=== PATIENT | male | born 1980 | race Caucasian/White ===

== ENCOUNTER 2024-08-10 19:11 | Inpatient (IN) ==
--- NOTE | 2024-08-10 19:22 | Emergency Department Note ---
Impression & Plan Stroke-like episode Admission ED Provider Note HPI: History obtained from EMS. The patient is a 44-year-old gentleman with history of atrial fibrillation, currently on Xarelto, presents to the emergency department with acute onset aphasia and left-sided weakness that occurred approximately 60 minutes prior to arrival to the ER. [facility]. Per EMS crew, the patient has an anaphylactic allergy listed to IV contrast. Patient reportedly developed some aphasia and left-sided paralysis at the present that reportedly occurred at 1740 according to EMS. Per report from EMS the patient did take his Xarelto this morning. On arrival here to the ED the patient is alert, he is aphasic, he is able to follow commands with motor function on the right side but he is not able to speak. ROS: - Per HPI Differential Diagnosis: Acute ischemic stroke, intracranial hemorrhage, conversion disorder, amongst other potential pathologies. *Outpatient medications and allergy history reviewed. 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: (As interpreted by myself): - An order was placed for continuous cardiac monitoring - Patient was noted to be in sinus rhythm with a rate of 70 EKG: (As interpreted by myself): Rate: 68 Rhythm: Normal sinus rhythm Intervals: Within normal limits ST changes: No ST elevation Time: 1935 Interventions provided in ED: - IV Solu-Medrol, aspirin NIH STROKE SCALE: 1A: Level of consciousness Alert; keenly responsive 0 1B: Ask month and age Aphasic +2 1C: 'Blink eyes' & 'squeeze hands' Performs both tasks 0 2: Horizontal extraocular movements Normal 0 3: Visual thomas No visual loss 0 4: Facial palsy Minor paralysis (flat nasolabial fold, smile asymmetry) +1 5A: Left arm motor drift No movement +4 5B: Right arm motor drift No drift for 10 seconds 0 6A: Left leg motor drift No movement +4 6B: Right leg motor drift No drift for 5 seconds 0 7: Limb Ataxia Does not understand 0 8: Sensation Normal; no sensory loss 0 9: Language/aphasia severe aphasia: fragmentary expression, inference needed, cannot identify materials +2 10: Dysarthria 0 11: Extinction/inattention No abnormality 0 TOTAL NIH SCORE = 13 Medical Decision Making: Shortly after the patient arrived, he was sent immediately to CT scan for CT imaging of the head without contrast given his reported anaphylactic reaction to IV contrast. He was not considered a candidate for lysis secondary to being on anticoagulation and taking his medication this morning. CT imaging of the head did not show any evidence of any acute intracranial process. 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 Over suspicion for acute ischemic stroke given the patient's left-sided motor deficits and aphasia, stroke alert was activated prior to his arrival and I did discuss the patient's presentation at this time with the on-call stroke neurologist, Dr. Astudillo. Following my discussion with Dr. Astudillo, it was advised that the patient is comfortable receiving IV contrast that we pretreat the patient, give him IV contrast, and obtain CT angiography of the head and neck to ascertain whether or not he actually has a large vessel occlusion causing these left-sided deficits. Following my discussion with the patient he was able to nod yes or no to questions and said he would like to have the contrast with pretreatment with steroids. CT angiography of the head neck was therefore obtained, this was negative. Dr. Astudillo also did evaluate the patient via telestroke consult, he stated at this time he had low concern for an acute ischemic stroke. He recommended the patient stay here at this facility for observation and further management and this could possibly be related to a conversion disorder. Patient's lab work did not show any evidence of any critical findings, EKG shows sinus rhythm, troponin is negative. I discussed the patient's presentation with the on-call hospitalist, Dr. Meyer, and she accepted the patient for inpatient care. Consultants/Discussions held with other healthcare providers: - Stroke neurology, Dr. Astudillo - Hospitalist, Dr. Meyer Disposition discussion held by myself with: - Patient and [facility] staff at the bedside Diagnosis: 1. Strokelike event, acute Disposition: Admission Cooper Lutz DO Emergency Medicine Past Med/Surg History Problem List (Updated 08/10/24 @ 22:52 by Cooper Lutz DO) Stroke-like episode (Acute) Medical History (Updated 08/10/24 @ 22:52 by Cooper Lutz DO) Stroke Hypertension GERD (gastroesophageal reflux disease) Atrial fibrillation Social History Feels Safe at Home: Yes Allergies Allergies Allergy/AdvReac Type Severity Reaction Status Date / Time Iodinated Contrast Media Allergy Severe Anaphylaxis Verified 08/10/24 19:39 iodine Allergy Severe Anaphylaxis Verified 08/10/24 19:39 aripiprazole [From Abilify] Allergy Unknown ON SCI Verified 08/10/24 19:39 [facility] bee venom protein (honey bee) Allergy Unknown ON SCI Verified 08/10/24 19:39 [facility] L[facility] diphenhydramine Allergy Unknown ON SCI Verified 08/10/24 19:39 [From Benadryl Allergy] [facility] Fish Containing Products Allergy Unknown ON SCI Verified 08/10/24 19:39 [facility] latex Allergy Unknown ON SCI Verified 08/10/24 19:39 [facility] mustard Allergy Unknown ON SCI Verified 08/10/24 19:39 [facility] olanzapine [From Zyprexa] Allergy Unknown ON SCI Verified 08/10/24 19:39 [facility] Penicillins Allergy Unknown ON SCI Verified 08/10/24 19:39 [facility] SEAFOOD Allergy Severe Anaphylaxis Uncoded 08/10/24 19:39 ALLERGY MEDICINE COMPLETE Allergy Unknown ON SCI Uncoded 08/10/24 19:39 [facility] GRAVY Allergy Unknown ON SCI Uncoded 08/10/24 19:39 [facility] Home Meds Home Medications Medication Instructions Recorded Confirmed albuterol sulfate 90 mcg/actuation 2 puff inhalation QID PRN 08/10/24 08/10/24 aerosol inhaler Shortness Of Breath aspirin 81 mg tablet,delayed 81 mg PO DAILY 08/10/24 08/10/24 release fusndrg-rfmkgvajaespz-rwrkmauc 250 2 tab PO BID PRN Headache 08/10/24 08/10/24 mg-250 mg-65 mg tablet (Excedrin Migraine) atorvastatin 80 mg tablet 80 mg PO HS 08/10/24 08/10/24 famotidine 20 mg tablet 20 mg PO HS 08/10/24 08/10/24 fluticasone 500 mcg-salmeterol 50 1 inh inhalation BID 08/10/24 08/10/24 mcg/dose blistr powdr for inhalation (Advair Diskus) lisinopril 20 mg tablet 20 mg PO DAILY 08/10/24 08/10/24 nebivolol 20 mg tablet 20 mg PO DAILY 08/10/24 08/10/24 nitroglycerin 0.4 mg sublingual 0.4 mg sublingual DIRECTED PRN 08/10/24 08/10/24 tablet (Nitrostat) Chest Pain pantoprazole 40 mg tablet,delayed 40 mg PO DAILY 08/10/24 08/10/24 release rivaroxaban 20 mg tablet (Xarelto) 20 mg PO DAILY 08/10/24 08/10/24 vitamin E 1 applic topical DAILY 08/10/24 08/10/24 Results & Data (ED) Vital Signs Vital Signs - 24 hr 08/10/24 19:17 08/10/24 19:17 08/10/24 19:17 Temperature 37.1 C 37.1 C Temperature Source Oral Oral Pulse Rate 74 Pulse Rate [Left Finger] 82 Pulse Rate from SpO2 Sensor Pulse Rhythm [Left Finger] Irregular Pulse Strength [Left Finger] Normal Respiratory Rate 19 25 H Respiratory Effort / Characteristics Non-Labored Spontaneous Non-Labored Spontaneous Respiratory Depth Normal Normal Respiratory Pattern Regular Regular Blood Pressure 138/109 H Blood Pressure [Left Arm] 172/136 H Blood Pressure Mean 118 Blood Pressure Mean [Left Arm] 148 Blood Pressure Position Lying Blood Pressure Position [Left Arm] Lying Pulse Oximetry 97 98 Oxygen Delivery Method Room Air Room Air Room Air Sepsis Recent Fever Within 48 Hours No Sepsis New/Unexplained Change in Mental Status No Sepsis Action Taken by Nursing No Action Required 08/10/24 19:27 08/10/24 19:30 08/10/24 19:31 Temperature Temperature Source Pulse Rate 80 101 H Pulse Rate [Left Finger] Pulse Rate from SpO2 Sensor 87 Pulse Rhythm [Left Finger] Pulse Strength [Left Finger] Respiratory Rate 22 Respiratory Effort / Characteristics Respiratory Depth Respiratory Pattern Blood Pressure 170/129 H Blood Pressure [Left Arm] Blood Pressure Mean 133 Blood Pressure Mean [Left Arm] Blood Pressure Position Blood Pressure Position [Left Arm] Pulse Oximetry 99 Oxygen Delivery Method Sepsis Recent Fever Within 48 Hours Sepsis New/Unexplained Change in Mental Status Sepsis Action Taken by Nursing 08/10/24 19:31 08/10/24 19:33 08/10/24 19:35 Temperature Temperature Source Pulse Rate 77 Pulse Rate [Left Finger] Pulse Rate from SpO2 Sensor 77 Pulse Rhythm [Left Finger] Pulse Strength [Left Finger] Respiratory Rate Respiratory Effort / Characteristics Respiratory Depth Respiratory Pattern Blood Pressure 170/129 H 185/125 H Blood Pressure [Left Arm] Blood Pressure Mean 133 144 Blood Pressure Mean [Left Arm] Blood Pressure Position Blood Pressure Position [Left Arm] Pulse Oximetry 99 Oxygen Delivery Method Sepsis Recent Fever Within 48 Hours Sepsis New/Unexplained Change in Mental Status Sepsis Action Taken by Nursing 08/10/24 19:40 08/10/24 19:40 08/10/24 19:45 Temperature Temperature Source Pulse Rate 74 Pulse Rate [Left Finger] Pulse Rate from SpO2 Sensor 75 Pulse Rhythm [Left Finger] Pulse Strength [Left Finger] Respiratory Rate 14 Respiratory Effort / Characteristics Respiratory Depth Respiratory Pattern Blood Pressure 164/128 H 164/128 H Blood Pressure [Left Arm] Blood Pressure Mean 136 136 Blood Pressure Mean [Left Arm] Blood Pressure Position Blood Pressure Position [Left Arm] Pulse Oximetry 97 Oxygen Delivery Method Sepsis Recent Fever Within 48 Hours Sepsis New/Unexplained Change in Mental Status Sepsis Action Taken by Nursing 08/10/24 19:45 08/10/24 19:45 08/10/24 19:45 Temperature Temperature Source Pulse Rate Pulse Rate [Left Finger] Pulse Rate from SpO2 Sensor Pulse Rhythm [Left Finger] Pulse Strength [Left Finger] Respiratory Rate Respiratory Effort / Characteristics Respiratory Depth Respiratory Pattern Blood Pressure 138/109 H 138/109 H 138/109 H Blood Pressure [Left Arm] Blood Pressure Mean 115 115 115 Blood Pressure Mean [Left Arm] Blood Pressure Position Blood Pressure Position [Left Arm] Pulse Oximetry Oxygen Delivery Method Sepsis Recent Fever Within 48 Hours Sepsis New/Unexplained Change in Mental Status Sepsis Action Taken by Nursing 08/10/24 19:45 08/10/24 19:48 08/10/24 19:51 Temperature Temperature Source Pulse Rate 72 Pulse Rate [Left Finger] Pulse Rate from SpO2 Sensor 72 Pulse Rhythm [Left Finger] Pulse Strength [Left Finger] Respiratory Rate 16 Respiratory Effort / Characteristics Respiratory Depth Respiratory Pattern Blood Pressure 138/109 H 172/136 H Blood Pressure [Left Arm] Blood Pressure Mean 115 149 Blood Pressure Mean [Left Arm] Blood Pressure Position Blood Pressure Position [Left Arm] Pulse Oximetry 98 Oxygen Delivery Method Sepsis Recent Fever Within 48 Hours Sepsis New/Unexplained Change in Mental Status Sepsis Action Taken by Nursing 08/10/24 19:54 08/10/24 19:55 08/10/24 20:00 Temperature Temperature Source Pulse Rate 79 82 Pulse Rate [Left Finger] Pulse Rate from SpO2 Sensor 78 84 Pulse Rhythm [Left Finger] Pulse Strength [Left Finger] Respiratory Rate 17 19 Respiratory Effort / Characteristics Respiratory Depth Respiratory Pattern Blood Pressure 182/123 H Blood Pressure [Left Arm] Blood Pressure Mean 139 Blood Pressure Mean [Left Arm] Blood Pressure Position Blood Pressure Position [Left Arm] Pulse Oximetry 98 97 Oxygen Delivery Method Sepsis Recent Fever Within 48 Hours Sepsis New/Unexplained Change in Mental Status Sepsis Action Taken by Nursing 08/10/24 20:00 08/10/24 20:00 08/10/24 20:12 Temperature Temperature Source Pulse Rate 78 Pulse Rate [Left Finger] Pulse Rate from SpO2 Sensor 78 Pulse Rhythm [Left Finger] Pulse Strength [Left Finger] Respiratory Rate 23 Respiratory Effort / Characteristics Respiratory Depth Respiratory Pattern Blood Pressure 169/118 H 169/118 H Blood Pressure [Left Arm] Blood Pressure Mean 129 129 Blood Pressure Mean [Left Arm] Blood Pressure Position Blood Pressure Position [Left Arm] Pulse Oximetry 97 Oxygen Delivery Method Sepsis Recent Fever Within 48 Hours Sepsis New/Unexplained Change in Mental Status Sepsis Action Taken by Nursing 08/10/24 20:19 08/10/24 20:21 08/10/24 20:30 Temperature Temperature Source Pulse Rate 78 Pulse Rate [Left Finger] Pulse Rate from SpO2 Sensor 78 Pulse Rhythm [Left Finger] Pulse Strength [Left Finger] Respiratory Rate 22 Respiratory Effort / Characteristics Respiratory Depth Respiratory Pattern Blood Pressure 172/106 H 149/110 H Blood Pressure [Left Arm] Blood Pressure Mean 145 121 Blood Pressure Mean [Left Arm] Blood Pressure Position Blood Pressure Position [Left Arm] Pulse Oximetry 96 Oxygen Delivery Method Sepsis Recent Fever Within 48 Hours Sepsis New/Unexplained Change in Mental Status Sepsis Action Taken by Nursing 08/10/24 20:30 08/10/24 20:30 08/10/24 20:54 Temperature Temperature Source Pulse Rate 74 68 Pulse Rate [Left Finger] Pulse Rate from SpO2 Sensor 74 68 Pulse Rhythm [Left Finger] Pulse Strength [Left Finger] Respiratory Rate 19 19 Respiratory Effort / Characteristics Respiratory Depth Respiratory Pattern Blood Pressure 149/110 H Blood Pressure [Left Arm] Blood Pressure Mean 121 Blood Pressure Mean [Left Arm] Blood Pressure Position Blood Pressure Position [Left Arm] Pulse Oximetry 96 96 Oxygen Delivery Method Sepsis Recent Fever Within 48 Hours Sepsis New/Unexplained Change in Mental Status Sepsis Action Taken by Nursing 08/10/24 21:00 08/10/24 21:01 08/10/24 21:01 Temperature Temperature Source Pulse Rate 74 Pulse Rate [Left Finger] Pulse Rate from SpO2 Sensor 65 Pulse Rhythm [Left Finger] Pulse Strength [Left Finger] Respiratory Rate 22 Respiratory Effort / Characteristics Respiratory Depth Respiratory Pattern Blood Pressure 157/90 H 157/90 H Blood Pressure [Left Arm] Blood Pressure Mean 133 133 Blood Pressure Mean [Left Arm] Blood Pressure Position Blood Pressure Position [Left Arm] Pulse Oximetry 95 Oxygen Delivery Method Sepsis Recent Fever Within 48 Hours Sepsis New/Unexplained Change in Mental Status Sepsis Action Taken by Nursing 08/10/24 21:08 08/10/24 21:15 08/10/24 21:15 Temperature Temperature Source Pulse Rate Pulse Rate [Left Finger] 70 Pulse Rate from SpO2 Sensor Pulse Rhythm [Left Finger] Pulse Strength [Left Finger] Respiratory Rate 22 Respiratory Effort / Characteristics Non-Labored Spontaneous Respiratory Depth Normal Respiratory Pattern Regular Blood Pressure 134/89 134/89 Blood Pressure [Left Arm] 136/89 Blood Pressure Mean 104 104 Blood Pressure Mean [Left Arm] 104 Blood Pressure Position Blood Pressure Position [Left Arm] Lying Pulse Oximetry 96 Oxygen Delivery Method Room Air Sepsis Recent Fever Within 48 Hours Sepsis New/Unexplained Change in Mental Status Sepsis Action Taken by Nursing 08/10/24 21:15 08/10/24 21:15 Temperature Temperature Source Pulse Rate 75 Pulse Rate [Left Finger] Pulse Rate from SpO2 Sensor 72 Pulse Rhythm [Left Finger] Pulse Strength [Left Finger] Respiratory Rate 12 Respiratory Effort / Characteristics Respiratory Depth Respiratory Pattern Blood Pressure 134/89 Blood Pressure [Left Arm] Blood Pressure Mean 104 Blood Pressure Mean [Left Arm] Blood Pressure Position Blood Pressure Position [Left Arm] Pulse Oximetry 95 Oxygen Delivery Method Sepsis Recent Fever Within 48 Hours Sepsis New/Unexplained Change in Mental Status Sepsis Action Taken by Nursing Laboratory Data 08/10/24 19:29 08/10/24 19:29 Lab Results 08/10/24 08/10/24 08/10/24 Range/Units 19:29 19:33 19:34 WBC 8.03 (4.8-10.8) K/ul RBC 5.02 (4.70-6.10) M/uL Hgb 15.3 (14.0-18.0) g/dl POC Hgb 15.0 (14.0-18.0) g/dl Hct 44.3 (42.0-52.0) % POC Hct 44 (42-52) % MCV 88.2 (80.0-100.0) fL MCH 30.5 (25.0-34.0) pg MCHC 34.5 (32.0-36.0) g/dL RDW Std Deviation 41.1 (36.4-46.3) fL RDW Coeff of Margareth 12.7 (11.5-14.5) % Plt Count 156 (130-400) K/uL MPV 11.7 (9.4-12.4) fL Immature Gran % (Auto) 0.2 % Neut % (Auto) 58.2 % Lymph % (Auto) 28.3 % [place] % (Auto) 9.0 % Eos % (Auto) 3.6 % Baso % (Auto) 0.7 % Neut # (Auto) 4.67 (1.40-6.50) K/uL Lymph # (Auto) 2.27 (1.20-3.40) K/uL [place] # (Auto) 0.72 H (0.11-0.59) K/uL Eos # (Auto) 0.29 (0.00-0.50) K/uL Baso # (Auto) 0.06 (0.00-0.20) K/uL Immature Gran # (Auto) 0.02 (0.01-0.20) K/uL PT 11.3 (9.0-12.0) Seconds INR 1.0 (0.9-1.1) APTT 28 (21-31) Seconds PTT Ratio 1.0 POC Sodium 142 (135-144) mmol/L Sodium 139 (136-145) mmol/L POC Potassium 3.8 (3.3-5.0) mmol/L Potassium 3.8 (3.5-5.1) mmol/L POC Chloride 100 L (101-112) mmol/L Chloride 105 (98-107) mmol/L Carbon Dioxide 31 (21-32) mmol/L POC Total CO2 25 (24-31) mmol/L Anion Gap 3 (3-11) POC Anion Gap 21.0 (16-25) mmol/L POC BUN 11 (7-18) mg/dl BUN 12 (6-23) mg/dl Creatinine 1.08 (0.6-1.4) mg/dl POC Creatinine 1.2 (0.6-1.3) mg/dl Est Cr Clr Drug Dosing 97.7 ml/min eGFR 86.24 BUN/Creatinine Ratio 11.1 (10-20) Glucose 137 H (70-99(Fasting)) mg/dl POC Glucose 124 H (70-99) mg/dl POC Glucose (other) 137 H (70-99) mg/dl Calcium 9.2 (8.6-10.3) mg/dl POC Ioniz Calcium Marivel 1.19 (1.12-1.32) mmol/l Magnesium 2.0 (1.7-2.4) mg/dl Total Bilirubin 1.0 (0.2-1.0) mg/dl AST 19 (13-39) U/L ALT 28 (7-52) U/L Alkaline Phosphatase 68 (34-104) U/L Troponin I High Sens < 2.3 (0-20) pg/ml Total Protein 7.0 (6.0-8.3) gm/dl Albumin 4.3 (3.4-5.0) gm/dl Globulin 2.7 (2.5-4.0) gm/dl Albumin/Globulin Ratio 1.6 (0.9-2) Administered Medications Lactated Ringer's (Lr) 1,000 mls @ 125 mls/hr IV .Q8H MELINA Stop: 08/11/24 06:16 Last Admin: 08/10/24 22:31 Dose: 125 mls/hr Documented By: KDL Discontinued Medications Aspirin (Aspirin Chew 324 Mg) 324 mg PO NOW STA Stop: 08/10/24 20:49 Last Admin: 08/10/24 20:58 Dose: 324 mg Documented By: BASSEM Ioversol (Optiray 320 125ml) 115 ml IV ONCE ONE Stop: 08/10/24 20:07 Last Admin: 08/10/24 20:07 Dose: 115 ml Documented By: KAREN Methylprednisolone (Methylprednisolone 125 Mg/2 Ml Vial) Confirm Administered Dose 125 mg .ROUTE .STK-MED ONE Stop: 08/10/24 19:56 Last Admin: 08/10/24 20:00 Dose: Not Given Documented By: BASSEM Methylprednisolone (Methylprednisolone 125 Mg/2 Ml Vial) 125 mg IV NOW ONE Stop: 08/10/24 19:56 Last Admin: 08/10/24 20:00 Dose: 125 mg Documented By: BASSEM Imaging Data Radiologist's Impression: Head CT 08/10/24 19:20 EXAMINATION: Head CT without CLINICAL HISTORY: Left-sided weakness PRIORS: None TECHNIQUE: Contiguous axial images were obtained through the head without the use of intravenous contrast. Sagittal and coronal reformations are supplied. FINDINGS: Motion artifact degrades image quality. Appropriate parenchymal volume is noted. Valverde-white differentiation is preserved. No edema or midline shift. Linear appearing lucency present in the left basal ganglia, image 46 through 50 without chronic appearance likely representing a vascular channel or remote infarction No intra-axial or extra-axial hemorrhage. Ventricles are normal in size and configuration. Brainstem and cerebellum have a normal appearance. Moderate to advanced atherosclerotic disease of the distal vertebral arteries at the level of the brainstem at the edge of the [id number]. Calvarium unremarkable. Paranasal sinuses and mastoid air cells are well-pneumatized. Globes are intact. No retrobulbar abnormality. IMPRESSION: 1. No CT evidence of an acute intracranial abnormality. 2. Moderate to advanced atherosclerotic diseases within the syacq-[id number] involving the bilateral distal vertebral arteries at the level of the brainstem. Electronically signed by Tamia Tony 08-10-2024 7:38 PM Head CTA 08/10/24 19:55 CR Exam(s): CTA HEAD With Contrast IV Amt: 115 ml optiray 320 EXAM: CT Angiography Head With Intravenous Contrast CLINICAL HISTORY: Reason for exam: stroke. TECHNIQUE: Axial computed tomographic angiography images of the head with intravenous contrast. CTDI is 18.68 mGy and DLP is 9.34 mGy-cm. Automated exposure control was utilized for the study. A dose lowering technique was utilized adhering to the principles of ALARA. MIP reconstructed images were created and reviewed. CONTRAST: Patient received 115 ml optiray 320 of IV contrast COMPARISON: No relevant prior studies available. FINDINGS: Right internal carotid artery: Intracranial segment is patent with no significant stenosis. No aneurysm. Right anterior cerebral artery: No occlusion or significant stenosis. No aneurysm. Right middle cerebral artery: No occlusion or significant stenosis. No aneurysm. Right posterior cerebral artery: No occlusion or significant stenosis. No aneurysm. Right vertebral artery: Atherosclerotic calcifications at the right vertebral dural entrance causing 50% stenosis. Left internal carotid artery: Intracranial segment is patent with no significant stenosis. No aneurysm. Left anterior cerebral artery: No occlusion or significant stenosis. No aneurysm. Left middle cerebral artery: No occlusion or significant stenosis. No aneurysm. Left posterior cerebral artery: No occlusion or significant stenosis. No aneurysm. Left vertebral artery: Unremarkable as visualized. Basilar artery: No occlusion or significant stenosis. No aneurysm. IMPRESSION: No acute findings in the arteries of the head/brain. Communications: Call Doctor Stroke Electronically signed by: Tavares Wade MD 08/10/24 20:29 PM Neck CTA 08/10/24 19:55 CR Exam(s): CTA NECK With Contrast IV Amt: 115 ml optiray 320 EXAM: CT Angiography Neck With Intravenous Contrast CLINICAL HISTORY: Reason for exam: stroke. TECHNIQUE: Routine carotid CT angiography protocol was performed with intravenous contrast. NASCET criteria using the distal ICAs for comparison were used for evaluation of stenoses. CTDI is 12.8 mGy and DLP is 474.3 mGy-cm. Automated exposure control was utilized for the study. A dose lowering technique was utilized adhering to the principles of ALARA. MIP reconstructed images were created and reviewed. CONTRAST: Patient received 115 ml optiray 320 of IV contrast COMPARISON: None. FINDINGS: VASCULATURE: Right common carotid artery: No occlusion or significant stenosis. No dissection. Right internal carotid artery: Extracranial segment is patent with no occlusion or significant stenosis. No dissection. Right vertebral artery: No occlusion or significant stenosis. No dissection. Left common carotid artery: No occlusion or significant stenosis. No dissection. Left internal carotid artery: Extracranial segment is patent with no occlusion or significant stenosis. No dissection. Left vertebral artery: No occlusion or significant stenosis. No dissection. NECK: Bones/joints: Unremarkable. No acute fracture. Soft tissues: Unremarkable. Lung apices: Clear. CAROTID STENOSIS REFERENCE USING NASCET CRITERIA: % ICA stenosis = (1 - narrowest ICA diameter/diameter of distal cervical ICA) x 100. Mild - <50% stenosis. Moderate - 50-69% stenosis. Severe - 70-94% stenosis. Near occlusion - 95-99% stenosis. Occluded - 100% stenosis. IMPRESSION: Negative CTA neck. Communications: Call Doctor Stroke Electronically signed by: Tavares Wade MD 08/10/24 20:30 PM Discharge Plan Visit Data Chief Complaint: Stroke Alert Stated Complaint: L Sided Paralysis, Complete Aphasia, HUGHES ED Provider: Cooper Lutz Discharge Problem: Stroke-like episode Patient Disposition: Admitted As Inpatient Discharge Instructions Interventions: ED Discharge Assessment Last Done: 08/10/24 22:07
--- NOTE | 2024-08-10 19:39 | CT Scan Report ---
EXAMINATION: Head CT without CLINICAL HISTORY: Left-sided weakness PRIORS: None TECHNIQUE: Contiguous axial images were obtained through the head without the use of intravenous contrast. Sagittal and coronal reformations are supplied. FINDINGS: Motion artifact degrades image quality. Appropriate parenchymal volume is noted. Valverde-white differentiation is preserved. No edema or midline shift. Linear appearing lucency present in the left basal ganglia, image 46 through 50 without chronic appearance likely representing a vascular channel or remote infarction No intra-axial or extra-axial hemorrhage. Ventricles are normal in size and configuration. Brainstem and cerebellum have a normal appearance. Moderate to advanced atherosclerotic disease of the distal vertebral arteries at the level of the brainstem at the edge of the [id number]. Calvarium unremarkable. Paranasal sinuses and mastoid air cells are well-pneumatized. Globes are intact. No retrobulbar abnormality. IMPRESSION: 1. No CT evidence of an acute intracranial abnormality. 2. Moderate to advanced atherosclerotic diseases within the [id number] involving the bilateral distal vertebral arteries at the level of the brainstem. Electronically signed by Tamia oTny 08-10-2024 7:38 PM
[2024-08-10 19:45] LABS: Basophils # (auto) 0.06 K/uL (0.00-0.20); Basophils % (auto) 0.7 %; Eosinophils # (auto) 0.29 K/uL (0.00-0.50); Eosinophils % (auto) 3.6 %; Hematocrit (blood only) 44.3 % (42.0-52.0); Hemoglobin 15.3 g/dl (14.0-18.0); Immature Granulocytes # (auto) 0.02 K/uL (0.01-0.20); Immature Granulocytes % (auto) 0.2 %; Lymphocytes # (auto) 2.27 K/uL (1.20-3.40); Lymphocytes % (auto) 28.3 %; Mean Corpuscular Hemoglobin 30.5 pg (25.0-34.0); Mean Corpuscular Hgb Conc 34.5 g/dL (32.0-36.0); Mean Corpuscular Volume 88.2 fL (80.0-100.0); Mean Platelet Volume 11.7 fL (9.4-12.4); Monocytes # (auto) 0.72 K/uL (0.11-0.59); Neutrophils # (auto) 4.67 K/uL (1.40-6.50); Neutrophils % (auto) 58.2 %; Platelet Count 156 K/uL (130-400); RDW Coefficient of Variation 12.7 % (11.5-14.5); RDW Standard Deviation 41.1 fL (36.4-46.3); Red Blood Count 5.02 M/uL (4.70-6.10); White Blood Count 8.03 K/ul (4.8-10.8)
[2024-08-10 19:46] LABS: iSTAT Creatinine 1.2 mg/dl (0.6-1.3); iSTAT Ionized Calcium 1.19 mmol/l (1.12-1.32); iSTAT Potassium 3.8 mmol/L (3.3-5.0)
[2024-08-10] MEDS: methylPREDNISolone 125 MG/2 ML VIAL ONE (20:00)
[2024-08-10] MEDS: methylPREDNISolone 125 MG/2 ML VIAL IV ONE (20:00)
[2024-08-10 20:02] LABS: Alanine Aminotransferase 28 U/L (7-52); Albumin Globulin Ratio 1.6 (0.9-2); Albumin Level 4.3 gm/dl (3.4-5.0); Alkaline Phosphatase 68 U/L (34-104); Anion Gap 3 (3-11); Aspartate Aminotransferase 19 U/L (13-39); BUN Creatinine Ratio 11.1 (10-20); Blood Urea Nitrogen 12 mg/dl (6-23); Calcium 9.2 mg/dl (8.6-10.3); Carbon Dioxide 31 mmol/L (21-32); Chloride 105 mmol/L (98-107); Creatinine Clr Calc Pharmacy 97.7 ml/min; Globulin 2.7 gm/dl (2.5-4.0); Glucose 137 mg/dl (70-99(Fasting)); Potassium 3.8 mmol/L (3.5-5.1); Sodium 139 mmol/L (136-145)
[2024-08-10] MEDS: OPTIRAY 320 125ml IV ONE (20:07)
[2024-08-10 20:08] LABS: Troponin I High Sensitivity < 2.3 pg/ml (0-20)
[2024-08-10 20:12] LABS: Partial Thromboplastin Time 28 Seconds (21-31); Prothrombin Time 11.3 Seconds (9.0-12.0)
--- NOTE | 2024-08-10 20:30 | CT Scan Report ---
Exam(s): CTA HEAD With Contrast IV Amt: 115 ml optiray 320 EXAM: CT Angiography Head With Intravenous Contrast CLINICAL HISTORY: Reason for exam: stroke. TECHNIQUE: Axial computed tomographic angiography images of the head with intravenous contrast. CTDI is 18.68 mGy and DLP is 9.34 mGy-cm. Automated exposure control was utilized for the study. A dose lowering technique was utilized adhering to the principles of ALARA. MIP reconstructed images were created and reviewed. CONTRAST: Patient received 115 ml optiray 320 of IV contrast COMPARISON: No relevant prior studies available. FINDINGS: Right internal carotid artery: Intracranial segment is patent with no significant stenosis. No aneurysm. Right anterior cerebral artery: No occlusion or significant stenosis. No aneurysm. Right middle cerebral artery: No occlusion or significant stenosis. No aneurysm. Right posterior cerebral artery: No occlusion or significant stenosis. No aneurysm. Right vertebral artery: Atherosclerotic calcifications at the right vertebral dural entrance causing 50% stenosis. Left internal carotid artery: Intracranial segment is patent with no significant stenosis. No aneurysm. Left anterior cerebral artery: No occlusion or significant stenosis. No aneurysm. Left middle cerebral artery: No occlusion or significant stenosis. No aneurysm. Left posterior cerebral artery: No occlusion or significant stenosis. No aneurysm. Left vertebral artery: Unremarkable as visualized. Basilar artery: No occlusion or significant stenosis. No aneurysm. IMPRESSION: No acute findings in the arteries of the head/brain. Communications: Call Doctor Stroke Electronically signed by: Tavares Wade MD 08/10/24 20:29 PM
--- NOTE | 2024-08-10 20:31 | CT Scan Report ---
Exam(s): CTA NECK With Contrast IV Amt: 115 ml optiray 320 EXAM: CT Angiography Neck With Intravenous Contrast CLINICAL HISTORY: Reason for exam: stroke. TECHNIQUE: Routine carotid CT angiography protocol was performed with intravenous contrast. NASCET criteria using the distal ICAs for comparison were used for evaluation of stenoses. CTDI is 12.8 mGy and DLP is 474.3 mGy-cm. Automated exposure control was utilized for the study. A dose lowering technique was utilized adhering to the principles of ALARA. MIP reconstructed images were created and reviewed. CONTRAST: Patient received 115 ml optiray 320 of IV contrast COMPARISON: None. FINDINGS: VASCULATURE: Right common carotid artery: No occlusion or significant stenosis. No dissection. Right internal carotid artery: Extracranial segment is patent with no occlusion or significant stenosis. No dissection. Right vertebral artery: No occlusion or significant stenosis. No dissection. Left common carotid artery: No occlusion or significant stenosis. No dissection. Left internal carotid artery: Extracranial segment is patent with no occlusion or significant stenosis. No dissection. Left vertebral artery: No occlusion or significant stenosis. No dissection. NECK: Bones/joints: Unremarkable. No acute fracture. Soft tissues: Unremarkable. Lung apices: Clear. CAROTID STENOSIS REFERENCE USING NASCET CRITERIA: % ICA stenosis = (1 - narrowest ICA diameter/diameter of distal cervical ICA) x 100. Mild - <50% stenosis. Moderate - 50-69% stenosis. Severe - 70-94% stenosis. Near occlusion - 95-99% stenosis. Occluded - 100% stenosis. IMPRESSION: Negative CTA neck. Communications: Call Doctor Stroke Electronically signed by: Tavares Wade MD 08/10/24 20:30 PM
[2024-08-10] MEDS: ASPIRIN CHEW 324 MG PO STA (20:58)
--- NOTE | 2024-08-10 21:20 | History & Physical Report ---
Date of Service August 10, 2024 Assessment & Plan (1) Stroke: (2) Atrial fibrillation: (3) GERD (gastroesophageal reflux disease): (4) Hypertension: Plan 44-year-old male with history of atrial fibrillation on Xarelto anticoagulation, hypertension, GERD presenting with acute onset left-sided weakness occurring at 1940 this evening. Patient also with total aphasia. He reports extensive history of prior strokes and TIAs in the past. Reports compliance with his medications including his Xarelto, aspirin and atorvastatin #Strokepatient presenting with strokelike symptoms as above. Possible stroke versus TIA versus psychosomatic. Pattern would suggest possible right MCA stroke. CT angio as well as CT of the head unremarkable. Patient not a candidate for thrombolytics given the fact that he is on daily Xarelto Admit to PCU NIH stroke scale daily, neurochecks per protocol Speech/swallow evaluation. Patient was able to take oral aspirin with a sip of water in the ER with no evidence of aspiration Check MRI brain Check 2D echo with bubble study Check hemoglobin A1c and lipid panel Request prior records from [facility] PT/OT/speech therapy appreciated Continue aspirin 81 mg p.o. daily Continue atorvastatin 80 mg p.o. nightly Awaiting note to be placed from stroke neurologist from [facility] #atrial fibrillationpatient presently in normal sinus rhythm at 68 bpm Hold Xarelto for now Hold Nebivolol for now to allow for permissive hypertension #GERD Protonix 40 mg IV daily Pepcid 20 mg IV twice daily Transition to oral medications after speech/swallow evaluation Hypertensionblood pressure is presently at goal Hold Nebivolol and lisinopril to allow for permissive hypertension Continue to monitor History of Present Illness Chief Complaint: Left-sided flaccid paralysis Primary Care Provider: SANAZ Ahn Anibal Krishan Is a 44-year-old male with history of atrial fibrillation on Xarelto anticoagulation, reports 5 prior strokes as well as 40 prior TIAs in the past with residual weakness of left lower extremity. Patient is wheelchair- bound at baseline. He reports compliance with his medications. This evening August 10 around 1740 patient developed acute left-sided deficits, flaccid paralysis of left upper extremity as well as left lower extremity and complete aphasia. Patient presented as a code stroke. Angiograms initially delayed slightly due to reported anaphylactic reaction to IV dye. This was confirmed with the present and patient was indeed able to receive IV dye. He is complaining of slight right-sided headache as well as black dots in his vision coming and going. Otherwise denies fever, chills, chest pain, palpitations, shortness of breath, abdominal pain, nausea, vomiting, diarrhea. Reports he is eating well. Bowels are moving without difficulty. He reports being in his usual state of health prior to this episode Of note, patient aphasic therefore provided history with use of pointing to communication board Allergies Allergy/AdvReac Type Severity Reaction Status Date / Time Iodinated Contrast Media Allergy Severe Anaphylaxis Verified 08/10/24 19:39 iodine Allergy Severe Anaphylaxis Verified 08/10/24 19:39 aripiprazole [From Abilify] Allergy Unknown ON SCI Verified 08/10/24 19:39 [facility] LIST bee venom protein (honey bee) Allergy Unknown ON SCI Verified 08/10/24 19:39 [facility] MED LIST diphenhydramine Allergy Unknown ON SCI Verified 08/10/24 19:39 [From Benadryl Allergy] [facility] MED LIST Fish Containing Products Allergy Unknown ON SCI Verified 08/10/24 19:39 [facility] LIST latex Allergy Unknown ON SCI Verified 08/10/24 19:39 [facility] LIST mustard Allergy Unknown ON SCI Verified 08/10/24 19:39 [facility] MED LIST olanzapine [From Zyprexa] Allergy Unknown ON SCI Verified 08/10/24 19:39 [facility] LIST Penicillins Allergy Unknown ON SCI Verified 08/10/24 19:39 [facility] LIST SEAFOOD Allergy Severe Anaphylaxis Uncoded 08/10/24 19:39 ALLERGY MEDICINE COMPLETE Allergy Unknown ON SCI Uncoded 08/10/24 19:39 [facility] LIST GRAVY Allergy Unknown ON SCI Uncoded 08/10/24 19:39 [facility] MED LIST Home Medications Medication Instructions Recorded Confirmed Type albuterol sulfate 90 mcg/actuation 2 puff inhalation QID PRN 08/10/24 08/10/24 History aerosol inhaler Shortness Of Breath aspirin 81 mg tablet,delayed 81 mg PO DAILY 08/10/24 08/10/24 History release fcbuodv-islhvqnecmpzf-dmzonhzg 250 2 tab PO BID PRN Headache 08/10/24 08/10/24 History mg-250 mg-65 mg tablet (Excedrin Migraine) atorvastatin 80 mg tablet 80 mg PO HS 08/10/24 08/10/24 History famotidine 20 mg tablet 20 mg PO HS 08/10/24 08/10/24 History fluticasone 500 mcg-salmeterol 50 1 inh inhalation BID 08/10/24 08/10/24 History mcg/dose blistr powdr for inhalation (Advair Diskus) lisinopril 20 mg tablet 20 mg PO DAILY 08/10/24 08/10/24 History nebivolol 20 mg tablet 20 mg PO DAILY 08/10/24 08/10/24 History nitroglycerin 0.4 mg sublingual 0.4 mg sublingual DIRECTED PRN 08/10/24 08/10/24 History tablet (Nitrostat) Chest Pain pantoprazole 40 mg tablet,delayed 40 mg PO DAILY 08/10/24 08/10/24 History release rivaroxaban 20 mg tablet (Xarelto) 20 mg PO DAILY 08/10/24 08/10/24 History vitamin E 1 applic topical DAILY 08/10/24 08/10/24 History Past Med/Surg History Problem List (Updated 08/10/24 @ 22:52 by Cooper Lutz DO) Stroke-like episode (Acute) Medical History (Updated 08/10/24 @ 22:52 by Cooper Lutz DO) Stroke Hypertension GERD (gastroesophageal reflux disease) Atrial fibrillation Social History Smoking Status: Never smoker Hx Alcohol Use: No Hx Substance Use: No Preferred Language: Kyrgyz Communication Ability: Impaired 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 Technical 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 Required: No Beliefs That Will Affect Care: None Current Living Situation: Other Current Living Situation Comment: [facility] Feels Safe at Home: Yes Safety Concerns: Feels Safe At This Time Assistive Devices: Glasses and Wheelchair Assistive Devices Comment: loop recorder Review of Systems Review of Systems: All systems reviewed & are unremarkable except as noted in HPI & below Physical Exam Physical Exam: General: patient aphasic, NAD Skin: warm, dry, intact, no rashes or lesions HEENT: NC/AT, PERRL, EOMI, anicteric sclera, conjunctiva without injection, external ear normal to inspection and nontender, nares patent, moist mucus membranes, dentition intact, no oropharyngeal lesions, neck supple, trachea midline, no LAD, no thyromegaly, no JVD Heart: +S1/S2, regular, no m/r/g, no carotid bruits Lungs: equal air entry bilaterally, no rales/rhonchi/wheezes Abd: +BS, soft, NT/ND, no masses/organomegaly/ascites Ext: warm, 2+ pulses in UE/LE bilaterally, no clubbing/cyanosis or edema Neuro: patient aphasic, using communication board to answer questions, reports mildly diminished hearing in the left ear, limited protrusion of tongue but appears to be midline, pupils equal round and reactive to light, diminished sensation to light touch in left upper extremity and left lower extremity, strength 0 out of 5 in left upper extremity and left lower extremity, strength 5 out of 5 in right upper extremity and right lower extremity Results & Data Results & Data Vital Signs (Past 12 Hours) Vital Signs Temp Pulse Pulse Resp BP BP Pulse Ox 08/10/24 20:21 78 22 96 08/10/24 20:19 172/106 H 08/10/24 20:12 78 23 97 08/10/24 20:00 169/118 H 08/10/24 20:00 169/118 H 08/10/24 20:00 82 19 97 08/10/24 19:55 182/123 H 08/10/24 19:54 79 17 98 08/10/24 19:51 172/136 H 08/10/24 19:48 72 16 98 08/10/24 19:45 138/109 H 08/10/24 19:45 138/109 H 08/10/24 19:45 138/109 H 08/10/24 19:45 138/109 H 08/10/24 19:45 74 14 97 08/10/24 19:40 164/128 H 08/10/24 19:40 164/128 H 08/10/24 19:35 185/125 H 08/10/24 19:33 77 99 08/10/24 19:31 170/129 H 08/10/24 19:31 170/129 H 08/10/24 19:30 101 H 22 99 08/10/24 19:27 80 08/10/24 19:17 37.1 C 82 25 H 172/136 H 98 08/10/24 19:17 08/10/24 19:17 37.1 C 74 19 138/109 H 97 O2 Del Method 08/10/24 20:21 08/10/24 20:19 08/10/24 20:12 08/10/24 20:00 08/10/24 20:00 08/10/24 20:00 08/10/24 19:55 08/10/24 19:54 08/10/24 19:51 08/10/24 19:48 08/10/24 19:45 08/10/24 19:45 08/10/24 19:45 08/10/24 19:45 08/10/24 19:45 08/10/24 19:40 08/10/24 19:40 08/10/24 19:35 08/10/24 19:33 08/10/24 19:31 08/10/24 19:31 08/10/24 19:30 08/10/24 19:27 08/10/24 19:17 Room Air 08/10/24 19:17 Room Air 08/10/24 19:17 Room Air Laboratory Results Laboratory Results WBC 8.03 K/ul (4.8-10.8) 08/10/24 19:29 RBC 5.02 M/uL (4.70-6.10) 08/10/24 19:29 Hgb 15.3 g/dl (14.0-18.0) 08/10/24 19:29 POC Hgb 15.0 g/dl (14.0-18.0) 08/10/24 19:34 Hct 44.3 % (42.0-52.0) 08/10/24 19:29 POC Hct 44 % (42-52) 08/10/24 19:34 MCV 88.2 fL (80.0-100.0) 08/10/24 19:29 MCH 30.5 pg (25.0-34.0) 08/10/24 19:29 MCHC 34.5 g/dL (32.0-36.0) 08/10/24 19:29 RDW Std Deviation 41.1 fL (36.4-46.3) 08/10/24 19:29 RDW Coeff of Margareth 12.7 % (11.5-14.5) 08/10/24 19:29 Plt Count 156 K/uL (130-400) 08/10/24 19:29 MPV 11.7 fL (9.4-12.4) 08/10/24 19: Immature Gran % (Auto) 0.2 % 08/10/24 19: Neut % (Auto) 58.2 % 08/10/24 19: Lymph % (Auto) 28.3 % 08/10/24 19: Simpson % (Auto) 9.0 % 08/10/24: Eos % (Auto) 3.6 % 08/10/24: Baso % (Auto) 0.7 % 08/10/24: Neut # (Auto) 4.67 K/uL (1.40-6.50) 08/10/24: Lymph # (Auto) 2.27 K/uL (1.20-3.40) 08/10/24: Simpson # (Auto) 0.72 K/uL (0.11-0.59) H 08/10/24: Eos # (Auto) 0.29 K/uL (0.00-0.50) 08/10/24 19: Baso # (Auto) 0.06 K/uL (0.00-0.20) 08/10/24: Immature Gran # (Auto) 0.02 K/uL (0.01-0.20) 08/10/24 19: PT 11.3 Seconds (9.0-12.0) 08/10/24 19: INR 1.0 (0.9-1.1) 08/10/24 19: APTT 28 Seconds (21-31) 08/10/24 19: PTT Ratio 1.0 08/10/24 19:29 POC Sodium 142 mmol/L (135-144) 08/10/24 19:34 Sodium 139 mmol/L (136-145) 08/10/24 19: POC Potassium 3.8 mmol/L (3.3-5.0) 08/10/24 19:34 Potassium 3.8 mmol/L (3.5-5.1) 08/10/24 19:29 POC Chloride 100 mmol/L (101-112) L 08/10/24 19:34 Chloride 105 mmol/L (98-107) 08/10/24 19: Carbon Dioxide 31 mmol/L (21-32) 08/10/24 19:29 POC Total CO2 25 mmol/L (24-31) 08/10/24 19:34 Anion Gap 3 (3-11) 08/10/24 19:29 POC Anion Gap 21.0 mmol/L (16-25) 08/10/24 19:34 POC BUN 11 mg/dl (7-18) 08/10/24 19:34 BUN 12 mg/dl (6-23) 08/10/24 19:29 Creatinine 1.08 mg/dl (0.6-1.4) 08/10/24 19:29 POC Creatinine 1.2 mg/dl (0.6-1.3) 08/10/24 19:34 Est Cr Clr Drug Dosing 97.7 ml/min 08/10/24 19:29 eGFR 86.24 08/10/24 19:29 BUN/Creatinine Ratio 11.1 (10-20) 08/10/24 19:29 Glucose 137 mg/dl (70-99(Fasting)) H 08/10/24 19:29 POC Glucose 124 mg/dl (70-99) H 08/10/24 19:33 POC Glucose (other) 137 mg/dl (70-99) H 08/10/24 19:34 Calcium 9.2 mg/dl (8.6-10.3) 08/10/24 19:29 POC Ioniz Calcium Marivel 1.19 mmol/l (1.12-1.32) 08/10/24 19:34 Magnesium 2.0 mg/dl (1.7-2.4) 08/10/24 19:29 Total Bilirubin 1.0 mg/dl (0.2-1.0) 08/10/24 19:29 AST 19 U/L (13-39) 08/10/24 19:29 ALT 28 U/L (7-52) 08/10/24 19:29 Alkaline Phosphatase 68 U/L (34-104) 08/10/24 19:29 Troponin I High Sens < 2.3 pg/ml (0-20) 08/10/24 19:29 Total Protein 7.0 gm/dl (6.0-8.3) 08/10/24 19:29 Albumin 4.3 gm/dl (3.4-5.0) 08/10/24 19:29 Globulin 2.7 gm/dl (2.5-4.0) 08/10/24 19:29 Albumin/Globulin Ratio 1.6 (0.9-2) 08/10/24 19:[address] 08/10/24 19:20 EXAMINATION: Head CT without CLINICAL HISTORY: Left-sided weakness PRIORS: None TECHNIQUE: Contiguous axial images were obtained through the head without the use of intravenous contrast. Sagittal and coronal reformations are supplied. FINDINGS: Motion artifact degrades image quality. Appropriate parenchymal volume is noted. Valverde-white differentiation is preserved. No edema or midline shift. Linear appearing lucency present in the left basal ganglia, image 46 through 50 without chronic appearance likely representing a vascular channel or remote infarction No intra-axial or extra-axial hemorrhage. Ventricles are normal in size and configuration. Brainstem and cerebellum have a normal appearance. Moderate to advanced atherosclerotic disease of the distal vertebral arteries at the level of the brainstem at the edge of the ffpht-[id number]-drwq. Calvarium unremarkable. Paranasal sinuses and mastoid air cells are well-pneumatized. Globes are intact. No retrobulbar abnormality. IMPRESSION: 1. No CT evidence of an acute intracranial abnormality. 2. Moderate to advanced atherosclerotic diseases within the [id number] involving the bilateral distal vertebral arteries at the level of the brainstem. Electronically signed by Tamia Tony 08-10-2024 7:38 PM Head CTA 08/10/24 19:55 CR Exam(s): CTA HEAD With Contrast IV Amt: 115 ml optiray 320 EXAM: CT Angiography Head With Intravenous Contrast CLINICAL HISTORY: Reason for exam: stroke. TECHNIQUE: Axial computed tomographic angiography images of the head with intravenous contrast. CTDI is 18.68 mGy and DLP is 9.34 mGy-cm. Automated exposure control was utilized for the study. A dose lowering technique was utilized adhering to the principles of ALARA. MIP reconstructed images were created and reviewed. CONTRAST: Patient received 115 ml optiray 320 of IV contrast COMPARISON: No relevant prior studies available. FINDINGS: Right internal carotid artery: Intracranial segment is patent with no significant stenosis. No aneurysm. Right anterior cerebral artery: No occlusion or significant stenosis. No aneurysm. Right middle cerebral artery: No occlusion or significant stenosis. No aneurysm. Right posterior cerebral artery: No occlusion or significant stenosis. No aneurysm. Right vertebral artery: Atherosclerotic calcifications at the right vertebral dural entrance causing 50% stenosis. Left internal carotid artery: Intracranial segment is patent with no significant stenosis. No aneurysm. Left anterior cerebral artery: No occlusion or significant stenosis. No aneurysm. Left middle cerebral artery: No occlusion or significant stenosis. No aneurysm. Left posterior cerebral artery: No occlusion or significant stenosis. No aneurysm. Left vertebral artery: Unremarkable as visualized. Basilar artery: No occlusion or significant stenosis. No aneurysm. IMPRESSION: No acute findings in the arteries of the head/brain. Communications: Call Doctor Stroke Electronically signed by: Tavares Wade MD 08/10/24 20:29 PM Neck CTA 08/10/24 19:55 CR Exam(s): CTA NECK With Contrast IV Amt: 115 ml optiray 320 EXAM: CT Angiography Neck With Intravenous Contrast CLINICAL HISTORY: Reason for exam: stroke. TECHNIQUE: Routine carotid CT angiography protocol was performed with intravenous contrast. NASCET criteria using the distal ICAs for comparison were used for evaluation of stenoses. CTDI is 12.8 mGy and DLP is 474.3 mGy-cm. Automated exposure control was utilized for the study. A dose lowering technique was utilized adhering to the principles of ALARA. MIP reconstructed images were created and reviewed. CONTRAST: Patient received 115 ml optiray 320 of IV contrast COMPARISON: None. FINDINGS: VASCULATURE: Right common carotid artery: No occlusion or significant stenosis. No dissection. Right internal carotid artery: Extracranial segment is patent with no occlusion or significant stenosis. No dissection. Right vertebral artery: No occlusion or significant stenosis. No dissection. Left common carotid artery: No occlusion or significant stenosis. No dissection. Left internal carotid artery: Extracranial segment is patent with no occlusion or significant stenosis. No dissection. Left vertebral artery: No occlusion or significant stenosis. No dissection. NECK: Bones/joints: Unremarkable. No acute fracture. Soft tissues: Unremarkable. Lung apices: Clear. CAROTID STENOSIS REFERENCE USING NASCET CRITERIA: % ICA stenosis = (1 - narrowest ICA diameter/diameter of distal cervical ICA) x 100. Mild - <50% stenosis. Moderate - 50-69% stenosis. Severe - 70-94% stenosis. Near occlusion - 95-99% stenosis. Occluded - 100% stenosis. IMPRESSION: Negative CTA neck. Communications: Call Doctor Stroke Electronically signed by: Tavares Wade MD 08/10/24 20:30 PM Code Status & VTE Plan VTE Prophylaxis Plan VTE Prophylaxis will be ordered: Yes PG Care Time/CCT Total # of Minutes Spent Total Time Spent with Patient: Total time spent is greater than 50% in coordination of care (as documented) at patient's floor/unit and/or counseling patient: Coding Level of Care Code 54530 INT INP/OBS CARE 3/75MIN Diagnoses Stroke I63.9 Atrial fibrillation I48.91 GERD (gastroesophageal reflux disease) K21.9 Hypertension I10
[2024-08-10] MEDS ORDERED: PHARMACIST DISCHARGE MED REC CONSULT PRN (22:17)
[2024-08-10] MEDS ORDERED: ALBUTEROL HFA 8 GM INHALER INH PRN (22:17)
[2024-08-10] MEDS ORDERED: ONDANSETRON INJ 2 MG/ML 2 ML VIAL IV PRN (22:17)
[2024-08-10] MEDS: LACTATED RINGER'S 1,000 ML IV SCH (22:31)
[2024-08-11] MEDS: FAMOTIDINE 20MG IV PUSH 20 MG/5 ML SYR IV SCH (00:08)
[2024-08-11 07:40] LABS: Hematocrit (blood only) 42.3 % (42.0-52.0); Hemoglobin 14.7 g/dl (14.0-18.0); Mean Corpuscular Hemoglobin 30.5 pg (25.0-34.0); Mean Corpuscular Hgb Conc 34.8 g/dL (32.0-36.0); Mean Corpuscular Volume 87.8 fL (80.0-100.0); Mean Platelet Volume 12.1 fL (9.4-12.4); Platelet Count 163 K/uL (130-400); RDW Coefficient of Variation 12.6 % (11.5-14.5); RDW Standard Deviation 40.2 fL (36.4-46.3); Red Blood Count 4.82 M/uL (4.70-6.10); White Blood Count 7.31 K/ul (4.8-10.8)
[2024-08-11 07:58] LABS: BUN Creatinine Ratio 15.2 (10-20); Calcium 9.1 mg/dl (8.6-10.3); Chol HDL Ratio 3.5 (0-5); Creatinine Clr Calc Pharmacy 112.6 ml/min; Potassium 4.1 mmol/L (3.5-5.1)
[2024-08-11 08:03] LABS: Basophils # (auto) 0.01 K/uL (0.00-0.20); Basophils % (auto) 0.1 %; Echinocytes 1+; Immature Granulocytes # (auto) 0.03 K/uL (0.01-0.20); Immature Granulocytes % (auto) 0.4 %; Lymphocytes # (auto) 0.57 K/uL (1.20-3.40); Lymphocytes % (auto) 7.8 %; Monocytes # (auto) 0.08 K/uL (0.11-0.59); Monocytes % (auto) 1.1 %; Neutrophils # (auto) 6.62 K/uL (1.40-6.50); Neutrophils % (auto) 90.6 %
[2024-08-11 08:33] LABS: Estimated Average Glucose 85 mg/dl; Hemoglobin A1C 4.6 % (4.5-5.6)
--- NOTE | 2024-08-11 09:44 | XCELERA ---
[id number] \\[email or web address]\[id number]
[2024-08-11] MEDS: ASPIRIN 81 MG ECTAB PO SCH (10:13)
[2024-08-11] MEDS: FLUTICASONE/VILANTEROL 200/25MCG 14 PUFFS/INHALER INH SCH (10:15)
[2024-08-11] MEDS: PANTOprazole 40 MG/10 ML SYR IV SCH (10:16)
--- NOTE | 2024-08-11 10:19 | Electrocardiogram Report ---
Test Reason : Blood Pressure : */* mmHG Vent. Rate : 68 BPM Atrial Rate : 68 BPM P-R Int : 150 ms QRS Dur : 88 ms QT Int : 394 ms P-R-T Axes : 61 12 13 degrees QTcB Int : 418 ms Normal sinus rhythm Normal ECG No previous ECGs available Confirmed by Gamal Erazo ([id number]) on 08/11/2024 10:18:14 AM Referred By: [facility] Confirmed By: Gamal Erazo
[2024-08-11] MEDS: ACETAMINOPHEN 1,000 MG/100 ML VIAL IV STA (10:39)
--- NOTE | 2024-08-11 14:40 | Hospitalist Progress Note ---
Date of Service August 11, 2024 Assessment & Plan (1) Stroke: (2) Atrial fibrillation: (3) GERD (gastroesophageal reflux disease): (4) Hypertension: Plan 44-year-old male with history of atrial fibrillation on Xarelto anticoagulation, hypertension, GERD presenting with acute onset left-sided weakness occurring at 1940 this evening. Patient also with total aphasia. He reports extensive history of prior strokes and TIAs in the past. Reports compliance with his medications including his Xarelto, aspirin and atorvastatin Strokelike deficits ? CVA, on telestroke eval some concern for psychosomatic. - Left upper/left lower extremity symptoms suggestive of right MCA CThead/CTA angio unremarkable. No thrombolysis candidate On rounding exam has mutism but does not have true aphasia as he is able to express himself clearly using communication board, understand speech and is not dysarthric as he does not make any verbalizations. He is able to produce a productive cough and was able to swallow with speech therapy. No activation of strength on left upper/left lower extremity testing Neurochecks per protocol - EEG pending Echo with LV SF normal, suboptimal saline injection PFO was not excluded, EF normal MRI was pending however this cannot be obtained as he has a ICD which is not MRI compatible. Reportedly was placed 3-4 years ago at [facility] in context of a heart attack. Further details are pending, records have been requested from [facility]. Continue statin LDL 96, continue atorvastatin 80 mg No occlusion is seen on CTA so he is not a thrombectomy candidate, and he was not a thrombolysis candidate due to his anticoagulation. With his past history of stroke regardless of his progression on CT unless very large deficits or bleeding is seen the likely target conversion of his antiplatelet to Plavix and resume Xarelto at 72 hours. COPD Continue albuterol as needed Continue Advair Hypertension Lisinopril/Nebivolol were held for 24 hours to allow permissive hypertension. Normotensive on recheck Beta-angeles and lisinopril resumed Paroxysmal A-fib Continue Nebivolol 08/12 Xarelto held for stroke eval. Added Lovenox for DVT prophylaxis, stroke is ruled out or most outside the appropriate time window can discontinue this and resume Xarelto - EKG sinus on admit - Remains in sinus ICD/pacemaker - Patient reports he has no history of heart failure, did have a heart attack and has a cardiac device. Per MRI this is a [employer] ICD Model No: A209. Patient reports this was placed at [facility] because of a heart attack. He denies any recent chest pain and denies diuretic use. No acute ischemic changes on admitting EKG and high sensitive troponin is normal. Further record clarification pending from [facility], records request has been faxed Did discuss with [facility] on 08/11. They have had a change of shift and are unable to confirm the model number, but on record review report they have no documentation over why it was placed and whether he had an ICD or pacemaker. Further records no documentation that he has had a [place], heart failure, or heart block. Does have a history of A-fib. Patient was previously transferred from [facility], can attempt to obtain additional records/collateral from their facility Attempted to reach [facility] at [phone] 08/11. Rang through x3 without ability to leave callback number. will reattempt in AM. Device currently precludes MRI, if confirmed as a A209 model this has a 1.5 T limitation. No information currently available about the leads. - Interrogation ordered History of conversion disorder, antisocial personality disorder Noted; completing stroke workup as above GERD Continue PPI Continue Pepcid DVT prophylaxis: Parker Thomas held pending evaluation of CVA Diet: Pending speech eval, advance to heart healthy once passes CODE STATUS: Full code Admission and Anticipated Discharge Date Admission Date: August 10, 2024 Subjective Seen at the bedside. Communication facilitated with visual board as patient does not verbalize any speech. No receptive aphasia or written/speech for expressive aphasia. No true dysarthria, patient presents with mutism but does not make any vocalizations. Denies pain, headache. Endorses that he has chronic issue with his left leg but only gets PT once a month for this at the group home. New onset of left upper extremity numbness and complete weakness. Ability to express speech is new. No vision change. No pain. Is concerned about a TIA. Pending MRI Physical Exam Physical Exam: General: A&Ox3. NAD. Cooperative. HEENT: Atraumatic, normocephalic. Pulm: CTAB A&P. -wheezes, -rales, -rhonchi. Symmetrical chest rise. No increase in work of breathing. No respiratory distress. Cardiac: RRR, -mrg. Radial pulses intact and symmetrical. Abdominal: Nontender, nondistended, soft. BS present. CRANIAL NERVES: II: Pupils equal and reactive, no relative afferent pupillary defect, no VF cuts. EOM intact, no gaze preference or deviation, no nystagmus. Normal sensation in V1, V2, and V3 segments bilaterally.: no asymmetry, no nasolabial fold flattening. On cheek puff does have some asymmetry with less air in the left cheek but is able to hold air within pursed lips. normal hearing to speech, reports diminished hearing in the left ear. normal palatal elevation, no uvular deviation midline tongue protrusion Extremity: 0/5 activation to left upper and left lower extremity strength testing. Denies sensation in left upper and left lower extremity. 5/5 strength to right chief school finance officer strength, elbow flexion/extension, shoulder flexion, hip flexion, ankle dorsiflexion/plantarflexion. On right hip flexion does have some but minimal heel drive of the left lower extremity. Results & Data Results & Data Vital Signs (Past 12 Hours) Vital Signs Temp Pulse Pulse Resp BP Pulse Ox O2 Del Method 08/11/24 10:39 36.8 C 74 18 125/84 96 Room Air 08/11/24 07:56 83 08/11/24 07:00 36.6 C 67 18 125/84 94 Room Air 08/11/24 03:28 36.6 C 65 18 113/75 95 Room Air PG Care Time/CCT Total # of Minutes Spent Total Time Spent with Patient: Total time spent is greater than 50% in coordination of care (as documented) at patient's floor/unit and/or counseling patient: Coding Level of Care Code 69241 SUB INP/OBS CARE 3/50MIN Diagnoses Stroke I63.9 Atrial fibrillation I48.91 GERD (gastroesophageal reflux disease) K21.9 Hypertension I10
[2024-08-11] MEDS: ACETAMINOPHEN 325 MG TAB PO PRN (17:15)
[2024-08-11] MEDS: TAMSULOSIN HCL 0.4 MG CAP PO SCH (19:43)
[2024-08-11] MEDS: FAMOTIDINE 20 MG TAB PO SCH (21:48)
[2024-08-11] MEDS: ATORVASTATIN 40 MG TAB PO SCH (21:48)
[2024-08-11] MEDS: METOPROLOL TARTRATE 50 MG TAB PO SCH (22:09)
--- NOTE | 2024-08-12 00:02 | XRay Report ---
Exam(s): XR CXR 1 VIEW EXAM: XR Chest, 1 View CLINICAL HISTORY: Reason for exam: confirm pacemaker placement. TECHNIQUE: Frontal view of the chest. COMPARISON: No relevant prior studies available. FINDINGS: Lungs: Unremarkable. No acute focal infiltrate or consolidation is seen. Pleural space: Unremarkable. No pneumothorax. Heart: Unremarkable. No cardiomegaly. Mediastinum: Unremarkable. Normal mediastinal contour. Bones/joints: Unremarkable. No acute fracture. Tubes, lines and devices: There is a cardiac loop recorder projecting over the left side of the heart. The cardiac silhouette is not enlarged. Upper abdomen: Bowel loops appear nondilated. No pneumoperitoneum under the diaphragm. IMPRESSION: 1. No acute focal infiltrate or consolidation is seen. 2. No pneumoperitoneum under the diaphragm. 3. There is a cardiac loop recorder projecting over the left side of the heart. The cardiac silhouette is not enlarged. Electronically signed by: Manuel Meyer MD 08/12/24 00:01 AM
--- NOTE | 2024-08-12 00:38 | CT Scan Report ---
Exam(s): CT HEAD Without Contrast EXAM: CT Head Without Intravenous Contrast CLINICAL HISTORY: Reason for exam: LUE/LLE weak. 24hr repeat 2/2 MRI incompatible. TECHNIQUE: Axial computed tomography images of the head/brain without intravenous contrast. CTDI is 38.1 mGy and DLP is 547.75 mGy-cm. Automated exposure control was utilized for the study. A dose lowering technique was utilized adhering to the principles of ALARA. COMPARISON: Prior head CT from August 10, 2024. FINDINGS: Brain: Remote ischemic injury of the left. No hemorrhage. No significant white matter disease. No edema. Ventricles: Unremarkable. No ventriculomegaly. Bones/joints: Unremarkable. No acute fracture. Soft tissues: Unremarkable. Sinuses: Unremarkable as visualized. No acute sinusitis. Mastoid air cells: Unremarkable as visualized. No mastoid effusion. IMPRESSION: No evidence for acute intracranial pathology. Electronically signed by: Gypsy Mendez MD 08/12/24 00:37 AM
[2024-08-12 07:49] LABS: Basophils # (auto) 0.05 K/uL (0.00-0.20); Basophils % (auto) 0.6 %; Eosinophils # (auto) 0.09 K/uL (0.00-0.50); Eosinophils % (auto) 1.1 %; Hematocrit (blood only) 39.6 % (42.0-52.0); Hemoglobin 13.4 g/dl (14.0-18.0); Immature Granulocytes # (auto) 0.02 K/uL (0.01-0.20); Immature Granulocytes % (auto) 0.2 %; Lymphocytes # (auto) 2.15 K/uL (1.20-3.40); Lymphocytes % (auto) 25.1 %; Mean Corpuscular Hemoglobin 30.4 pg (25.0-34.0); Mean Corpuscular Hgb Conc 33.8 g/dL (32.0-36.0); Mean Corpuscular Volume 89.8 fL (80.0-100.0); Mean Platelet Volume 12.2 fL (9.4-12.4); Monocytes # (auto) 0.79 K/uL (0.11-0.59); Monocytes % (auto) 9.2 %; Neutrophils # (auto) 5.47 K/uL (1.40-6.50); Neutrophils % (auto) 63.8 %; Platelet Count 128 K/uL (130-400); RDW Coefficient of Variation 12.6 % (11.5-14.5); RDW Standard Deviation 41.5 fL (36.4-46.3); Red Blood Count 4.41 M/uL (4.70-6.10); White Blood Count 8.57 K/ul (4.8-10.8)
[2024-08-12 08:20] LABS: Calcium 8.4 mg/dl (8.6-10.3); Creatinine Clr Calc Pharmacy 103.6 ml/min; Potassium 3.4 mmol/L (3.5-5.1)
[2024-08-12] MEDS: PANTOprazole 40 MG TAB PO SCH (09:12)
[2024-08-12] MEDS: CLOPIDOGREL BISULFATE 75 MG TAB PO SCH (09:12)
[2024-08-12] MEDS: lisinopril 20 MG TAB PO SCH (09:12)
[2024-08-12] MEDS: ENOXAPARIN INJ 40 MG/0.4 ML SYR SQ SCH (09:20)
[2024-08-12] MEDS: RIVAROXABAN 20 MG TAB PO SCH (09:33)
[2024-08-12] MEDS: POTASSIUM CHLORIDE 20 MEQ/15 ML UDC PO STA (09:34)
[2024-08-12 11:52] LABS: Appearance Urine Clear (Clear); Bacteria Urine Automated None Seen (None Seen); Bilirubin Urine Negative (Negative); Blood Urine 1+ (Negative); Cast Urine Automated 0-2 /lpf (0-2); Color Urine Yellow; Epithelial Cell Urine Auto 0-2 /hpf (0-2); Glucose Urine UA Negative (Negative); Ketones Urine Negative (Negative); Leukocyte Esterase Urine Negative (Negative); Nitrite Urine Negative (Negative); Protein Urine Negative (Negative); RBC Urine Automated 0-2 /hpf (0-2); Specific Gravity Urine 1.007 (1.000-1.030); Urobilinogen Urine Negative (Negative); WBC Urine Automated 0-5 /hpf (0-5); pH Urine 6.5 (4.5-7.5)
--- NOTE | 2024-08-12 12:02 | Electroencephalogram ---
EEG Procedure Note Date of Service August 12, 2024 Start / End Times Start Time: 10:13 AM End Time: 10:33 AM Referring Physician Calista History Strokelike symptoms, seizure-like symptoms Home Medication List Medication Instructions Recorded Confirmed Type albuterol sulfate 90 mcg/actuation 2 puff inhalation QID PRN 08/10/24 08/10/24 History aerosol inhaler Shortness Of Breath aspirin 81 mg tablet,delayed 81 mg PO DAILY 08/10/24 08/10/24 History release resjbap-atpdtqbzajyrr-chzshiog 250 2 tab PO BID PRN Headache 08/10/24 08/10/24 History mg-250 mg-65 mg tablet (Excedrin Migraine) atorvastatin 80 mg tablet 80 mg PO HS 08/10/24 08/10/24 History famotidine 20 mg tablet 20 mg PO HS 08/10/24 08/10/24 History fluticasone 500 mcg-salmeterol 50 1 inh inhalation BID 08/10/24 08/10/24 History mcg/dose blistr powdr for inhalation (Advair Diskus) lisinopril 20 mg tablet 20 mg PO DAILY 08/10/24 08/10/24 History nebivolol 20 mg tablet 20 mg PO DAILY 08/10/24 08/10/24 History nitroglycerin 0.4 mg sublingual 0.4 mg sublingual DIRECTED PRN 08/10/24 08/10/24 History tablet (Nitrostat) Chest Pain pantoprazole 40 mg tablet,delayed 40 mg PO DAILY 08/10/24 08/10/24 History release rivaroxaban 20 mg tablet (Xarelto) 20 mg PO DAILY 08/10/24 08/10/24 History vitamin E 1 applic topical DAILY 08/10/24 08/10/24 History Inpatient Medication List Acetaminophen (Acetaminophen 325 Mg Tab) 650 mg PO Q6H PRN PRN Reason: Pain/headache/fever Stop: 09/10/24 08:44 Last Admin: 08/11/24 17:15 Dose: 650 mg Documented By: DARREL Atorvastatin Calcium (Atorvastatin 40 Mg Tab) 80 mg PO [facility] Stop: 09/10/24 20:59 Last Admin: 08/11/24 21:48 Dose: 80 mg Documented By: KAE Clopidogrel Bisulfate (Clopidogrel Bisulfate 75 Mg Tab) 75 mg PO [facility] Stop: 09/11/24 08:59 Last Admin: 08/12/24 09:12 Dose: 75 mg Documented By: DTT Famotidine (Famotidine 20 Mg Tab) 20 mg PO HS MELINA Stop: 09/10/24 20:59 Last Admin: 08/11/24 21:48 Dose: 20 mg Documented By: KAE Fluticasone/Vilanterol (Fluticasone/Vilanterol 200/25mcg 14 Puffs/Inhaler) 1 puffs INH DAILY MELINA Stop: 09/10/24 08:59 Last Admin: 08/12/24 09:12 Dose: 1 puffs Documented By: Admin: 08/11/24 10:15 Dose: 1 puffs Documented By: DARREL Lisinopril (Lisinopril 20 Mg Tab) 20 mg PO DAILY MELINA Stop: 09/11/24 08:59 Last Admin: 08/12/24 09:12 Dose: 20 mg Documented By: QUIANA Metoprolol Tartrate (Metoprolol Tartrate 50 Mg Tab) 50 mg PO BID MELINA Stop: 09/10/24 20:59 Last Admin: 08/12/24 09:12 Dose: 50 mg Documented By: Admin: 08/11/24 22:09 Dose: Not Given Documented By: KAE Pantoprazole Sodium (Pantoprazole 40 Mg Tab) 40 mg PO DAILY MELINA Stop: 09/11/24 08:59 Last Admin: 08/12/24 09:12 Dose: 40 mg Documented By: QUIANA Rivaroxaban (Rivaroxaban 20 Mg Tab) 20 mg PO DAILY MELINA Stop: 09/11/24 09:14 Last Admin: 08/12/24 09:33 Dose: 20 mg Documented By: DTT Tamsulosin HCl (Tamsulosin Hcl 0.4 Mg Cap) 0.4 mg PO HS MELINA Stop: 09/10/24 18:24 Last Admin: 08/11/24 19:43 Dose: 0.4 mg Documented By: DARREL Discontinued Medications Aspirin (Aspirin Chew 324 Mg) 324 mg PO NOW STA Stop: 08/10/24 20:49 Last Admin: 08/10/24 20:58 Dose: 324 mg Documented By: PAG Aspirin (Aspirin 81 Mg Ectab) 81 mg PO DAILY MELINA Stop: 09/10/24 08:59 Last Admin: 08/11/24 10:13 Dose: Not Given Documented By: DARREL Enoxaparin Sodium (Enoxaparin Inj 40 Mg/0.4 Ml Syr) 40 mg SQ Q24H MELINA Stop: 09/11/24 08:59 Last Admin: 08/12/24 09:20 Dose: Not Given Documented By: DTT Famotidine (Pepcid 20mg Iv Push) 20 mg in 5 mls @ 2.5 mls/min IV Q12H MELINA Stop: 09/09/24 23:29 Last Admin: 08/11/24 12:14 Dose: 2.5 mls/min Documented By: K Admin: 08/11/24 00:08 Dose: 2.5 mls/min Documented By: BHARGAV Pantoprazole Sodium (Protonix) 40 mg in 10 mls @ 5 mls/min IV Q24H MELINA Stop: 09/10/24 08:59 Last Admin: 08/11/24 10:16 Dose: 5 mls/min Documented By: DARREL Lactated Ringer's (Lr) 1,000 mls @ 125 mls/hr IV .Q8H MELINA Stop: 08/11/24 06:16 Last Infusion: 08/11/24 06:38 Dose: Infused Documented By: Admin: 08/10/24 22:31 Dose: 125 mls/hr Documented By: BHARGAV Acetaminophen (Ofirmev) 1,000 mg in 100 mls @ 400 mls/hr IV NOW STA Stop: 08/11/24 10:37 Last Infusion: 08/11/24 12:27 Dose: Infused Documented By: Admin: 08/11/24 10:39 Dose: 400 mls/hr Documented By: DARREL Ioversol (Optiray 320 125ml) 115 ml IV ONCE ONE Stop: 08/10/24 20:07 Last Admin: 08/10/24 20:07 Dose: 115 ml Documented By: KAREN Methylprednisolone (Methylprednisolone 125 Mg/2 Ml Vial) Confirm Administered Dose 125 mg .ROUTE .STK-MED ONE Stop: 08/10/24 19:56 Last Admin: 08/10/24 20:00 Dose: Not Given Documented By: BASSEM Methylprednisolone (Methylprednisolone 125 Mg/2 Ml Vial) 125 mg IV NOW ONE Stop: 08/10/24 19:56 Last Admin: 08/10/24 20:00 Dose: 125 mg Documented By: BASSEM Potassium Chloride (Potassium Chloride 20 Meq/15 Ml Udc) 40 meq PO NOW STA Stop: 08/12/24 09:06 Last Admin: 08/12/24 09:34 Dose: 40 meq Documented By: DTT Description This is a 21 electrode EEG with a single channel dedicated to limited EKG. The electrodes were placed in accordance with the International 10-20 system. There is a posterior dominant rhythm of 10 Hz which is symmetrically distributed and attenuates with eye opening. There is a normal anterior to posterior organization. Photic stimulation is unremarkable. There is a symmetric frontal beta rhythm. There is excessive movement artifact throughout the study. There are several runs of left temporal polyspikes and a run of right temporal polyspikes at the end of the procedure. Interpretation Borderline abnormal awake/drowsy EEG with left greater than right temporal polyspikes in the context of excessive movement artifact and a normal background alpha rhythm. This EEG finding is inconclusive but could indicate an increased risk for focal seizures. Clinical Correlation Given the potential concern for seizures in this patient, would consider treatment with Keppra. [facility] EEG Procedure Codes Indication for Procedure (1) Stroke-like episode: (2) Seizure-like activity: Neurology Neurology: 94133 EEG include record awake & drowsy
--- NOTE | 2024-08-12 12:55 | Hospitalist Progress Note ---
Date of Service August 12, 2024 Assessment & Plan (1) Stroke: (2) Atrial fibrillation: (3) GERD (gastroesophageal reflux disease): (4) Hypertension: Plan 44-year-old male with history of atrial fibrillation on Xarelto anticoagulation, hypertension, GERD presenting with acute onset left-sided weakness occurring at 1940 this evening. Patient also with total aphasia. He reports extensive history of prior strokes and TIAs in the past. Reports compliance with his medications including his Xarelto, aspirin and atorvastatin Strokelike deficits, ?Partial Seizure ? CVA, on telestroke eval some concern for psychosomatic. - Left upper/left lower extremity symptoms suggestive of right MCA CThead/CTA angio unremarkable. No thrombolysis candidate Neurochecks per protocol - EEG with ?focal abnormalities suggestive of seizure tendancy Echo with LVSF normal, suboptimal saline injection PFO was not excluded, EF normal MRI was pending however this cannot be obtained as he has a ICD which is not MRI compatible. Reportedly was placed 3-4 years ago at [facility] in context of a heart attack. Further details are pending, records have been requested from [facility]. LDL 96, continue atorvastatin 80 mg No occlusion is seen on CTA so he is not a thrombectomy candidate, and he was not a thrombolysis candidate due to his anticoagulation. With his past history of stroke regardless of his progression on CT unless very large deficits or bleeding is seen the likely target conversion of his antiplatelet to Plavix and resume Xarelto at 72 hours. EEG suggest possible seizure tendency, Keppra 1 g IV ordered and will trial course of 500 mg twice daily 08/12 symptoms are improving. Patient still does not have activation/movement of his left arm or leg but is speaking and verbalizing although with some stammering does not have dysarthria or aphasia. COPD Continue albuterol as needed Continue Advair Hypertension Lisinopril/Nebivolol were held for 24 hours to allow permissive hypertension. Normotensive on recheck Beta-angeles and lisinopril resumed. Will substitute low-dose of metoprolol while inpatient. Mild bradycardia, will switch to 25 mg twice daily dosing Paroxysmal A-fib Continue beta-angeles Xarelto resumed - EKG sinus on admit - Remains in sinus ICD/pacemaker - Patient reports he has no history of heart failure, did have a heart attack and has a cardiac device. Per MRI this is a [employer] ICD Model No: A2 09. Patient reports this was placed at [facility] because of a heart attack. He denies any recent chest pain and denies diuretic use. No acute ischemic changes on admitting EKG and high sensitive troponin is normal. Further record clarification pending from [facility], records request has been faxed Did discuss with [facility] on 08/11. They have had a change of shift and are unable to confirm the model number, but on record review report they have no documentation over why it was placed and whether he had an ICD or pacemaker. Further records no documentation that he has had a [place], heart failure, or heart block. Does have a history of A-fib. Patient was previously transferred from [facility], can attempt to obtain additional records/collateral from their facility Attempted to reach [facility] at [phone] 08/11. Rang through x3 without ability to leave callback number. On 08/11. Attempted call at 9 AM and 1 AM on 08/12, again with no answer and no ability to leave callback Device currently precludes MRI, if confirmed as a A209 model this has a 1.5 T limitation. No information currently available about the leads. - Interrogation ordered Urinary retention Sensation intact in the right thigh. Diminished sensation in the left thigh. No back pain. Stroke eval as above. No leukocytosis. Continue Flomax, maintain Thompson, follow UA History of conversion disorder, antisocial personality disorder Noted; completing stroke and seizure workup as above GERD Continue PPI Continue Pepcid DVT prophylaxis: Xarelto resumed Diet: Heart healthy CODE STATUS: Full code Admission and Anticipated Discharge Date Admission Date: August 10, 2024 Subjective Seen at the bedside today. Is verbalizing/speaking with good fluency although intermittent stammering. Does express some distress over his symptoms. Has had difficulty peeing. Right leg strength remains unchanged, left leg strength and left arm remain unchanged. Denies fever chills or sweats. Denies abdominal pain. Denies blurry vision although notes he had some dark floaters in his vision this morning which are not present at time of bedside assessment. Did discuss Keppra for possible seizure tendency to which she is agreeable Collateral pending from [facility]. Have not been able to get through to clarify further details of his device. Per discussion with outbound sales representative this is a shock box in the event that patient has VT/V-fib, does not have pacing capabilities Physical Exam Physical Exam: General: A&Ox3. NAD. Cooperative. HEENT: Atraumatic, normocephalic. Pulm: CTAB A&P. -wheezes, -rales, -rhonchi. Symmetrical chest rise. No increase in work of breathing. No respiratory distress. Cardiac: RRR, -mrg. Radial pulses intact and symmetrical. Abdominal: Nontender, nondistended, soft. BS present. CRANIAL NERVES: II: Pupils equal and reactive, no relative afferent pupillary defect, no VF cuts. EOM intact, no gaze preference or deviation, no nystagmus. Normal sensation in V1, V2, and V3 segments bilaterally.: no asymmetry, no nasolabial fold flattening. Hearing intact. Is verbalizing today, no aphasia present. Some stammering without discrete dysarthria normal palatal elevation, no uvular deviation midline tongue protrusion Extremity: 0/5 activation to left upper and left lower extremity strength testing. Denies sensation in left upper and left lower extremity. 5/5 strength to right char filter operator helper strength, elbow flexion/extension, shoulder flexion, hip flexion, ankle dorsiflexion/plantarflexion. Results & Data Results & Data Vital Signs (Past 12 Hours) Vital Signs Temp Pulse Pulse Resp BP Pulse Ox O2 Del Method 08/12/24 10:45 36.6 C 59 L 16 126/80 96 Room Air 08/12/24 08:00 65 08/12/24 07:00 36.4 C L 61 18 115/79 96 Room Air 08/12/24 02:59 36.4 C L 64 16 108/71 94 Room Air 08/12/24 02:07 75 PG Care Time/CCT Total # of Minutes Spent Total Time Spent with Patient: Total time spent is greater than 50% in coordination of care (as documented) at patient's floor/unit and/or counseling patient: Coding Level of Care Code 67097 SUB INP/OBS CARE 3/50MIN Diagnoses Stroke I63.9 Atrial fibrillation I48.91 GERD (gastroesophageal reflux disease) K21.9 Hypertension I10
[2024-08-12] MEDS: levETIRAcetam 500 MG/5 ML VIAL IV STA (13:42)
[2024-08-12] MEDS: MAGNESIUM SULFATE / D5W 1 GM/100 ML BAG IV ONE (15:41)
[2024-08-12] MEDS: ACETAMINOPHEN 500 MG TAB PO ONE (15:44)
[2024-08-12] MEDS: KETOROLAC TROMETHAMINE 15 MG/ML VIAL IV ONE (16:01)
[2024-08-12] MEDS: METOPROLOL TARTRATE 25 MG TAB PO SCH (20:28)
[2024-08-12] MEDS: levETIRAcetam ORAL SOLN 100MG/ML PO SCH (20:59)
[2024-08-13 06:28] LABS: Basophils # (auto) 0.04 K/uL (0.00-0.20); Basophils % (auto) 0.6 %; Eosinophils # (auto) 0.28 K/uL (0.00-0.50); Eosinophils % (auto) 4.5 %; Hematocrit (blood only) 39.4 % (42.0-52.0); Hemoglobin 13.3 g/dl (14.0-18.0); Immature Granulocytes # (auto) 0.01 K/uL (0.01-0.20); Immature Granulocytes % (auto) 0.2 %; Lymphocytes # (auto) 1.79 K/uL (1.20-3.40); Lymphocytes % (auto) 28.6 %; Mean Corpuscular Hemoglobin 30.9 pg (25.0-34.0); Mean Corpuscular Hgb Conc 33.8 g/dL (32.0-36.0); Mean Corpuscular Volume 91.4 fL (80.0-100.0); Mean Platelet Volume 12.2 fL (9.4-12.4); Monocytes # (auto) 0.54 K/uL (0.11-0.59); Monocytes % (auto) 8.6 %; Neutrophils # (auto) 3.59 K/uL (1.40-6.50); Neutrophils % (auto) 57.5 %; Platelet Count 122 K/uL (130-400); RDW Coefficient of Variation 12.4 % (11.5-14.5); RDW Standard Deviation 41.3 fL (36.4-46.3); Red Blood Count 4.31 M/uL (4.70-6.10); White Blood Count 6.25 K/ul (4.8-10.8)
[2024-08-13 06:56] LABS: BUN Creatinine Ratio 19.1 (10-20); Calcium 8.4 mg/dl (8.6-10.3); Creatinine Clr Calc Pharmacy 110.9 ml/min; Potassium 3.9 mmol/L (3.5-5.1)
--- NOTE | 2024-08-13 10:29 | Neurology Consultation ---
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 He presented with acute flaccid weakness of the left upper limb and aphasia/mutism. No significant vascular lesions on CTA of the head and neck. CT of the head reveals several small chronic infarcts within the left basal ganglia and right occipital lobe. Follow-up CT of the head was negative for an obvious evolving infarct. The character of patient's speech deficit was considered a bit atypical for stroke and an EEG was completed which did reveal left greater than right temporal polyspikes. Keppra has been started. He seems to be modestly improved this morning. He does not have aphasia although his speech has a stuttering, halting quality. He continues to have a flaccid left hemiplegia (the leg is chronic, the arm is new). Although this patient may have had an acute ischemic infarct within the right cerebral hemisphere, seizures with speech arrest and a Al's paralysis affe cting the left upper limb are also possible. I do note that his CT of the head does not reveal any obvious chronic large territory infarct that would otherwise explain his left lower extremity weakness or right visual field deficit with confrontation testing. A functional neurological disorder cannot be completely excluded. We are unable to obtain an MRI as his ICD is not MRI compatible. Would recommend a repeat noncontrast CT of the head today. Continue with Keppra 500 mg twice daily. Continue with Xarelto and Plavix as ordered. Agree with Lipitor as ordered, goal LDL 70 or less. Blood pressure management per stroke protocol. Consultations with PT/OT/speech therapy. History of Present Illness Reason for Consultation: History of stroke, seizure activity? Requesting Physician: Taniya Attending Physician: Oj Monahan MD History of Present Illness The patient is a 44-year-old left handed male prisoner who presented to the emergency department August 10, 2024 with aphasia and left-sided weakness. He has a history of atrial fibrillation, on Xarelto, history of several strokes with residual flaccid weakness of the left lower limb, right visual field de ficit. He has an ICD that is not MRI compatible. An initial CT of the head was negative for hemorrhage or obvious acute process. There is a chronic infarct within the left basal ganglia. CT angiography of the head and neck are negative. A repeat CT of the head completed on August 11 was negative for obvious evolving acute or subacute infarct. I did independently review these images. There appeared to be 2 chronic lacunar infarcts within the left basal ganglia. There may be a chronic ischemic infarct within the right occipital lobe. I discussed his case with Dr. Grigsby as the patient was exhibiting mutism. An EEG was completed yesterday which revealed left greater than right temporal polyspikes potentially indicative of increased risk for seizures. I had recommended starting a trial of Keppra. This morning, the patient's speech is much improved, he does exhibit stuttering, halting type speech, he is not grossly aphasic. He exhibits a flaccid hemiplegia affecting the left arm and leg. He indicates that the left arm weakness is new. He denies any previous history of seizures. He denies headache. Allergies Allergy/AdvReac Type Severity Reaction Status Date / Time Iodinated Contrast Media Allergy Severe Anaphylaxis Verified 08/10/24 19:39 iodine Allergy Severe Anaphylaxis Verified 08/10/24 19:39 shellfish derived Allergy Severe Anaphylaxis Verified 08/11/24 07:48 aripiprazole [From Abilify] Allergy Unknown ON SCI Verified 08/10/24 19:39 [facility] MED LIST bee venom protein (honey bee) Allergy Unknown ON SCI Verified 08/10/24 19:39 [facility] MED LIST diphenhydramine Allergy Unknown ON SCI Verified 08/10/24 19:39 [From Benadryl Allergy] [facility] MED LIST Fish Containing Products Allergy Unknown ON SCI Verified 08/10/24 19:39 [facility] MED LIST latex Allergy Unknown ON SCI Verified 08/10/24 19:39 [facility] MED LIST mustard Allergy Unknown ON SCI Verified 08/10/24 19:39 [facility] MED LIST olanzapine [From Zyprexa] Allergy Unknown ON SCI Verified 08/10/24 19:39 [facility] LIST Penicillins Allergy Unknown ON SCI Verified 08/10/24 19:39 [facility] LIST Home Medications Medication Instructions Recorded Confirmed Type albuterol sulfate 90 mcg/actuation 2 puff inhalation QID PRN 08/10/24 08/10/24 History aerosol inhaler Shortness Of Breath aspirin 81 mg tablet,delayed 81 mg PO DAILY 08/10/24 08/10/24 History release epnvroc-sbgehuqtiyxhs-znqolbpb 250 2 tab PO BID PRN Headache 08/10/24 08/10/24 History mg-250 mg-65 mg tablet (Excedrin Migraine) atorvastatin 80 mg tablet 80 mg PO HS 08/10/24 08/10/24 History famotidine 20 mg tablet 20 mg PO HS 08/10/24 08/10/24 History fluticasone 500 mcg-salmeterol 50 1 inh inhalation BID 08/10/24 08/10/24 History mcg/dose blistr powdr for inhalation (Advair Diskus) lisinopril 20 mg tablet 20 mg PO DAILY 08/10/24 08/10/24 History nebivolol 20 mg tablet 20 mg PO DAILY 08/10/24 08/10/24 History nitroglycerin 0.4 mg sublingual 0.4 mg sublingual DIRECTED PRN 08/10/24 08/10/24 History tablet (Nitrostat) Chest Pain pantoprazole 40 mg tablet,delayed 40 mg PO DAILY 08/10/24 08/10/24 History release rivaroxaban 20 mg tablet (Xarelto) 20 mg PO DAILY 08/10/24 08/10/24 History vitamin E 1 applic topical DAILY 08/10/24 08/10/24 History Patient History Medical History (Updated 08/12/24 @ 12:12 by Brant Alberto MD) Stroke Hypertension GERD (gastroesophageal reflux disease) Atrial fibrillation Social History Smoking Status: Never smoker Hx Alcohol Use: No Hx Substance Use: No Preferred Language: [place] Communication Ability: Effective Superintendent Pier Required: No Beliefs That Will Affect Care: None Current Living Situation: Other Current Living Situation Comment: [facility] [facility] Feels Safe at Home: Yes Safety Concerns: Feels Safe At This Time Assistive Devices: Wheelchair Assistive Devices Comment: loop recorder Review of Systems Constitutional: no fever and no chills Eyes: + blind spots Ear, Nose, Mouth, Throat: no hearing loss Respiratory: no cough and no dyspnea Cardiovascular: no chest pain Gastrointestinal: no nausea and no vomiting Genitourinary: no dysuria Musculoskeletal: no myalgia Integumentary: no rash and no lesions Neurologic: as per Subjective / HPI, + localized weakness, + loss of sensation and + abnormal speech; no headache(s) Psychiatric: no depression and no anxiety Hematologic / Lymphatic: no easy bleeding and no easy bruising Exam (Neuro) Constitutional: well developed; no acute distress Eyes: PERRL, EOM intact bilaterally and + nystagmus; + abnormal visual field confrontation (Right visual field deficit noted) Neurologic: Oriented to:: Person, Place and Time Memory: Short Term Intact and Remote Intact Attention: Span Intact and Concentration Intact Speech Fluency: Halting and Stuttering Speech Aphasia: negative Aphasia Fund of Knowledge: Current Events, Past History and Vocabulary Cranial Nerves: Normal III, IV, , V, VII, VIII, IX, X, XI and XII; Abnorm II Motor Strength: Hemiplegia Laterality: Left Flaccidity: Arms Laterality: Left and Legs Laterality: Left Muscle Bulk/Involuntary Movements: No Involuntary Movements Sensation: negative Light Touch Intact, Pain/Temperature Intact or Proprioception Intact Coordination: Finger-Nose Abnormal Laterality: Left and Heel-Hale Abnormal Laterality: Left Deep Tendon Reflexes: Rt Triceps: 2+, Lt Triceps: 3+, Rt Biceps: 2+, Lt Biceps: 3+, Rt Brachioradialis: 2+, Lt Brachioradialis: 3+, Rt Patellar: 2+, Lt Patellar: 3+, Rt Ankle: 1+ and Lt Ankle: 2+ Special Tests: negative Babinski Present Results & Data Vital Signs (Past 12 Hours) Vital Signs Temp Pulse Pulse Resp BP Pulse Ox O2 Del Method 08/13/24 08:17 36.4 C L 73 18 105/68 96 Room Air 08/12/24 23:28 36.4 C L 61 16 116/75 97 Room Air 08/12/24 22:42 65 Laboratory Results WBC 6.25, hemoglobin 13.3, hematocrit 39.4, platelet count 122, sodium 140, potassium 3.9, BUN 18, creatinine 0.94, glucose 91, calcium 8.4, hemoglobin A1c 4.6, magnesium 2.0, AST 19, ALT 28, triglycerides 26, cholesterol 142, LDL 96, HDL 41 Diagnostic Findings Echocardiogram was negative for cardioembolic source, normal left ventricular systolic function, no regional wall motion abnormalities, mild concentric LVH, ejection fraction 60 to 65%, unable to completely exclude an intra-atrial shunt with bubble study. Electrocardiogram revealed normal sinus rhythm. Coding Level of Care Code 30902 INT INP/OBS CARE MIN Diagnoses Stroke-like episode R29.90 Seizure-like activity R56.9 Time Spent (min) 80 Comment Total time includes patient contact, chart review, counseling, note preparation
--- NOTE | 2024-08-13 12:21 | CT Scan Report ---
EXAM: CT Head Without Intravenous Contrast INDICATION: Follow-up TECHNIQUE: Axial computed tomography images of the head/brain without intravenous contrast. Sagittal and/or coronal reformats are provided. Sagittal and coronal reformatted images were created and reviewed. This CT exam was performed using one or more of the following dose reduction techniques: automated exposure control, adjustment of the mA and/or kV according to patient size, and/or use of iterative reconstruction technique. COMPARISON: 08/11/2024 FINDINGS: Limitations: None. Brain and extra-axial spaces: There is age appropriate cortical atrophy and chronic ischemic periventricular white matter hypodensity. No acute infarct, hemorrhage or mass noted. Stable old lacunar infarcts in the left pnoce radiata. Bones/joints: No acute changes. Soft tissues: No significant abnormality noted. Vasculature: There is atherosclerosis of the intracranial vertebral and carotid arteries. Sinuses: No layering fluid in the visualized portions of the paranasal sinuses. Mastoid air cells: No mastoid effusion. Orbits: No significant abnormality noted. IMPRESSION: Cerebral atrophy. No acute changes. ACT 112: N/A Electronically signed by Ashtyn Woodruff 08-13-2024 12:21 PM
--- NOTE | 2024-08-13 14:44 | Hospitalist Progress Note ---
Date of Service August 13, 2024 Assessment & Plan (1) Stroke: (2) Atrial fibrillation: (3) GERD (gastroesophageal reflux disease): (4) Hypertension: Plan 44-year-old male with history of atrial fibrillation on Xarelto anticoagulation, hypertension, GERD presenting with acute onset left-sided weakness occurring at 1940 this evening. Patient also with total aphasia. He reports extensive history of prior strokes and TIAs in the past. Reports compliance with his medications including his Xarelto, aspirin and atorvastatin Strokelike deficits, ?Partial Seizure ? CVA, on telestroke eval some concern for psychosomatic. - Left upper/left lower extremity symptoms suggestive of right MCA CThead/CTA angio unremarkable. Not a thrombolysis candidate on admission - EEG with ?focal abnormalities suggestive of seizure tendancy. Loaded with Keppra and continued twice daily Echo with LVSF normal, suboptimal saline injection PFO was not excluded, EF normal MRI was pending however this cannot be obtained as he has a ICD which is not MRI compatible. Reportedly was placed 3-4 years ago at [facility] in context of a heart attack. Further details are pending, records have been requested from [facility]. LDL 96, continue atorvastatin 80 mg Xarelto/Plavix continued CThead serial imaging ordered. Cerebral atrophy without acute findings on repeat. COPD Continue albuterol as needed Continue Advair Hypertension Lisinopril/Nebivolol were held for 24 hours to allow permissive hypertension. Normotensive on recheck Beta-angeles and lisinopril resumed. Will substitute low-dose of metoprolol while inpatient. Mild bradycardia, will switch to 25 mg twice daily dosing Paroxysmal A-fib Continue beta-angeles Xarelto resumed - EKG sinus on admit - Remains in sinus ICD/pacemaker - Patient reports he has no history of heart failure, did have a heart attack and has a cardiac device. Per MRI this is a [employer] ICD Model No: A209. Patient reports this was placed at [facility] because of a heart attack. He denies any recent chest pain and denies diuretic use. No acute ischemic changes on admitting EKG and high sensitive troponin is normal. Further record clarification pending from [facility], records request has been faxed Did discuss with [facility] on 08/11. They have had a change of shift and are unable to confirm the model number, but on record review report they have no documentation over why it was placed and whether he had an ICD or pacemaker. Further records no documentation that he has had a GA, heart failure, or heart block. Does have a history of A-fib. Patient was previously transferred from [facility], can attempt to obtain additional records/collateral from their facility Attempted to reach [facility] at [phone] 08/11. Rang through x3 without ability to leave callback number. On 08/11. Attempted call at 9 AM and 1 AM on 08/12, and again on with no answer no ability to leave callback. Does have a circular phone tree confirming [facility] facility. Per patient has limited staff on the weekends, will attempt during business hours 08/14 Device currently precludes MRI, if confirmed as a A209 model this has a 1.5 T limitation. No information currently available about the leads. Urinary retention Sensation intact in the right thigh. Diminished sensation in the left thigh. No back pain. Stroke eval as above. No leukocytosis. Continue Flomax, maintain Thompson, follow UA History of conversion disorder, antisocial personality disorder Noted; completing stroke and seizure workup as above GERD Continue PPI Continue Pepcid DVT prophylaxis: Xarelto Diet: Heart healthy CODE STATUS: Full code Admission and Anticipated Discharge Date Admission Date: August 10, 2024 Subjective Seen at bedside. Continues with some stammering speech however verbalization is improved from prior. Has not had return of any strength or sensation to his left arm. Left leg remains without strength at baseline from prior stroke. No fevers chills or sweats. Denies any worsening yesterday. Overall he feels about the same maybe a little bit better today. Multiple calls to [facility] to clarify cardiac history, have not been available over the weekend. Per patient staff is limited at that facility on the weekends, hopefully will be able to clarify her records during business hours on Wednesday Physical Exam Physical Exam: General: A&Ox3. NAD. Cooperative. HEENT: Atraumatic, normocephalic. Pulm: CTAB A&P. -wheezes, -rales, -rhonchi. Symmetrical chest rise. No increase in work of breathing. No respiratory distress. Cardiac: RRR, -mrg. Radial pulses intact and symmetrical. Abdominal: Nontender, nondistended, soft. BS present. CRANIAL NERVES: Pupils equal and reactive. Vision grossly intact. EOM intact, no gaze preference or deviation, no nystagmus. Normal sensation in V1, V2, and V3 segments bilaterally. no asymmetry, no nasolabial fold flattening. Hearing intact. Is verbalizing today, no aphasia present. Stammering quality to speech normal palatal elevation, no uvular deviation midline tongue protrusion Extremity: 0/5 activation to left upper and left lower extremity strength testing. Denies sensation in left upper and left lower extremity. 5/5 strength to right manager beauty strength, elbow flexion/extension, shoulder flexion, hip flexion, ankle dorsiflexion/plantarflexion. Results & Data Results & Data Vital Signs (Past 12 Hours) Vital Signs Temp Pulse Pulse Resp BP Pulse Ox O2 Del Method 08/13/24 10:54 36.4 C L 69 69 20 108/70 96 Room Air 08/13/24 08:17 36.4 C L 73 18 105/68 96 Room Air PG Care Time/CCT Total # of Minutes Spent Total Time Spent with Patient: Total time spent is greater than 50% in coordination of care (as documented) at patient's floor/unit and/or counseling patient: Coding Level of Care Code 51951 SUB INP/OBS CARE 3/50MIN Diagnoses Stroke I63.9 Atrial fibrillation I48.91 GERD (gastroesophageal reflux disease) K21.9 Hypertension I10
[2024-08-14 03:58] VITALS: O2SAT 95
[2024-08-14 06:54] LABS: Basophils # (auto) 0.05 K/uL (0.00-0.20); Basophils % (auto) 0.7 %; Eosinophils % (auto) 5.3 %; Hemoglobin 13.8 g/dl (14.0-18.0); Immature Granulocytes # (auto) 0.02 K/uL (0.01-0.20); Immature Granulocytes % (auto) 0.3 %; Lymphocytes # (auto) 1.91 K/uL (1.20-3.40); Lymphocytes % (auto) 25.3 %; Mean Corpuscular Hemoglobin 30.8 pg (25.0-34.0); Mean Corpuscular Hgb Conc 33.7 g/dL (32.0-36.0); Mean Corpuscular Volume 91.5 fL (80.0-100.0); Mean Platelet Volume 11.9 fL (9.4-12.4); Monocytes # (auto) 0.66 K/uL (0.11-0.59); Monocytes % (auto) 8.8 %; Neutrophils % (auto) 59.6 %; Platelet Count 132 K/uL (130-400); RDW Coefficient of Variation 12.3 % (11.5-14.5); RDW Standard Deviation 41.1 fL (36.4-46.3); Red Blood Count 4.48 M/uL (4.70-6.10); White Blood Count 7.54 K/ul (4.8-10.8)
[2024-08-14 07:14] LABS: BUN Creatinine Ratio 15.8 (10-20); Calcium 8.6 mg/dl (8.6-10.3); Creatinine Clr Calc Pharmacy 103.4 ml/min; Potassium 3.9 mmol/L (3.5-5.1)
--- NOTE | 2024-08-14 07:56 | Pharmacy Report ---
- Date of Service August 14, 2024 - Pharmacy CVA/TIA Medication Review Medications to Prevent Stroke handout has been added to the patients discharge packet. Antiplatelet(s) * aspirin 81mg PO daily * clopidogrel 75mg PO daily Cholesterol * High intensity statin: atorvastatin 80 mg daily DVT Prophylaxis * SCD knee Therapeutic Anticoagulation * Hx Afib/Aflutter noted, and patient is currently receiving Xarelto 20mg PO alessandro ly Type 2 Diabetes * Patient does not have T2DM, A1c excellent at 4.6%
[2024-08-14 08:04] VITALS: RESP 18
--- NOTE | 2024-08-14 10:19 | Discharge Summary ---
Discharge Summary Date of Service August 14, 2024 Principal Dx & Hospital Course #1 = Principal Diagnosis (1) Stroke: (2) Atrial fibrillation: (3) GERD (gastroesophageal reflux disease): (4) Hypertension: Plan 44-year-old male with history of atrial fibrillation on Xarelto anticoagulation, hypertension, GERD presenting with acute onset left-sided weakness occurring at 1940 this evening. Patient also with total aphasia. He reports extensive history of prior strokes and TIAs in the past. Reports compliance with his medications including his Xarelto, aspirin and atorvastatin To do as outpatient: Continue Plavix 75 mg daily, Xarelto 20 mg daily Continue Keppra 500 mg p.o. twice daily Outpatient follow-up with neurology in approximately 3 weeks - Continue FLomax. No evidence of recurrent urinary retention on d/c, PVR <5cc with 600cc output. Strokelike deficits, ?Partial Seizure ? CVA, on telestroke eval some concern for psychosomatic. - Left upper/left lower extremity symptoms suggestive of right MCA CThead/CTA angio unremarkable. Not a thrombolysis candidate on admission - EEG with ?focal abnormalities suggestive of seizure tendancy. Loaded with Keppra and continued twice daily Echo with LVSF normal, suboptimal saline injection PFO was not excluded, EF normal MRI was pending however this cannot be obtained as he has a ICD which is not MRI compatible. Reportedly was placed 3-4 years ago at [facility] in context of a heart attack. Further details are pending, records have been requested from [facility]. LDL 96, continue atorvastatin 80 mg Xarelto/Plavix continued CThead serial imaging ordered. Cerebral atrophy without acute findings on repeat. COPD Continue albuterol as needed Continue Advair Hypertension Lisinopril/Nebivolol were held for 24 hours to allow permissive hypertension. Normotensive on recheck Beta-angeles and lisinopril resumed. Will substitute low-dose of metoprolol while inpatient. Mild bradycardia, will switch to 25 mg twice daily dosing Paroxysmal A-fib Continue beta-angeles Xarelto resumed - EKG sinus on admit - Remains in sinus ICD/pacemaker - Patient reports he has no history of heart failure, did have a heart attack and has a cardiac device. Per MRI this is a [employer] ICD Model No: A209. Patient reports this was placed at [facility] because of a heart attack. He denies any recent chest pain and denies diuretic use. No acute ischemic changes on admitting EKG and high sensitive troponin is normal. Further record clarification pending from [facility], records request has been faxed Did discuss with [facility] on 08/11. They have had a change of shift and are unable to confirm the model number, but on record review report they have no documentation over why it was placed and whether he had an ICD or pacemaker. Further records no documentation that he has had a ND, heart failure, or heart block. Does have a history of A-fib. Patient was previously transferred from [facility], can attempt to obtain additional records/collateral from their facility Attempted to reach [facility] at [phone] 08/11. Rang through x3 without ability to leave callback number. On 08/11. Attempted call at 9 AM and 1 AM on 08/12, and again on with no answer no ability to leave callback. Does have a circular phone tree confirming [facility] facility. Per patient has limited staff on the weekends, will attempt during business hours 08/14 Device currently precludes MRI, if confirmed as a A209 model this has a 1.5 T limitation. No information currently available about the leads. Urinary retention Sensation intact in the right thigh. Diminished sensation in the left thigh. No back pain. Stroke eval as above. No leukocytosis. Continue Flomax. Following flowmax pt had jones removed and underwent voiding trial. Was able to void 600+cc with <5cc on post-void residual. No evidence of ongoing retention GERD Continue PPI Continue Pepcid DVT prophylaxis: Xarelto Diet: Heart healthy CODE STATUS: Full code Admission HPI Per Admitting Provider Anibal Nickerson Is a 44-year-old male with history of atrial fibrillation on Xarelto anticoagulation, reports 5 prior strokes as well as 40 prior TIAs in the past with residual weakness of left lower extremity. Patient is wheelchair- bound at baseline. He reports compliance with his medications. This evening August 10 around 1739 patient developed acute left-sided deficits, flaccid paralysis of left upper extremity as well as left lower extremity and complete aphasia. Patient presented as a code stroke. Angiograms initially delayed slightly due to reported anaphylactic reaction to IV dye. This was confirmed with the pres ent and patient was indeed able to receive IV dye. He is complaining of slight right-sided headache as well as black dots in his vision coming and going. Otherwise denies fever, chills, chest pain, palpitations, shortness of breath, abdominal pain, nausea, vomiting, diarrhea. Reports he is eating well. Bowels are moving without difficulty. He reports being in his usual state of health prior to this episode Of note, patient aphasic therefore provided history with use of pointing to communication board Discharge Exam General: A&Ox3. NAD. Cooperative. HEENT: Atraumatic, normocephalic. Pulm: CTAB A&P. -wheezes, -rales, -rhonchi. Symmetrical chest rise. No increase in work of breathing. No respiratory distress. Cardiac: RRR, -mrg. Radial pulses intact and symmetrical. Abdominal: Nontender, nondistended, soft. BS present. CRANIAL NERVES: Pupils equal and reactive. Vision grossly intact. EOM intact, no gaze preference or deviation, no nystagmus. Normal sensation in V1, V2, and V3 segments bilaterally. no asymmetry, no nasolabial fold flattening. Hearing intact. Is verbalizing today, no aphasia present. Stammering quality to speech normal palatal elevation, no uvular deviation midline tongue protrusion Extremity: 0/5 activation to left upper and left lower extremity strength testing. Does endorse some intact sensation to soft touch in left fingertips and hand, left foot. 5/5 strength to right master glazier strength, elbow flexion/extension, shoulder flexion, hip flexion, ankle dorsiflexion/plantarflexion. Discharge Plan Discharge Items [facility] Disposition[facility] Reason For Visit: TIA VS CVA Discharge Diagnosis: ? TIA/CVA versus seizure-like activity Activity: Resume your previous activity Non-emergency contact: Primary Care Provider Call non-emergency contact if: you have any medication questions, your symptoms worsen, your pain is not controlled and your pain is worsening Follow-up/Referrals: Jimy YO [Primary Care Provider] - Diet: Heart Healthy Addtl Attending Provider Instructions: You were seen in the hospital for difficulty speaking, left upper extremity, left lower extremity weakness and numbness. You had some return of sensation to your upper and lower extremity at time of discharge. Your ability to speak returned by time of discharge although did have a slightly stammering quality your language comprehension and expression were intact. An MRI was not able to be obtained due to the history of a cardiac defibrillator. [address] scans were performed these did not show evidence of acute stroke. Your symptoms which included speech, vocal deficits, and extremity deficits were suggestive of a central cause rather than a cervical/lower spinal cause. Although your CT scans were normal a stroke cannot be definitively ruled out without MRI, your aspirin was switched to Plavix. Please continue taking Plavix and Xarelto as noted below on discharge. Your case was reviewed by neurology. You also underwent an EEG. There was some concern for tendency toward seizure activity for which you were started on an antiseizure agent called Keppra. Please continue taking Keppra 500 mg by mouth twice daily. A neurology follow-up in approximately 3 weeks is being scheduled for you. He had a history of heart attacks. Multiple calls were made to [facility] and a records request was sent to [facility] where he reported your heart attack/cardiac care had been performed. Records were not available during your admission, these are pending forwarding to both our facility and [facility]. You had an echocardiogram performed which did not show acute concerning abnormalities and he did not have signs of heart attack/ischemia during admission. You experienced urinary retention for which a Jones was placed during admission. You were started on Flomax. You underwent a voiding trial after Jones was removed. You were able to pee ~600cc and had <10ccs of urine left in the bladder. You showed no signs of ongoing urinary retention at discharge. Please continue flomax 0.4mg daily. If you develop any new or worsening symptoms including fever, chills, sweats, chest pain, chest pressure, difficulty breathing, uncontrolled nausea/vomiting, rash, wheezing, passing out or nearly passing out, bleeding, black/bloody bowel movements, or other new or concerning symptoms please call your primary care physician, or call 911 for re-evaluation in the emergency department if you are very concerned. Pending Studies at Discharge: No Stand-Alone Forms: [employer], Medications to Prevent Stroke Skilled Items Patient informed of condition?: Yes Discharge Level of Care: Other Communicable Disease: No Discharge Prognosis: Stable Lines: None Urinary Catheter: No Medications and DC Order Prescriptions: New clopidogrel 75 mg Tablet 75 mg PO QAM Qty: 30 0RF tamsulosin 0.4 mg Capsule 0.4 mg PO HS Qty: 30 0RF levetiracetam [Keppra] 500 mg tablet 500 mg PO BID 30 Days Qty: 60 0RF Continued atorvastatin 80 mg Tablet 80 mg PO HS lisinopril 20 mg Tablet 20 mg PO DAILY famotidine 20 mg Tablet 20 mg PO HS vitamin E Cream 1 applic TOPICAL DAILY pantoprazole 40 mg Tablet,Delayed Release (Dr/Ec) 40 mg PO DAILY fluticasone propion-salmeterol [Advair Diskus] 500-50 mcg/dose Blister With Device 1 inh INHALATION BID nitroglycerin [Nitrostat] 0.4 mg Tablet, Sublingual 0.4 mg sublingual DIRECTED PRN (Reason: Chest Pain) albuterol sulfate [Proventil HFA] 90 mcg/actuation Hfa Aerosol Inhaler 2 puff INHALATION QID PRN (Reason: Shortness Of Breath) Excedrin Migraine 250-250-65 mg Tablet 2 tab PO BID PRN (Reason: Headache) nebivolol 20 mg Tablet 20 mg PO DAILY Xarelto 20 mg Tablet 20 mg PO DAILY Rx Instructions: must administer with evening meal Discontinued aspirin 81 mg Tablet,Delayed Release (Dr/Ec) 81 mg PO DAILY Discharge Orders: Discharge Order (Routine); Ordered 08/14/24 Ordered By: Oj Monahan Admission Data Admit Date/Time: 08/10/24 21:19 Attending Provider: Oj Monahan Admit Provider: Nadine Meyer Primary Care Provider: Jimy YO Other Providers: Nadine Meyer; Brant Alberto Hospital Stay Data Consultations 08/10/24 20:48 ED Decision to Admit Stat 08/12/24 12:49 Consult Neurology Routine Diagnostic Imagining Performed 08/10/24 19:20 CT head/brain wo con Stat 08/10/24 19:55 CTA head w con [CT angio head w con] Stat CTA neck with con [CT angio neck with con] Stat 08/11/24 19:30 CT head/brain wo con Routine 08/13/24 11:27 CT head/brain wo con Urgent Discharge Instructions Given to Patient (Per Discharging Provider) You were seen in the hospital for difficulty speaking, left upper extremity, left lower extremity weakness and numbness. You had some return of sensation to your upper and lower extremity at time of discharge. Your ability to speak returned by time of discharge although did have a slightly stammering quality your language comprehension and expression were intact. An MRI was not able to be obtained due to the history of a cardiac defibrillator. [address] scans were performed these did not show evidence of acute stroke. Your symptoms which included speech, vocal deficits, and extremity deficits were suggestive of a central cause rather than a cervical/lower spinal cause. Although your CT scans were normal a stroke cannot be definitively ruled out without MRI, your aspirin was switched to Plavix. Please continue taking Plavix and Xarelto as noted below on discharge. Your case was reviewed by neurology. You also underwent an EEG. There was some concern for tendency toward seizure activity for which you were started on an antiseizure agent called Keppra. Please continue taking Keppra 500 mg by mouth twice daily. A neurology follow-up in approximately 3 weeks is being scheduled for you. He had a history of heart attacks. Multiple calls were made to [facility] and a records request was sent to [facility] where he reported your heart attack/cardiac care had been performed. Records were not available during your admission, these are pending forwarding to both our facility and [facility]. You had an echocardiogram performed which did not show acute concerning abnormalities and he did not have signs of heart attack/ischemia during admission. You experienced urinary retention for which a Jones was placed during admission. You were started on Flomax. You underwent a voiding trial after Jones was removed. You were able to pee ~600cc and had <10ccs of urine left in the bladder. You showed no signs of ongoing urinary retention at discharge. Please continue flomax 0.4mg daily. If you develop any new or worsening symptoms including fever, chills, sweats, chest pain, chest pressure, difficulty breathing, uncontrolled nausea/vomiting, rash, wheezing, passing out or nearly passing out, bleeding, black/bloody bowel movements, or other new or concerning symptoms please call your primary care physician, or call 911 for re-evaluation in the emergency department if you are very concerned. Total Time Total Time Spent Total Time Spent (In Minutes): 55 Coding Level of Care Code 39729 INP/OBS DISCH >30 MIN Diagnoses Stroke I63.9 Atrial fibrillation I48.91 GERD (gastroesophageal reflux disease) K21.9 Hypertension I10
[2024-08-14 11:21] VITALS: TEMP 97.9
[2024-08-14 14:08] VITALS: BP 176/74; PULSE 69
== END 2024-08-14 15:56 | DRG 65 ==
LOC: SUATTDRO → ED 19:11 → 2S 21:19 → SUATTDRO 21:19 → 2S 22:07

== ENCOUNTER 2025-01-22 21:42 | Observation (INO) ==
[2025-01-22] MEDS: diphenhydrAMINE 50 MG/ML VIAL IV STA (22:06)
[2025-01-22 22:07] LABS: Hematocrit (blood only) 42.0 % (42.0-52.0); Hemoglobin 14.6 g/dl (14.0-18.0); Immature Granulocytes # (auto) 0.01 K/uL (0.01-0.20); Immature Granulocytes % (auto) 0.1 %; Mean Corpuscular Hemoglobin 30.9 pg (25.0-34.0); Mean Corpuscular Volume 88.8 fL (80.0-100.0); Platelet Count 152 K/uL (130-400); RDW Standard Deviation 41.3 fL (36.4-46.3); Red Blood Count 4.73 M/uL (4.70-6.10); White Blood Count 7.34 K/ul (4.8-10.8)
[2025-01-22] MEDS: OPTIRAY 320 125ml IV ONE (22:16)
[2025-01-22 22:25] LABS: Alanine Aminotransferase 16 U/L (7-52); Albumin Globulin Ratio 1.4 (0.9-2); Albumin Level 4.0 gm/dl (3.4-5.0); Alkaline Phosphatase 75 U/L (34-104); Anion Gap 5 (3-11); Bilirubin,Total 0.8 mg/dl (0.2-1.0); Blood Urea Nitrogen 13 mg/dl (6-23); Calcium 9.4 mg/dl (8.6-10.3); Carbon Dioxide 30 mmol/L (21-32); Chloride 105 mmol/L (98-107); Globulin 2.9 gm/dl (2.5-4.0); Glucose 127 mg/dl (70-99(Fasting)); Magnesium 2.2 mg/dl (1.7-2.4); Potassium 3.6 mmol/L (3.5-5.1); Sodium 140 mmol/L (136-145); Total Protein 6.9 gm/dl (6.0-8.3)
[2025-01-22 22:34] LABS: INR 1.1 (0.9-1.1); Partial Thromboplastin Time 28 Seconds (21-31); Prothrombin Time 11.7 Seconds (9.0-12.0)
--- NOTE | 2025-01-22 23:01 | CT Scan Report ---
Exam(s): CT HEAD Without Contrast EXAM: CT Head Without Intravenous Contrast CLINICAL HISTORY: neuro deficit, acute stroke suspected. TECHNIQUE: Axial computed tomography images of the head/brain without intravenous contrast. CTDI is 37 mGy and DLP is 546 mGy-cm. Automated exposure control was utilized for the study. A dose lowering technique was utilized adhering to the principles of ALARA. COMPARISON: CT head without contrast performed 11/06/2024 FINDINGS: Limitations: There is motion artifact, which degrades image quality on multiple image slices. Brain: No intracranial hemorrhage. No significant mass effect. No evidence for cortical infarct. No significant white matter disease. Ventricles: Unremarkable. No ventriculomegaly. Bones/joints: Unremarkable. No acute fracture. Soft tissues: No significant overlying soft tissue traumatic injury identified. No radiopaque foreign body or subcutaneous emphysema. Sinuses: Unremarkable as visualized. No acute sinusitis. Mastoid air cells: Unremarkable as visualized. No mastoid effusion. IMPRESSION: No acute intracranial process identified. Electronically signed by: Bradley Coleman MD 01/22/25 23:00 PM
--- NOTE | 2025-01-22 23:05 | CT Scan Report ---
Exam(s): CTA NECK With Contrast IV Amt: 115cc opti 320 EXAM: CT Angiography Neck With Intravenous Contrast CLINICAL HISTORY: neuro deficit, acute stroke suspected. TECHNIQUE: Routine carotid CT angiography protocol was performed with intravenous contrast. NASCET criteria using the distal ICAs for comparison were used for evaluation of stenoses. CTDI is 13 mGy and DLP is 520 mGy-cm. Automated exposure control was utilized for the study. A dose lowering technique was utilized adhering to the principles of ALARA. MIP reconstructed images were created and reviewed. CONTRAST: Patient received 115cc opti 320 of IV contrast COMPARISON: None. FINDINGS: VASCULATURE: Right common carotid artery: Unremarkable. No occlusion or significant stenosis. No dissection. Right internal carotid artery: Predominantly noncalcified atheromatous changes involving the proximal right internal carotid artery, extending to the carotid bifurcation without narrowing by NASCET criteria. The mid to distal internal carotid artery is patent. No dissection. Right external carotid artery: Unremarkable. No occlusion. Right vertebral artery: The right vertebral artery is small in caliber but is widely patent without stenosis or occlusion. Left common carotid artery: Unremarkable. No occlusion or significant stenosis. No dissection. Left internal carotid artery: Partially calcified atheromatous changes noted involving the proximal left internal carotid artery, extending to the carotid bifurcation without significant stenosis by NASCET criteria. The mid to distal internal carotid artery is patent. No dissection. Left external carotid artery: Unremarkable. No occlusion. Left vertebral artery: The left vertebral artery is dominant and is widely patent. No occlusion or significant stenosis. No dissection. Aorta: The aortic arch is patent. No dissection or aneurysm. NECK: Bones/joints: Unremarkable. No acute fracture. Soft tissues: Unremarkable. Thyroid: There is a hypoattenuating nodule involving the lateral aspect of the right thyroid gland measuring 8 mm. ACR White Paper guidelines (Héctor RICE, et al. JACR 2015;12(2):143-50) suggest no follow-up is necessary. Lung apices: Clear. CAROTID STENOSIS REFERENCE USING NASCET CRITERIA: % ICA stenosis = (1 - narrowest ICA diameter/diameter of distal cervical ICA) x 100. Mild - <50% stenosis. Moderate - 50-69% stenosis. Severe - 70-94% stenosis. Near occlusion - 95-99% stenosis. Occluded - 100% stenosis. IMPRESSION: 1. Atheromatous changes involving both carotid bifurcations without significant stenosis by NASCET criteria. The internal and common carotid arteries are otherwise patent. 2. The vertebral arteries are patent bilaterally with the left vertebral artery dominant in size. Electronically signed by: Bradley Coleman MD 01/22/25 23:04 PM
--- NOTE | 2025-01-22 23:08 | CT Scan Report ---
Exam(s): CTA HEAD With Contrast IV Amt: 115cc opti 320 EXAM: CT Angiography Head With Intravenous Contrast CLINICAL HISTORY: neuro deficit, acute stroke suspected. TECHNIQUE: Axial computed tomographic angiography images of the head with intravenous contrast. CTDI is 19 mGy and DLP is 521 mGy-cm. Automated exposure control was utilized for the study. A dose lowering technique was utilized adhering to the principles of ALARA. MIP reconstructed images were created and reviewed. CONTRAST: Patient received 115cc opti 320 of IV contrast COMPARISON: No relevant prior studies available. FINDINGS: Right internal carotid artery: No acute findings. Atherosclerotic calcification involving the cavernous segment. Intracranial segment is patent with no significant stenosis. No aneurysm. Right anterior cerebral artery: Unremarkable. No occlusion or significant stenosis. No aneurysm. Right middle cerebral artery: Unremarkable. No occlusion or significant stenosis. No aneurysm. Right posterior cerebral artery: Unremarkable. No occlusion or significant stenosis. No aneurysm. Right vertebral artery: Moderate disease involving the small-caliber distal right vertebral artery. No occlusion. Left internal carotid artery: No acute findings. Atherosclerotic calcification involving the cavernous segment. Intracranial segment is patent with no significant stenosis. No aneurysm. Left anterior cerebral artery: Unremarkable. No occlusion or significant stenosis. No aneurysm. Left middle cerebral artery: Unremarkable. No occlusion or significant stenosis. No aneurysm. Left posterior cerebral artery: Unremarkable. No occlusion or significant stenosis. No aneurysm. Left vertebral artery: Atherosclerotic disease involving the left vertebral artery which is dominant. No significant stenosis or occlusion. Basilar artery: Unremarkable. No occlusion or significant stenosis. No aneurysm. Brain: No abnormal parenchymal enhancement identified. IMPRESSION: Atherosclerotic changes. No significant stenosis or occlusion. Negative intracranial CTA examination. Electronically signed by: Bradley Coleman MD 01/22/25 23:07 PM
--- NOTE | 2025-01-23 00:03 | XRay Report ---
Exam(s): XR CXR 1 VIEW EXAM: XR Chest, 1 View CLINICAL HISTORY: stroke. TECHNIQUE: Frontal view of the chest. COMPARISON: Portable chest single view 11/06/2024 FINDINGS: Lungs: Unremarkable. No consolidation. The pulmonary vasculature demonstrates no significant radiographic abnormality. Pleural space: Unremarkable. No pneumothorax. No large pleural effusion. Heart: The cardiac silhouette is within normal limits, accounting for portable technique. Mediastinum: No significant abnormality identified. The trachea is midline. Bones/joints: Unremarkable. No acute fracture. Tubes, lines and devices: An implanted loop cardiac monitoring device overlies the left heart border, stable. IMPRESSION: No focal consolidation or acute cardiopulmonary process identified. Electronically signed by: Bradley Coleman MD 01/23/25 00:02 AM
--- NOTE | 2025-01-23 00:59 | History & Physical Report ---
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 He reports that he got up to go to the bathroom, and fell to the ground, hitting his head. The skilled nursing staff states that his speech was slurred, there was no changes left lower extremity), febrile, he had new left sided upper extremity hemiparesis. His presentation very similar to previous admissions from 08/10-, and was seen in the emergency department on 11/06/2024 for the same symptoms, a stroke alert workup performed, and then was discharged back to the skilled nursing. During admission from 08/10-08/14/2024, the patient was started on Keppra due to an abnormal EEG. This evening, CT scan of head was negative, CTA head was negative, and CTA neck showed stable bilateral carotid bifurcation mild atheromatous changes that were not considered clinically significant. The patient was referred to the [place] [facility] service for further evaluation and treatment. Of note, the patient is not able to get an MRI, due to presence of a non- MRI compatible ICD. Strokelike symptoms- Patient had an unwitnessed episode at [facility] ([place] found on the floor there, that he reports having fallen and hit his head. He has chronic left lower extremity weakness. It is 2 episodes from 08/10-, and 11/06/2024, he presented with similar symptoms of new left upper extremity weakness, and difficulty with speech/aphasia/slurred speech. CT scan head was negative for acute change, CTA head was negative, CTA of neck showed clinically not significant bilateral carotid bifurcation atheromatous changes. Question of conversion disorder and brought up at previous admission Patient will be placed on stroke without thrombolytic order set, however, symptoms are more consistent with his previous admissions. Patient nods his head that he is able to swallow, and will therefore place him on usual oral medications in the a.m. As noted, I cannot order an MRI due to the patient's ICD being noncompatible Seizure-like activity- Patient had abnormal EEG during admission from 08/10-, and was placed on Keppra that time. Continue Keppra 500 mg p.o. twice daily Order EEG Consult neurology to see if dosing of Keppra needs to be adjusted Atrial fibrillation/hypertension/chronic anticoagulation with Xarelto- Continue Nebivolol, Xarelto, lisinopril, and aspirin The patient will be admitted to telemetry for serial cardiac enzymes, serial EKG's, cardiac rhythm monitoring and a 2-D echocardiogram with Dopplers. Last echo on with ejection fraction 60-65% Hyperlipidemia- Continue atorvastatin Asthma- Continue Advair discus or equivalent, albuterol sulfate HFA 2 puffs 4 times daily as needed GERD- Continue pantoprazole and famotidine BPH- Continue tamsulosin History of Present Illness Chief Complaint: The patient brought to the emergency department via EMS after being found on the floor at [facility] following an unwitnessed fall. He reports that he got up to go to the bathroom, and fell to the ground, hitting his head. The skilled nursing staff states that his speech was slurred, there was no changes left lower extremity), febrile, he had new left sided upper extremity hemiparesis. His presentation very similar to previous admissions from 08/10-, and was seen in the emergency department on 11/06/2024 for the same symptoms, a stroke alert workup performed, and then was discharged back to the skilled nursing. During admission from 08/10-08/14/2024, the patient was started on Keppra due to an abnormal EEG. This evening, CT scan of head was negative, CTA head was negative, and CTA neck showed stable bilateral carotid bifurcation mild atheromatous changes that were not considered clinically significant. 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 He reports that he got up to go to the bathroom, and fell to the ground, hitting his head. The skilled nursing staff states that his speech was slurred, there was no changes left lower extremity), febrile, he had new left sided upper extremity hemiparesis. His presentation very similar to previous admissions from 08/10-, and was seen in the emergency department on 11/06/2024 for the same symptoms, a stroke alert workup performed, and then was discharged back to the skilled nursing. During admission from 08/10-08/14/2024, the patient was started on Keppra due to an abnormal EEG. This evening, CT scan of head was negative, CTA head was negative, and CTA neck showed stable bilateral carotid bifurcation mild atheromatous changes that were not considered clinically significant. Allergies Allergy/AdvReac Type Severity Reaction Status Date / Time Iodinated Contrast Media Allergy Severe SCI RECORD Verified 01/22/25 23:06 iodine Allergy Severe Anaphylaxis Verified 01/22/25 23:06 shellfish derived Allergy Severe Anaphylaxis Verified 01/22/25 23:06 aripiprazole [From Abilify] Allergy Unknown ON SCI Verified 01/22/25 23:06 [facility] MED LIST bee venom protein (honey bee) Allergy Unknown ON SCI Verified 01/22/25 23:06 [facility] MED LIST diphenhydramine Allergy Unknown ON SCI Verified 01/22/25 23:06 [From Benadryl Allergy] [facility] LIST Fish Containing Products Allergy Unknown ON SCI Verified 01/22/25 23:06 [facility] LIST latex Allergy Unknown ON SCI Verified 01/22/25 23:06 [facility] LIST mustard Allergy Unknown ON SCI Verified 01/22/25 23:06 [facility] LIST olanzapine [From Zyprexa] Allergy Unknown ON SCI Verified 01/22/25 23:06 [facility] LIST Penicillins Allergy Unknown ON SCI Verified 01/22/25 23:06 [facility] LIST GRAVY Allergy Unknown ON SCI Uncoded 01/22/25 23:06 [facility] MED LIST Home Medications Medication Instructions Recorded Confirmed Type albuterol sulfate 90 mcg/actuation 2 puff inhalation QID PRN 08/10/24 01/22/25 History aerosol inhaler Shortness Of Breath atorvastatin 80 mg tablet 80 mg PO HS 08/10/24 01/22/25 History famotidine 20 mg tablet 20 mg PO HS 08/10/24 01/22/25 History fluticasone 500 mcg-salmeterol 50 1 inh inhalation BID 08/10/24 01/22/25 History mcg/dose blistr powdr for inhalation (Advair Diskus) nebivolol 20 mg tablet 20 mg PO DAILY 08/10/24 01/22/25 History nitroglycerin 0.4 mg sublingual 0.4 mg sublingual .Q 5 MINUTES X3 08/10/24 01/22/25 History tablet (Nitrostat) PRN Chest Pain pantoprazole 40 mg tablet,delayed 40 mg PO DAILY 08/10/24 01/22/25 History release rivaroxaban 20 mg tablet (Xarelto) 20 mg PO DAILY 08/10/24 01/22/25 History tamsulosin 0.4 mg capsule 0.4 mg PO HS #30 caps 08/14/24 01/22/25 Rx aspirin 81 mg tablet,delayed 81 mg PO DAILY 11/06/24 01/22/25 History release levetiracetam 500 mg tablet 500 mg PO BID 11/06/24 01/22/25 History (Keppra) lisinopril 30 mg tablet 30 mg PO DAILY 01/22/25 01/22/25 History Past Med/Surg History Problem List (Updated 01/23/25 @ 05:57 by Arpit Kitchen MD) Stroke-like symptoms (Acute) Medical History (Updated 01/23/25 @ 05:57 by Arpit Kitchen MD) Hemiparesis affecting left side as late effect of stroke Asthma Hyperlipidemia BPH (benign prostatic hyperplasia) Seizure-like activity Stroke-like episode Stroke Hypertension GERD (gastroesophageal reflux disease) Atrial fibrillation Social History Smoking Status: Never smoker Hx Alcohol Use: No Hx Substance Use: No Preferred Language: [place] Communication Ability: Effective Guyline Operator Required: No Beliefs That Will Affect Care: None Current Living Situation: Other Current Living Situation Comment: [facility] [facility] Feels Safe at Home: Yes Assistive Devices: Wheelchair Review of Systems Review of Systems: The patient is not able to contribute significantly to his HPI or review of systems due to aphasia. Physical Exam Physical Exam: The patient is awake, alert, well developed and well nourished, normocephalic and atraumatic, lying in bed and in no acute distress. HEENT--PERRL, EOMI, mucous membranes and oropharynx dry. Neck--supple. No JVD. No bruits. Thyroid normal, trachea midline, no adenopathy. Heart--normal S1 and S2. No murmurs, rubs or gallops. Lungs--clear bilaterally, no respiratory distress, no accessory muscle use. Abdomen--normal bowel sounds and soft. Nontender. Nondistended, no hernias or masses, no organomegaly. Extremities--no cyanosis or clubbing. No edema. There are good distal pulses b/l. Dermatologic--normal skin turgor, normal color, no abnormal lymph nodes, no rash. Neurologic--cranial nerves 2 through 12 grossly intact. Patient unable to speak, he does attempt to mouth words. Left upper and lower extremities strength 0/5. Right side normal. Rheumatologic--normal range of motion on the right side Psychiatric--cooperative. Results & Data Results & Data Vital Signs (Past 12 Hours) Vital Signs Temp Pulse Pulse Resp BP BP Pulse Ox 01/23/25 00:31 70 22 133/109 H 96 01/23/25 00:02 20 149/105 H 96 01/22/25 23:30 64 137/92 95 01/22/25 23:00 66 23 137/90 98 01/22/25 22:46 68 21 150/98 H 96 01/22/25 22:00 69 23 149/111 H 95 01/22/25 21:59 87 01/22/25 21:45 37.4 C 79 12 169/123 H 95 O2 Del Method 01/23/25 00:31 Room Air 01/23/25 00:02 Room Air 01/22/25 23:30 Room Air 01/22/25 23:00 Room Air 01/22/25 22:46 Room Air 01/22/25 22:00 Room Air 01/22/25 21:59 01/22/25 21:45 Room Air Laboratory Results Laboratory Results WBC 7.34 K/ul (4.8-10.8) 01/22/25 21:45 RBC 4.73 M/uL (4.70-6.10) 01/22/25 21:45 Hgb 14.6 g/dl (14.0-18.0) 01/22/25 21:45 Hct 42.0 % (42.0-52.0) 01/22/25 21:45 MCV 88.8 fL (80.0-100.0) 01/22/25 21:45 MCH 30.9 pg (25.0-34.0) 01/22/25 21:45 MCHC 34.8 g/dL (32.0-36.0) 01/22/25 21:45 RDW Std Deviation 41.3 fL (36.4-46.3) 01/22/25 21:45 RDW Coeff of Margareth 12.8 % (11.5-14.5) 01/22/25 21:45 Plt Count 152 K/uL (130-400) 01/22/25 21:45 MPV 12.0 fL (9.4-12.4) 01/22/25 21:45 Immature Gran % (Auto) 0.1 % 01/22/25 21:45 Neut % (Auto) 66.4 % 01/22/25 21:45 Lymph % (Auto) 20.7 % 01/22/25 21:45 Garrett % (Auto) 8.9 % 01/22/25 21:45 Eos % (Auto) 3.1 % 01/22/25 21:45 Baso % (Auto) 0.8 % 01/22/25 21:45 Neut # (Auto) 4.87 K/uL (1.40-6.50) 01/22/25 21:45 Lymph # (Auto) 1.52 K/uL (1.20-3.40) 01/22/25 21:45 Garrett # (Auto) 0.65 K/uL (0.11-0.59) H 01/22/25 21:45 Eos # (Auto) 0.23 K/uL (0.00-0.50) 01/22/25 21:45 Baso # (Auto) 0.06 K/uL (0.00-0.20) 01/22/25 21:45 Immature Gran # (Auto) 0.01 K/uL (0.01-0.20) 01/22/25 21:45 PT 11.7 Seconds (9.0-12.0) 01/22/25 21:45 INR 1.1 (0.9-1.1) 01/22/25 21:45 APTT 28 Seconds (21-31) 01/22/25 21:45 PTT Ratio 1.0 01/22/25 21:45 Sodium 140 mmol/L (136-145) 01/22/25 21:45 Potassium 3.6 mmol/L (3.5-5.1) 01/22/25 21:45 Chloride 105 mmol/L (98-107) 01/22/25 21:45 Carbon Dioxide 30 mmol/L (21-32) 01/22/25 21:45 Anion Gap 5 (3-11) 01/22/25 21:45 BUN 13 mg/dl (6-23) 01/22/25:45 Creatinine 1.11 mg/dl (0.6-1.4) 01/22/25:45 Est Cr Clr Drug Dosing Not Reportable 01/22/25 21:45 eGFR 83.45 01/22/25 21:45 BUN/Creatinine Ratio 11.7 (10-20) 01/22/25 21:45 Glucose 127 mg/dl (70-99(Fasting)) H 01/22/25 21:45 Calcium 9.4 mg/dl (8.6-10.3) 01/22/25 21:45 Magnesium 2.2 mg/dl (1.7-2.4) 01/22/25 21:45 Total Bilirubin 0.8 mg/dl (0.2-1.0) 01/22/25 21:45 AST 18 U/L (13-39) 01/22/25 21:45 ALT 16 U/L (7-52) 01/22/25 21:45 Alkaline Phosphatase 75 U/L (34-104) 01/22/25 21:45 Troponin I High Sens 4.3 pg/ml (0-20) 01/22/25 21:45 Total Protein 6.9 gm/dl (6.0-8.3) 01/22/25 21:45 Albumin 4.0 gm/dl (3.4-5.0) 01/22/25 21:45 Globulin 2.9 gm/dl (2.5-4.0) 01/22/25 21:45 Albumin/Globulin Ratio 1.4 (0.9-2) 01/22/25 21:45 Nasal Screen MRSA (PCR) Negative (Negative) 01/23/[address] 01/22/25 21:53 Exam(s): CT HEAD Without Contrast EXAM: CT Head Without Intravenous Contrast CLINICAL HISTORY: neuro deficit, acute stroke suspected. TECHNIQUE: Axial computed tomography images of the head/brain without intravenous contrast. CTDI is 37 mGy and DLP is 546 mGy-cm. Automated exposure control was utilized for the study. A dose lowering technique was utilized adhering to the principles of ALARA. COMPARISON: CT head without contrast performed 11/06/2024 FINDINGS: Limitations: There is motion artifact, which degrades image quality on multiple image slices. Brain: No intracranial hemorrhage. No significant mass effect. No evidence for cortical infarct. No significant white matter disease. Ventricles: Unremarkable. No ventriculomegaly. Bones/joints: Unremarkable. No acute fracture. Soft tissues: No significant overlying soft tissue traumatic injury identified. No radiopaque foreign body or subcutaneous emphysema. Sinuses: Unremarkable as visualized. No acute sinusitis. Mastoid air cells: Unremarkable as visualized. No mastoid effusion. IMPRESSION: No acute intracranial process identified. Electronically signed by: Bradley Coleman MD 01/22/25 23:00 PM Head CTA 01/22/25 21:53 Exam(s): CTA HEAD With Contrast IV Amt: 115cc opti 320 EXAM: CT Angiography Head With Intravenous Contrast CLINICAL HISTORY: neuro deficit, acute stroke suspected. TECHNIQUE: Axial computed tomographic angiography images of the head with intravenous contrast. CTDI is 19 mGy and DLP is 521 mGy-cm. Automated exposure control was utilized for the study. A dose lowering technique was utilized adhering to the principles of ALARA. MIP reconstructed images were created and reviewed. CONTRAST: Patient received 115cc opti 320 of IV contrast COMPARISON: No relevant prior studies available. FINDINGS: Right internal carotid artery: No acute findings. Atherosclerotic calcification involving the cavernous segment. Intracranial segment is patent with no significant stenosis. No aneurysm. Right anterior cerebral artery: Unremarkable. No occlusion or significant stenosis. No aneurysm. Right middle cerebral artery: Unremarkable. No occlusion or significant stenosis. No aneurysm. Right posterior cerebral artery: Unremarkable. No occlusion or significant stenosis. No aneurysm. Right vertebral artery: Moderate disease involving the small-caliber distal right vertebral artery. No occlusion. Left internal carotid artery: No acute findings. Atherosclerotic calcification involving the cavernous segment. Intracranial segment is patent with no significant stenosis. No aneurysm. Left anterior cerebral artery: Unremarkable. No occlusion or significant stenosis. No aneurysm. Left middle cerebral artery: Unremarkable. No occlusion or significant stenosis. No aneurysm. Left posterior cerebral artery: Unremarkable. No occlusion or significant stenosis. No aneurysm. Left vertebral artery: Atherosclerotic disease involving the left vertebral artery which is dominant. No significant stenosis or occlusion. Basilar artery: Unremarkable. No occlusion or significant stenosis. No aneurysm. Brain: No abnormal parenchymal enhancement identified. IMPRESSION: Atherosclerotic changes. No significant stenosis or occlusion. Negative intracranial CTA examination. Electronically signed by: Bradley Coleman MD 01/22/25 23:07 PM Neck CTA 01/22/25 21:53 Exam(s): CTA NECK With Contrast IV Amt: 115cc opti 320 EXAM: CT Angiography Neck With Intravenous Contrast CLINICAL HISTORY: neuro deficit, acute stroke suspected. TECHNIQUE: Routine carotid CT angiography protocol was performed with intravenous contrast. NASCET criteria using the distal ICAs for comparison were used for evaluation of stenoses. CTDI is 13 mGy and DLP is 520 mGy-cm. Automated exposure control was utilized for the study. A dose lowering technique was utilized adhering to the principles of ALARA. MIP reconstructed images were created and reviewed. CONTRAST: Patient received 115cc opti 320 of IV contrast COMPARISON: None. FINDINGS: VASCULATURE: Right common carotid artery: Unremarkable. No occlusion or significant stenosis. No dissection. Right internal carotid artery: Predominantly noncalcified atheromatous changes involving the proximal right internal carotid artery, extending to the carotid bifurcation without narrowing by NASCET criteria. The mid to distal internal carotid artery is patent. No dissection. Right external carotid artery: Unremarkable. No occlusion. Right vertebral artery: The right vertebral artery is small in caliber but is widely patent without stenosis or occlusion. Left common carotid artery: Unremarkable. No occlusion or significant stenosis. No dissection. Left internal carotid artery: Partially calcified atheromatous changes noted involving the proximal left internal carotid artery, extending to the carotid bifurcation without significant stenosis by NASCET criteria. The mid to distal internal carotid artery is patent. No dissection. Left external carotid artery: Unremarkable. No occlusion. Left vertebral artery: The left vertebral artery is dominant and is widely patent. No occlusion or significant stenosis. No dissection. Aorta: The aortic arch is patent. No dissection or aneurysm. NECK: Bones/joints: Unremarkable. No acute fracture. Soft tissues: Unremarkable. Thyroid: There is a hypoattenuating nodule involving the lateral aspect of the right thyroid gland measuring 8 mm. ACR White Paper guidelines (Héctor RICE, et al. JACR 2015;12(2):143-50) suggest no follow-up is necessary. Lung apices: Clear. CAROTID STENOSIS REFERENCE USING NASCET CRITERIA: % ICA stenosis = (1 - narrowest ICA diameter/diameter of distal cervical ICA) x 100. Mild - <50% stenosis. Moderate - 50-69% stenosis. Severe - 70-94% stenosis. Near occlusion - 95-99% stenosis. Occluded - 100% stenosis. IMPRESSION: 1. Atheromatous changes involving both carotid bifurcations without significant stenosis by NASCET criteria. The internal and common carotid arteries are otherwise patent. 2. The vertebral arteries are patent bilaterally with the left vertebral artery dominant in size. Electronically signed by: Bradley Coleman MD 01/22/25 23:04 PM Chest X-Ray 01/22/25 23:36 Exam(s): XR CXR 1 VIEW EXAM: XR Chest, 1 View CLINICAL HISTORY: stroke. TECHNIQUE: Frontal view of the chest. COMPARISON: Portable chest single view 11/06/2024 FINDINGS: Lungs: Unremarkable. No consolidation. The pulmonary vasculature demonstrates no significant radiographic abnormality. Pleural space: Unremarkable. No pneumothorax. No large pleural effusion. Heart: The cardiac silhouette is within normal limits, accounting for portable technique. Mediastinum: No significant abnormality identified. The trachea is midline. Bones/joints: Unremarkable. No acute fracture. Tubes, lines and devices: An implanted loop cardiac monitoring device overlies the left heart border, stable. IMPRESSION: No focal consolidation or acute cardiopulmonary process identified. Electronically signed by: Bradley Coleman MD 01/23/25 00:02 AM Code Status & VTE Plan Code Status Full code VTE Prophylaxis Plan VTE Prophylaxis will be ordered: Yes PG Care Time/CCT Total # of Minutes Spent Total Time Spent with Patient: Total time spent is greater than 50% in coordination of care (as documented) at patient's floor/unit and/or counseling patient: Coding Level of Care Code 89194 INT INP/OBS CARE 3/75MIN Diagnoses Atrial fibrillation I48.91 Hypertension I10 Seizure-like activity R56.9 Hemiparesis affecting left side as late effect of stroke I69.354 Stroke-like symptoms R29.90
--- NOTE | 2025-01-23 01:15 | Emergency Department Note ---
Impression & Plan Stroke-like symptoms ED Provider Note CHIEF COMPLAINT: Stroke symptoms HISTORY OF PRESENT ILLNESS: This 45-year-old male patient past medical history of atrial fibrillation, stroke, anticoagulation, hypertension, seizure disorder, GERD presents emergency department from the [facility] intermediate after being found facedown in his cell. The patient states he got up to go to the bathroom and fell to the ground, hitting his head. The fall was not witnessed. The present staff states his speech was slurred, he does have left sided upper and lower extremity hemiparesis. According to [facility] records, the patient was admitted several months ago for very similar presentation. He does have a defibrillator in place which is not MRI compatible. The patient did not have a loss of consciousness reported. He has not had any vomiting. He states he takes his medications as prescribed. REVIEW OF SYSTEMS: A review of systems was performed with positives and pertinent negatives listed in the history of present illness. 10 systems were reviewed and are otherwise negative. ALLERGIES: see below MEDICATIONS: see below PMH: see below SOCIAL HISTORY: see below DDx: Stroke, intracranial hemorrhage, atypical migraine headache, conversion disorder, seizure among others. PHYSICAL EXAM: Vital signs reviewed. General: Chronically ill appearing 45-year-old male, in no significant distress. HEENT: No scleral icterus, PERRLA, neck supple. Moist mucous membranes. Cardiovascular: Regular rate and rhythm, no extra sounds. Pulmonary: Clear to auscultation bilaterally, normal work of breathing. Abdomen: Soft, nontender, nondistended, positive bowel sounds. Musculoskeletal: Atraumatic, no peripheral edema. Neurologic: Patient awake alert and oriented x 3, speech is difficult to understand, no aphasia necessarily. Cranial nerves II through XII are grossly intact. Skin: Warm, dry, no rash EMERGENCY DEPARTMENT COURSE/MDM: Patient's presentation is concerning, he was sent for CT/CTA. He did have an allergy to contrast listed however he received it in the past at our facility just several months ago without difficulty. He was given IV Solu-Medrol and Benadryl to be cautious. He tolerated the injections without difficulty. I am concerned that the patient's presentation is atypical for stroke. In review of his records, it does seem that the left lower extremity weakness is chronic but the left upper extremity weakness and speech difficulty seems to be unrelated to stroke. The patient's presentation seems to be identical to his previous. I do not feel that any urgent intervention is required at this time. His CTs are negative for LVO. He will be evaluated by the hospitalist service for admission and further management. MONITORING: An order for cardiac monitoring was placed and the patient is noted to be in a NSR at 70 beats per minute. RADIOLOGY: Chest x-ray to my interpretation reveals no focal lung consolidation or failure EKG: To my interpretation reveals a normal sinus rhythm at 77 bpm. QTc of 448. Normal ST segments. No ectopy. DISPOSITION: Admission Past Med/Surg History Problem List Stroke-like symptoms (Acute) Medical History Seizure-like activity Stroke-like episode Stroke Hypertension GERD (gastroesophageal reflux disease) Atrial fibrillation Social History Smoking Status: Never smoker Hx Alcohol Use: No Hx Substance Use: No Preferred Language: Citizen Of [place] Communication Ability: Effective [place] Required: No Beliefs That Will Affect Care: None Current Living Situation: Other Current Living Situation Comment: [facility] Feels Safe at Home: Yes Assistive Devices: Wheelchair Allergies Allergies Allergy/AdvReac Type Severity Reaction Status Date / Time Iodinated Contrast Media Allergy Severe SCI RECORD Verified 01/22/25 23:06 iodine Allergy Severe Anaphylaxis Verified 01/22/25 23:06 shellfish derived Allergy Severe Anaphylaxis Verified 01/22/25 23:06 aripiprazole [From Abilify] Allergy Unknown ON SCI Verified 01/22/25 23:06 [facility] MED LIST bee venom protein (honey bee) Allergy Unknown ON SCI Verified 01/22/25 23:06 [facility] MED LIST diphenhydramine Allergy Unknown ON SCI Verified 01/22/25 23:06 [From Benadryl Allergy] [facility] LIST Fish Containing Products Allergy Unknown ON SCI Verified 01/22/25 23:06 [facility] MED LIST latex Allergy Unknown ON SCI Verified 01/22/25 23:06 [facility] LIST mustard Allergy Unknown ON SCI Verified 01/22/25 23:06 [facility] MED LIST olanzapine [From Zyprexa] Allergy Unknown ON SCI Verified 01/22/25 23:06 [facility] LIST Penicillins Allergy Unknown ON SCI Verified 01/22/25 23:06 [facility] LIST GRAVY Allergy Unknown ON SCI Uncoded 01/22/25 23:06 [facility] MED LIST Home Meds Home Medications Medication Instructions Recorded Confirmed albuterol sulfate 90 mcg/actuation 2 puff inhalation QID PRN 08/10/24 01/22/25 aerosol inhaler Shortness Of Breath atorvastatin 80 mg tablet 80 mg PO HS 08/10/24 01/22/25 famotidine 20 mg tablet 20 mg PO HS 08/10/24 01/22/25 fluticasone 500 mcg-salmeterol 50 1 inh inhalation BID 08/10/24 01/22/25 mcg/dose blistr powdr for inhalation (Advair Diskus) nebivolol 20 mg tablet 20 mg PO DAILY 08/10/24 01/22/25 nitroglycerin 0.4 mg sublingual 0.4 mg sublingual .Q 5 MINUTES X3 08/10/24 01/22/25 tablet (Nitrostat) PRN Chest Pain pantoprazole 40 mg tablet,delayed 40 mg PO DAILY 08/10/24 01/22/25 release rivaroxaban 20 mg tablet (Xarelto) 20 mg PO DAILY 08/10/24 01/22/25 aspirin 81 mg tablet,delayed 81 mg PO DAILY 11/06/24 01/22/25 release levetiracetam 500 mg tablet 500 mg PO BID 11/06/24 01/22/25 (Keppra) lisinopril 30 mg tablet 30 mg PO DAILY 01/22/25 01/22/25 Previous Rx's Medication Instructions Recorded tamsulosin 0.4 mg capsule 0.4 mg PO HS #30 caps 08/14/24 Results & Data (ED) Vital Signs Vital Signs - 24 hr 01/22/25 21:45 01/22/25 21:59 01/22/25 22:00 Temperature 37.4 C Temperature Source Oral Pulse Rate 79 87 69 Pulse Rate [Apical] Pulse Rhythm Regular Pulse Rhythm [Apical] Pulse Strength Normal Pulse Strength [Apical] Respiratory Rate 12 23 Respiratory Effort / Characteristics Non-Labored Spontaneous Respiratory Depth Normal Respiratory Pattern Blood Pressure 169/123 H 149/111 H Blood Pressure [Left Arm] Blood Pressure Mean 138 126 Blood Pressure Mean [Left Arm] Blood Pressure Position Semi-fowlers Blood Pressure Position [Left Arm] Pulse Oximetry 95 95 Oxygen Delivery Method Room Air Room Air Sepsis Recent Fever Within 48 Hours No Sepsis New/Unexplained Change in Mental Status No Sepsis Action Taken by Nursing No Action Required 01/22/25 22:46 01/22/25 23:00 01/22/25 23:30 Temperature Temperature Source Pulse Rate 66 64 Pulse Rate [Apical] 68 Pulse Rhythm Pulse Rhythm [Apical] Regular Pulse Strength Pulse Strength [Apical] Normal Respiratory Rate 21 23 Respiratory Effort / Characteristics Non-Labored Respiratory Depth Normal Respiratory Pattern Regular Blood Pressure 137/90 137/92 Blood Pressure [Left Arm] 150/98 H Blood Pressure Mean 103 110 Blood Pressure Mean [Left Arm] 115 Blood Pressure Position Blood Pressure Position [Left Arm] Semi-fowlers Pulse Oximetry 96 98 95 Oxygen Delivery Method Room Air Room Air Room Air Sepsis Recent Fever Within 48 Hours Sepsis New/Unexplained Change in Mental Status Sepsis Action Taken by Nursing 01/23/25 00:02 01/23/25 00:31 Temperature Temperature Source Pulse Rate 70 Pulse Rate [Apical] Pulse Rhythm Pulse Rhythm [Apical] Pulse Strength Pulse Strength [Apical] Respiratory Rate 20 22 Respiratory Effort / Characteristics Respiratory Depth Respiratory Pattern Blood Pressure 149/105 H 133/109 H Blood Pressure [Left Arm] Blood Pressure Mean 112 114 Blood Pressure Mean [Left Arm] Blood Pressure Position Blood Pressure Position [Left Arm] Pulse Oximetry 96 96 Oxygen Delivery Method Room Air Room Air Sepsis Recent Fever Within 48 Hours Sepsis New/Unexplained Change in Mental Status Sepsis Action Taken by Longterm Medications Current Medication List: was personally reviewed by me Laboratory Data Attestation: I reviewed the patient's lab results. 01/22/25 21:45 01/22/25 21:45 Lab Results 01/22/25 Range/Units 21:45 WBC 7.34 (4.8-10.8) K/ul RBC 4.73 (4.70-6.10) M/uL Hgb 14.6 (14.0-18.0) g/dl Hct 42.0 (42.0-52.0) % MCV 88.8 (80.0-100.0) fL MCH 30.9 (25.0-34.0) pg MCHC 34.8 (32.0-36.0) g/dL RDW Std Deviation 41.3 (36.4-46.3) fL RDW Coeff of Margareth 12.8 (11.5-14.5) % Plt Count 152 (130-400) K/uL MPV 12.0 (9.4-12.4) fL Immature Gran % (Auto) 0.1 % Neut % (Auto) 66.4 % Lymph % (Auto) 20.7 % Ocean % (Auto) 8.9 % Eos % (Auto) 3.1 % Baso % (Auto) 0.8 % Neut # (Auto) 4.87 (1.40-6.50) K/uL Lymph # (Auto) 1.52 (1.20-3.40) K/uL Ocean # (Auto) 0.65 H (0.11-0.59) K/uL Eos # (Auto) 0.23 (0.00-0.50) K/uL Baso # (Auto) 0.06 (0.00-0.20) K/uL Immature Gran # (Auto) 0.01 (0.01-0.20) K/uL PT 11.7 (9.0-12.0) Seconds INR 1.1 (0.9-1.1) APTT 28 (21-31) Seconds PTT Ratio 1.0 Sodium 140 (136-145) mmol/L Potassium 3.6 (3.5-5.1) mmol/L Chloride 105 (98-107) mmol/L Carbon Dioxide 30 (21-32) mmol/L Anion Gap 5 (3-11) BUN 13 (6-23) mg/dl Creatinine 1.11 (0.6-1.4) mg/dl Est Cr Clr Drug Dosing Not Reportable eGFR 83.45 BUN/Creatinine Ratio 11.7 (10-20) Glucose 127 H (70-99(Fasting)) mg/dl Calcium 9.4 (8.6-10.3) mg/dl Magnesium 2.2 (1.7-2.4) mg/dl Total Bilirubin 0.8 (0.2-1.0) mg/dl AST 18 (13-39) U/L ALT 16 (7-52) U/L Alkaline Phosphatase 75 (34-104) U/L Troponin I High Sens 4.3 (0-20) pg/ml Total Protein 6.9 (6.0-8.3) gm/dl Albumin 4.0 (3.4-5.0) gm/dl Globulin 2.9 (2.5-4.0) gm/dl Albumin/Globulin Ratio 1.4 (0.9-2) Administered Medications Discontinued Medications Diphenhydramine HCl (Diphenhydramine 50 Mg/Ml Vial) 25 mg IV NOW STA Stop: 01/22/25 22:02 Last Admin: 01/22/25 22:06 Dose: 25 mg Documented By: cain Ioversol (Optiray 320 125ml) 115 ml IV ONCE ONE Stop: 01/22/25 22:17 Last Admin: 01/22/25 22:16 Dose: 115 ml Documented By: KAREN Methylprednisolone (Methylprednisolone 125 Mg/2 Ml Vial) 60 mg IV NOW STA Stop: 01/22/25 22:02 Last Admin: 01/22/25 22:05 Dose: 60 mg Documented By: cain Imaging Data Radiologist's Impression: Head CT 01/22/25 21:53 Exam(s): CT HEAD Without Contrast EXAM: CT Head Without Intravenous Contrast CLINICAL HISTORY: neuro deficit, acute stroke suspected. TECHNIQUE: Axial computed tomography images of the head/brain without intravenous contrast. CTDI is 37 mGy and DLP is 546 mGy-cm. Automated exposure control was utilized for the study. A dose lowering technique was utilized adhering to the principles of ALARA. COMPARISON: CT head without contrast performed 11/06/2024 FINDINGS: Limitations: There is motion artifact, which degrades image quality on multiple image slices. Brain: No intracranial hemorrhage. No significant mass effect. No evidence for cortical infarct. No significant white matter disease. Ventricles: Unremarkable. No ventriculomegaly. Bones/joints: Unremarkable. No acute fracture. Soft tissues: No significant overlying soft tissue traumatic injury identified. No radiopaque foreign body or subcutaneous emphysema. Sinuses: Unremarkable as visualized. No acute sinusitis. Mastoid air cells: Unremarkable as visualized. No mastoid effusion. IMPRESSION: No acute intracranial process identified. Electronically signed by: Bradley Coleman MD 01/22/25 23:00 PM Head CTA 01/22/25 21:53 Exam(s): CTA HEAD With Contrast IV Amt: 115cc opti 320 EXAM: CT Angiography Head With Intravenous Contrast CLINICAL HISTORY: neuro deficit, acute stroke suspected. TECHNIQUE: Axial computed tomographic angiography images of the head with intravenous contrast. CTDI is 19 mGy and DLP is 521 mGy-cm. Automated exposure control was utilized for the study. A dose lowering technique was utilized adhering to the principles of ALARA. MIP reconstructed images were created and reviewed. CONTRAST: Patient received 115cc opti 320 of IV contrast COMPARISON: No relevant prior studies available. FINDINGS: Right internal carotid artery: No acute findings. Atherosclerotic calcification involving the cavernous segment. Intracranial segment is patent with no significant stenosis. No aneurysm. Right anterior cerebral artery: Unremarkable. No occlusion or significant stenosis. No aneurysm. Right middle cerebral artery: Unremarkable. No occlusion or significant stenosis. No aneurysm. Right posterior cerebral artery: Unremarkable. No occlusion or significant stenosis. No aneurysm. Right vertebral artery: Moderate disease involving the small-caliber distal right vertebral artery. No occlusion. Left internal carotid artery: No acute findings. Atherosclerotic calcification involving the cavernous segment. Intracranial segment is patent with no significant stenosis. No aneurysm. Left anterior cerebral artery: Unremarkable. No occlusion or significant stenosis. No aneurysm. Left middle cerebral artery: Unremarkable. No occlusion or significant stenosis. No aneurysm. Left posterior cerebral artery: Unremarkable. No occlusion or significant stenosis. No aneurysm. Left vertebral artery: Atherosclerotic disease involving the left vertebral artery which is dominant. No significant stenosis or occlusion. Basilar artery: Unremarkable. No occlusion or significant stenosis. No aneurysm. Brain: No abnormal parenchymal enhancement identified. IMPRESSION: Atherosclerotic changes. No significant stenosis or occlusion. Negative intracranial CTA examination. Electronically signed by: Bradley Coleman MD 01/22/25 23:07 PM Neck CTA 01/22/25 21:53 Exam(s): CTA NECK With Contrast IV Amt: 115cc opti 320 EXAM: CT Angiography Neck With Intravenous Contrast CLINICAL HISTORY: neuro deficit, acute stroke suspected. TECHNIQUE: Routine carotid CT angiography protocol was performed with intravenous contrast. NASCET criteria using the distal ICAs for comparison were used for evaluation of stenoses. CTDI is 13 mGy and DLP is 520 mGy-cm. Automated exposure control was utilized for the study. A dose lowering technique was utilized adhering to the principles of ALARA. MIP reconstructed images were created and reviewed. CONTRAST: Patient received 115cc opti 320 of IV contrast COMPARISON: None. FINDINGS: VASCULATURE: Right common carotid artery: Unremarkable. No occlusion or significant stenosis. No dissection. Right internal carotid artery: Predominantly noncalcified atheromatous changes involving the proximal right internal carotid artery, extending to the carotid bifurcation without narrowing by NASCET criteria. The mid to distal internal carotid artery is patent. No dissection. Right external carotid artery: Unremarkable. No occlusion. Right vertebral artery: The right vertebral artery is small in caliber but is widely patent without stenosis or occlusion. Left common carotid artery: Unremarkable. No occlusion or significant stenosis. No dissection. Left internal carotid artery: Partially calcified atheromatous changes noted involving the proximal left internal carotid artery, extending to the carotid bifurcation without significant stenosis by NASCET criteria. The mid to distal internal carotid artery is patent. No dissection. Left external carotid artery: Unremarkable. No occlusion. Left vertebral artery: The left vertebral artery is dominant and is widely patent. No occlusion or significant stenosis. No dissection. Aorta: The aortic arch is patent. No dissection or aneurysm. NECK: Bones/joints: Unremarkable. No acute fracture. Soft tissues: Unremarkable. Thyroid: There is a hypoattenuating nodule involving the lateral aspect of the right thyroid gland measuring 8 mm. ACR White Paper guidelines (Anaya JK, et al. JACR 2015;12(2):143-50) suggest no follow-up is necessary. Lung apices: Clear. CAROTID STENOSIS REFERENCE USING NASCET CRITERIA: % ICA stenosis = (1 - narrowest ICA diameter/diameter of distal cervical ICA) x 100. Mild - <50% stenosis. Moderate - 50-69% stenosis. Severe - 70-94% stenosis. Near occlusion - 95-99% stenosis. Occluded - 100% stenosis. IMPRESSION: 1. Atheromatous changes involving both carotid bifurcations without significant stenosis by NASCET criteria. The internal and common carotid arteries are otherwise patent. 2. The vertebral arteries are patent bilaterally with the left vertebral artery dominant in size. Electronically signed by: Bradley Coleman MD 01/22/25 23:04 PM Chest X-Ray 01/22/25 23:36 Exam(s): XR CXR 1 VIEW EXAM: XR Chest, 1 View CLINICAL HISTORY: stroke. TECHNIQUE: Frontal view of the chest. COMPARISON: Portable chest single view 11/06/2024 FINDINGS: Lungs: Unremarkable. No consolidation. The pulmonary vasculature demonstrates no significant radiographic abnormality. Pleural space: Unremarkable. No pneumothorax. No large pleural effusion. Heart: The cardiac silhouette is within normal limits, accounting for portable technique. Mediastinum: No significant abnormality identified. The trachea is midline. Bones/joints: Unremarkable. No acute fracture. Tubes, lines and devices: An implanted loop cardiac monitoring device overlies the left heart border, stable. IMPRESSION: No focal consolidation or acute cardiopulmonary process identified. Electronically signed by: Bradley Coleman MD 01/23/25 00:02 AM Discharge Plan Visit Data Chief Complaint: Fall Stated Complaint: SCI ED Provider: Dorina Magallon Discharge Problem: Stroke-like symptoms Patient Disposition: Admitted As Inpatient Condition: Fair Forms Stand Alone Forms: My [facility] Prescriptions Prescriptions: No Action levetiracetam [Keppra] 500 mg Tablet 500 mg PO BID aspirin 81 mg Tablet,Delayed Release (Dr/Ec) 81 mg PO DAILY lisinopril 30 mg Tablet 30 mg PO DAILY atorvastatin 80 mg Tablet 80 mg PO HS famotidine 20 mg Tablet 20 mg PO HS pantoprazole 40 mg Tablet,Delayed Release (Dr/Ec) 40 mg PO DAILY fluticasone propion-salmeterol [Advair Diskus] 500-50 mcg/dose Blister With Device 1 inh INHALATION BID nitroglycerin [Nitrostat] 0.4 mg Tablet, Sublingual 0.4 mg sublingual .Q 5 MINUTES X3 PRN (Reason: Chest Pain) albuterol sulfate 90 mcg/actuation Hfa Aerosol Inhaler 2 puff INHALATION QID PRN (Reason: Shortness Of Breath) nebivolol 20 mg Tablet 20 mg PO DAILY Xarelto 20 mg Tablet 20 mg PO DAILY Rx Instructions: must administer with evening meal tamsulosin 0.4 mg Capsule 0.4 mg PO HS Qty: 30 0RF Referrals Referrals: Jimy YO [Primary Care Provider] -
[2025-01-23] MEDS ORDERED: ALBUTEROL HFA 8 GM INHALER INH PRN (02:33)
[2025-01-23] MEDS ORDERED: NITROGLYCERIN SL 0.4 MG/TAB TAB SL PRN (02:33)
[2025-01-23] MEDS ORDERED: ACETAMINOPHEN 325 MG TAB PO PRN (02:33)
[2025-01-23] MEDS ORDERED: PHARMACIST DISCHARGE MED REC CONSULT PRN (02:33)
[2025-01-23] MEDS: levETIRAcetam 500 MG TAB PO SCH (02:47)
[2025-01-23 06:39] LABS: Hematocrit (blood only) 43.6 % (42.0-52.0); Hemoglobin 15.3 g/dl (14.0-18.0); Immature Granulocytes # (auto) 0.02 K/uL (0.01-0.20); Immature Granulocytes % (auto) 0.4 %; Mean Corpuscular Hemoglobin 30.8 pg (25.0-34.0); Mean Corpuscular Volume 87.7 fL (80.0-100.0); Platelet Count 159 K/uL (130-400); RDW Standard Deviation 40.6 fL (36.4-46.3); Red Blood Count 4.97 M/uL (4.70-6.10); White Blood Count 5.41 K/ul (4.8-10.8)
[2025-01-23 07:14] LABS: Albumin Level 4.4 gm/dl (3.4-5.0); Anion Gap 8.0 (3-11); Blood Urea Nitrogen 15.0 mg/dl (6-23); Calcium 9.5 mg/dl (8.6-10.3); Carbon Dioxide 24.0 mmol/L (21-32); Chloride 107.0 mmol/L (98-107); Cholesterol 103.0 mg/dl (0-200); Creatinine Clr Calc Pharmacy 108.6 ml/min; Glucose 150.0 mg/dl (70-99(Fasting)); HDL Cholesterol 38.0 mg/dl; Potassium 4.1 mmol/L (3.5-5.1); Sodium 139.0 mmol/L (136-145); Triglycerides 24.0 mg/dl (0-150)
[2025-01-23] MEDS: ASPIRIN 81 MG ECTAB PO SCH (07:45)
[2025-01-23] MEDS: FLUTICASONE/VILANTEROL 200/25MCG 14 PUFFS/INHALER INH SCH (07:45)
[2025-01-23] MEDS: METOPROLOL TARTRATE 50 MG TAB PO SCH (07:46)
[2025-01-23 08:59] LABS: Hemoglobin A1C 4.5 % (4.5-5.6)
--- NOTE | 2025-01-23 09:52 | CT Scan Report ---
CT head/brain wo con CLINICAL HISTORY: 45 years-old Male with follow up to assess for CVA. Acute stroke like symptoms TECHNIQUE: Multiple axial CT images of the head were obtained without contrast. A dose lowering tech nique was utilized adhering to the principles of ALARA. CT DOSE: 625.8 mGy.cm COMPARISON: Head CT 01/22/2025, 11/06/2024 FINDINGS: No acute intracranial hemorrhage, midline shift, intracranial mass, hydrocephalus, territorial ischem ia or abnormal extra-axial collection. Chronic appearing left ponce radiata/lentiform nuclear lacuna r infarct. Cerebral vascular calcifications are noted. The calvarium is intact. The paranasal sinuses, mastoid air cells, and middle ear cavities are clear . IMPRESSION: No acute intracranial abnormality. ACT 112: Negative or not required by law. The above report was generated using voice recognition software. It may contain grammatical, syntax o r spelling errors. Electronically signed by: Raul Rose M.D. 01/23/2025 9:50 AM
[2025-01-23] MEDS: SODIUM CHLORIDE 0.9% 1,000 ML IV SCH (10:11)
--- NOTE | 2025-01-23 11:57 | Hospitalist Progress Note ---
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 hx of MS (not verifiied)hypertension, GERD, BPH,, asthma, conversion The patient brought to the ED via EMS after being found on the floor at [facility] following an unwitnessed fall. He reports that he got up to go to the bathroom, and fell to the ground, hitting his head. The nursing home staff states that his speech was slurred, there was no changes left lower extremity), febrile, he had new left sided upper extremity hemiparesis. His presentation very similar to previous admissions from 08/10-, and was seen in the emergency department on 11/06/2024 for the same symptoms, a stroke alert workup performed, and then was discharged back to the nursing home. During admission from 08/10- 08/14/2024, the patient was started on Keppra due to an abnormal EEG. This evening, CT scan of head was negative, CTA head was negative, and CTA neck showed stable bilateral carotid bifurcation mild atheromatous changes that were not considered clinically significant. The patient was referred to the [facility] Hospitalist service for further evaluation and treatment. Of note, the patient is not able to get an MRI, due to presence of a non- MRI compatible ICD. dysphagia episode strict NPo, no med. aspiration precaution plan for swallowing video studies tomorrow Strokelike symptoms- Patient had an unwitnessed episode at [facility], found on the floor there, that he reports having fallen and hit his head. significant expressive aphasia. aspirin, statin, plavix, permissive HTN He has chronic left lower extremity weakness. It is 2 episodes from 08/10-, and 11/06/2024, he presented with similar symptoms of new left upper extremity weakness, and difficulty with speech/aphasia/slurred speech. CT scan head was negative for acute change, CTA head was negative, CTA of neck showed clinically not significant bilateral carotid bifurcation atheromatous changes. Question of conversion disorder and brought up at previous admission Patient will be placed on stroke without thrombolytic order set, however, symptoms are more consistent with his previous admissions. Patient nods his head that he is able to swallow, and will therefore place him on usual oral medications in the a.m. As noted, I cannot order an MRI due to the patient's ICD being noncompatible Seizure-like activity- Patient had abnormal EEG during admission from 08/10-, and was placed on Keppra that time. Continue Keppra 500 mg p.o. twice daily Order EEG Consult neurology to see if dosing of Keppra needs to be adjusted Atrial fibrillation/hypertension/chronic anticoagulation with Xarelto- Continue Nebivolol, Xarelto, lisinopril, and aspirin The patient will be admitted to telemetry for serial cardiac enzymes, serial EKG's, cardiac rhythm monitoring and a 2-D echocardiogram with Dopplers. Last echo on with ejection fraction 60-65% Hyperlipidemia- Continue atorvastatin Asthma- Continue Advair discus or equivalent, albuterol sulfate HFA 2 puffs 4 times daily as needed GERD-Continue pantoprazole and famotidine BPH-Continue tamsulosin Admission and Anticipated Discharge Date Admission Date: January 23, 2025 Subjective he has significant left side weakness expressive aphasia unable to tolerate MRI empiric management with permissve HTN, IV fluid failed bedside speech eval, plan for video swallowing studies HOB at 30 degee for aspiration precaution f/u on echo with bubble studies Physical Exam Physical Exam: VITALS: Reviewed. WEIGHT/BMI reviewed. GEN: Healthy appearing, well-developed, NAD. Neuro + for left side weakness (unable to wringle toes, unable to squeeze hand) significant expressive aphasia, following command. AAox2. -Head: NC/AT; -Mouth and throat: MMM. Normal gums, muc azul, palate,. Good dentition. NECK: Supple, with no masses. CV: RRR, no m/r/g. LUNGS: CTAB, no w/r/c. ABD: Soft, NT/ND, NBS, no masses or organomegaly. Results & Data Results & Data Vital Signs (Past 12 Hours) Vital Signs Temp Pulse Pulse Resp BP BP Pulse Ox 01/23/25 11:03 36.5 C 55 L 113/69 96 01/23/25 09:05 59 L 122/85 01/23/25 08:00 57 L 01/23/25 07:12 36.5 C 57 L 20 97/56 L 95 01/23/25 02:37 36.7 C 63 18 148/95 H 95 01/23/25 02:33 64 01/23/25 02:00 67 22 140/105 H 97 01/23/25 00:31 70 22 133/109 H 96 01/23/25 00:02 20 149/105 H 96 O2 Del Method 01/23/25 11:03 Room Air 01/23/25 09:05 01/23/25 08:00 01/23/25 07:12 Room Air 01/23/25 02:37 Room Air 01/23/25 02:33 01/23/25 02:00 Room Air 01/23/25 00:31 Room Air 01/23/25 00:02 Room Air Laboratory Results Laboratory Results - last 72 hr 01/22/25 01/22/25 01/23/25 21:45 21:54 06:18 WBC 7.34 5.41 RBC 4.73 4.97 Hgb 14.6 15.3 POC Hgb 13.9 L Hct 42.0 43.6 POC Hct 41 L MCV 88.8 87.7 MCH 30.9 30.8 MCHC 34.8 35.1 RDW Std Deviation 41.3 40.6 RDW Coeff of Margareth 12.8 12.7 Plt Count 152 159 MPV 12.0 11.9 Immature Gran % (Auto) 0.1 0.4 Neut % (Auto) 66.4 86.6 Lymph % (Auto) 20.7 11.1 [place] % (Auto) 8.9 1.3 Eos % (Auto) 3.1 0.2 Baso % (Auto) 0.8 0.4 Neut # (Auto) 4.87 4.69 Lymph # (Auto) 1.52 0.60 L [place] # (Auto) 0.65 H 0.07 L Eos # (Auto) 0.23 0.01 Baso # (Auto) 0.06 0.02 Immature Gran # (Auto) 0.01 0.02 PT 11.7 INR 1.1 APTT 28 PTT Ratio 1.0 POC Sodium 141 Sodium 140 139 POC Potassium 3.6 Potassium 3.6 4.1 POC Chloride 103 Chloride 105 107 Carbon Dioxide 30 24 POC Total CO2 29 Anion Gap 5 8 POC Anion Gap 14.0 L POC BUN 14 BUN 13 15 Creatinine 1.11 0.90 POC Creatinine 1.2 Est Cr Clr Drug Dosing Not Reportable 108.6 eGFR 83.45 106.67 BUN/Creatinine Ratio 11.7 16.7 Glucose 127 H 150 H POC Glucose (other) 126 H Estimat Average Glucose 82 Hemoglobin A1c 4.5 Calcium 9.4 9.5 POC Ioniz Calcium Marivel 1.22 Phosphorus 3.4 Magnesium 2.2 Total Bilirubin 0.8 AST 18 ALT 16 Alkaline Phosphatase 75 Troponin I High Sens 4.3 Total Protein 6.9 Albumin 4.0 4.4 Globulin 2.9 Albumin/Globulin Ratio 1.4 Triglycerides 24 Cholesterol 103 LDL Cholesterol, Calc 60 VLDL Cholesterol, Calc 5 HDL Cholesterol 38 Cholesterol/HDL Ratio 2.7 Nasal Screen MRSA (PCR) 01/23/25 Unknown WBC RBC Hgb POC Hgb Hct POC Hct MCV MCH MCHC RDW Std Deviation RDW Coeff of Margareth Plt Count MPV Immature Gran % (Auto) Neut % (Auto) Lymph % (Auto) [place] % (Auto) Eos % (Auto) Baso % (Auto) Neut # (Auto) Lymph # (Auto) [place] # (Auto) Eos # (Auto) Baso # (Auto) Immature Gran # (Auto) PT INR APTT PTT Ratio POC Sodium Sodium POC Potassium Potassium POC Chloride Chloride Carbon Dioxide POC Total CO2 Anion Gap POC Anion Gap POC BUN BUN Creatinine POC Creatinine Est Cr Clr Drug Dosing eGFR BUN/Creatinine Ratio Glucose POC Glucose (other) Estimat Average Glucose Hemoglobin A1c Calcium POC Ioniz Calcium Marivel Phosphorus Magnesium Total Bilirubin AST ALT Alkaline Phosphatase Troponin I High Sens Total Protein Albumin Globulin Albumin/Globulin Ratio Triglycerides Cholesterol LDL Cholesterol, Calc VLDL Cholesterol, Calc HDL Cholesterol Cholesterol/HDL Ratio Nasal Screen MRSA (PCR) Negative Diagnostic Findings Head CT 01/22/25 21:53 Exam(s): CT HEAD Without Contrast EXAM: CT Head Without Intravenous Contrast CLINICAL HISTORY: neuro deficit, acute stroke suspected. TECHNIQUE: Axial computed tomography images of the head/brain without intravenous contrast. CTDI is 37 mGy and DLP is 546 mGy-cm. Automated exposure control was utilized for the study. A dose lowering technique was utilized adhering to the principles of ALARA. COMPARISON: CT head without contrast performed 11/06/2024 FINDINGS: Limitations: There is motion artifact, which degrades image quality on multiple image slices. Brain: No intracranial hemorrhage. No significant mass effect. No evidence for cortical infarct. No significant white matter disease. Ventricles: Unremarkable. No ventriculomegaly. Bones/joints: Unremarkable. No acute fracture. Soft tissues: No significant overlying soft tissue traumatic injury identified. No radiopaque foreign body or subcutaneous emphysema. Sinuses: Unremarkable as visualized. No acute sinusitis. Mastoid air cells: Unremarkable as visualized. No mastoid effusion. IMPRESSION: No acute intracranial process identified. Electronically signed by: Bradley Coleman MD 01/22/25 23:00 PM Head CTA 01/22/25 21:53 Exam(s): CTA HEAD With Contrast IV Amt: 115cc opti 320 EXAM: CT Angiography Head With Intravenous Contrast CLINICAL HISTORY: neuro deficit, acute stroke suspected. TECHNIQUE: Axial computed tomographic angiography images of the head with intravenous contrast. CTDI is 19 mGy and DLP is 521 mGy-cm. Automated exposure control was utilized for the study. A dose lowering technique was utilized adhering to the principles of ALARA. MIP reconstructed images were created and reviewed. CONTRAST: Patient received 115cc opti 320 of IV contrast COMPARISON: No relevant prior studies available. FINDINGS: Right internal carotid artery: No acute findings. Atherosclerotic calcification involving the cavernous segment. Intracranial segment is patent with no significant stenosis. No aneurysm. Right anterior cerebral artery: Unremarkable. No occlusion or significant stenosis. No aneurysm. Right middle cerebral artery: Unremarkable. No occlusion or significant stenosis. No aneurysm. Right posterior cerebral artery: Unremarkable. No occlusion or significant stenosis. No aneurysm. Right vertebral artery: Moderate disease involving the small-caliber distal right vertebral artery. No occlusion. Left internal carotid artery: No acute findings. Atherosclerotic calcification involving the cavernous segment. Intracranial segment is patent with no significant stenosis. No aneurysm. Left anterior cerebral artery: Unremarkable. No occlusion or significant stenosis. No aneurysm. Left middle cerebral artery: Unremarkable. No occlusion or significant stenosis. No aneurysm. Left posterior cerebral artery: Unremarkable. No occlusion or significant stenosis. No aneurysm. Left vertebral artery: Atherosclerotic disease involving the left vertebral artery which is dominant. No significant stenosis or occlusion. Basilar artery: Unremarkable. No occlusion or significant stenosis. No aneurysm. Brain: No abnormal parenchymal enhancement identified. IMPRESSION: Atherosclerotic changes. No significant stenosis or occlusion. Negative intracranial CTA examination. Electronically signed by: Bradley Coleman MD 01/22/25 23:07 PM Neck CTA 01/22/25 21:53 Exam(s): CTA NECK With Contrast IV Amt: 115cc opti 320 EXAM: CT Angiography Neck With Intravenous Contrast CLINICAL HISTORY: neuro deficit, acute stroke suspected. TECHNIQUE: Routine carotid CT angiography protocol was performed with intravenous contrast. NASCET criteria using the distal ICAs for comparison were used for evaluation of stenoses. CTDI is 13 mGy and DLP is 520 mGy-cm. Automated exposure control was utilized for the study. A dose lowering technique was utilized adhering to the principles of ALARA. MIP reconstructed images were created and reviewed. CONTRAST: Patient received 115cc opti 320 of IV contrast COMPARISON: None. FINDINGS: VASCULATURE: Right common carotid artery: Unremarkable. No occlusion or significant stenosis. No dissection. Right internal carotid artery: Predominantly noncalcified atheromatous changes involving the proximal right internal carotid artery, extending to the carotid bifurcation without narrowing by NASCET criteria. The mid to distal internal carotid artery is patent. No dissection. Right external carotid artery: Unremarkable. No occlusion. Right vertebral artery: The right vertebral artery is small in caliber but is widely patent without stenosis or occlusion. Left common carotid artery: Unremarkable. No occlusion or significant stenosis. No dissection. Left internal carotid artery: Partially calcified atheromatous changes noted involving the proximal left internal carotid artery, extending to the carotid bifurcation without significant stenosis by NASCET criteria. The mid to distal internal carotid artery is patent. No dissection. Left external carotid artery: Unremarkable. No occlusion. Left vertebral artery: The left vertebral artery is dominant and is widely patent. No occlusion or significant stenosis. No dissection. Aorta: The aortic arch is patent. No dissection or aneurysm. NECK: Bones/joints: Unremarkable. No acute fracture. Soft tissues: Unremarkable. Thyroid: There is a hypoattenuating nodule involving the lateral aspect of the right thyroid gland measuring 8 mm. ACR White Paper guidelines (Héctor JK, et al. JACR 2015;12(2):143-50) suggest no follow-up is necessary. Lung apices: Clear. CAROTID STENOSIS REFERENCE USING NASCET CRITERIA: % ICA stenosis = (1 - narrowest ICA diameter/diameter of distal cervical ICA) x 100. Mild - <50% stenosis. Moderate - 50-69% stenosis. Severe - 70-94% stenosis. Near occlusion - 95-99% stenosis. Occluded - 100% stenosis. IMPRESSION: 1. Atheromatous changes involving both carotid bifurcations without significant stenosis by NASCET criteria. The internal and common carotid arteries are otherwise patent. 2. The vertebral arteries are patent bilaterally with the left vertebral artery dominant in size. Electronically signed by: Bradley Coleman MD 01/22/25 23:04 PM Chest X-Ray 01/22/25 23:36 Exam(s): XR CXR 1 VIEW EXAM: XR Chest, 1 View CLINICAL HISTORY: stroke. TECHNIQUE: Frontal view of the chest. COMPARISON: Portable chest single view 11/06/2024 FINDINGS: Lungs: Unremarkable. No consolidation. The pulmonary vasculature demonstrates no significant radiographic abnormality. Pleural space: Unremarkable. No pneumothorax. No large pleural effusion. Heart: The cardiac silhouette is within normal limits, accounting for portable technique. Mediastinum: No significant abnormality identified. The trachea is midline. Bones/joints: Unremarkable. No acute fracture. Tubes, lines and devices: An implanted loop cardiac monitoring device overlies the left heart border, stable. IMPRESSION: No focal consolidation or acute cardiopulmonary process identified. Electronically signed by: Bradley Coleman MD 01/23/25 00:[address] 01/23/25 09:00 CT head/brain wo con CLINICAL HISTORY: 45 years-old Male with follow up to assess for CVA. Acute stroke like symptoms TECHNIQUE: Multiple axial CT images of the head were obtained without contrast. A dose lowering technique was utilized adhering to the principles of ALARA. CT DOSE: 625.8 mGy.cm COMPARISON: Head CT 01/22/2025, 11/06/2024 FINDINGS: No acute intracranial hemorrhage, midline shift, intracranial mass, hydrocephalus, territorial ischemia or abnormal extra-axial collection. Chronic appearing left ponce radiata/lentiform nuclear lacunar infarct. Cerebral vascular calcifications are noted. The calvarium is intact. The paranasal sinuses, mastoid air cells, and middle ear cavities are clear. IMPRESSION: No acute intracranial abnormality. ACT 112: Negative or not required by law. The above report was generated using voice recognition software. It may contain grammatical, syntax or spelling errors. Electronically signed by: Raul Rose M.D. 01/23/2025 9:50 AM Medications Administered Current Inpatient Medications Albuterol (Albuterol Hfa 8 Gm Inhaler) 2 puffs INH QID PRN PRN Reason: Shortness Of Breath Stop: 02/22/25 02:32 Aspirin (Aspirin 81 Mg Ectab) 81 mg PO DAILY [facility] Stop: 02/22/25 08:59 Last Admin: 01/23/25 07:45 Dose: Not Given Atorvastatin Calcium (Atorvastatin 40 Mg Tab) 80 mg PO HS [facility] Stop: 02/22/25 20:59 Famotidine (Famotidine 20 Mg Tab) 20 mg PO HS [facility] Stop: 02/22/25 20:59 Fluticasone/Vilanterol (Fluticasone/Vilanterol 200/25mcg 14 Puffs/Inhaler) 1 puffs INH DAILY [facility] Stop: 02/22/25 08:59 Last Admin: 01/23/25 07:45 Dose: Not Given Sodium Chloride (Nss) 1,000 mls @ 75 mls/hr IV [id number] [facility] Stop: 01/24/25 12:24 Last Admin: 01/23/25 10:11 Dose: 75 mls/hr Acetaminophen (Ofirmev) 1,000 mg in 100 mls @ 400 mls/hr IV Q8H PRN PRN Reason: Pain or Fever Stop: 01/26/25 11:48 Levetiracetam (Levetiracetam 500 Mg Tab) 500 mg PO BID [facility] Stop: 02/22/25 02:32 Last Admin: 01/23/25 02:47 Dose: Not Given Levetiracetam (Levetiracetam 500 Mg/5 Ml Vial) 500 mg IV Q12H [facility] Stop: 02/22/25 02:44 Last Admin: 01/23/25 03:52 Dose: 500 mg Lisinopril (Lisinopril 10 Mg Tab) 30 mg PO DAILY [facility] Stop: 02/22/25 08:59 Last Admin: 01/23/25 07:45 Dose: Not Given Metoprolol Tartrate (Metoprolol Tartrate 50 Mg Tab) 50 mg PO BID [facility] Stop: 02/22/25 08:59 Last Admin: 01/23/25 07:46 Dose: Not Given Miscellaneous Information (Pharmacist Discharge Med Rec Consult) 1 each N/A UD PRN PRN Reason: Consult Stop: 02/22/25 02:32 Nitroglycerin (Nitroglycerin Sl 0.4 Mg/Tab Tab) 0.4 mg SL Q5M PRN PRN Reason: Chest Pain Stop: 02/22/25 02:32 Ondansetron HCl (Ondansetron Inj 2 Mg/Ml 2 Ml Vial) 4 mg IV Q6H PRN PRN Reason: NAUSEA/VOMITING Stop: 02/22/25 02:32 Pantoprazole Sodium (Pantoprazole 40 Mg Tab) 40 mg PO DAILY [facility] Stop: 02/22/25 08:59 Last Admin: 01/23/25 07:46 Dose: Not Given Rivaroxaban (Rivaroxaban 20 Mg Tab) 20 mg PO QDD [facility] Stop: 02/22/25 16:29 Tamsulosin HCl (Tamsulosin Hcl 0.4 Mg Cap) 0.4 mg PO HS [facility] Stop: 02/22/25 20:59 PG Care Time/CCT Total # of Minutes Spent Total Time Spent with Patient: Total time spent is greater than 50% in coordination of care (as documented) at patient's floor/unit and/or counseling patient: Coding Level of Care Code 61261 SUB INP/OBS CARE 05/13MIN Diagnoses Atrial fibrillation I48.91 Hypertension I10 Seizure-like activity R56.9 Hemiparesis affecting left side as late effect of stroke I69.354 Stroke-like symptoms R29.90 Time Spent (min) 25
[2025-01-23] MEDS: ACETAMINOPHEN 1,000 MG/100 ML VIAL IV PRN (12:05)
[2025-01-23] MEDS: SODIUM CHLORIDE 0.9% 250 ML IV ONE (12:49)
--- NOTE | 2025-01-23 12:57 | CT Scan Report ---
CT SCAN OF THE BRAIN WITHOUT IV CONTRAST CLINICAL HISTORY: Altered mental status. Blurry vision. COMPARISON STUDY: Head CT performed earlier today. Head CT and CTA of the head January 22, 2025. TECHNIQUE: Unenhanced axial CT scan of the brain was performed from the vertex to the skull base. A dose lowering technique was utilized adhering to the principles of ALARA. CT DOSE: 625.8 mGy.cm FINDINGS: Brain parenchyma: No acute intracranial hemorrhage, midline shift or mass effect is present. [place]-whi te matter differentiation is preserved. There are no extra-axial fluid collections. There are no find ings to suggest acute dural sinus thrombosis or acute territorial infarct. A 7 mm hypodense focus wit hin left basal ganglia is unchanged from earlier exams. Ventricles, sulci, cisterns: There is no hydrocephalus. The basal cisterns are patent. Calvarium: Unremarkable. Sinuses and mastoids: The visualized paranasal sinuses are clear. The mastoid air cells are well pneu matized. Orbits: The bony orbits are grossly intact. IMPRESSION: No acute intracranial findings. No change in appearance of the brain. ACT 112: Negative or not required by law. Electronically signed by: Keegan Beverly M.D. 01/23/2025 12:56 PM
[2025-01-23] MEDS: ONDANSETRON INJ 2 MG/ML 2 ML VIAL IV PRN (13:15)
[2025-01-23] MEDS: RIVAROXABAN 20 MG TAB PO SCH (15:20)
--- NOTE | 2025-01-23 17:56 | Neurology Consultation ---
Date of Consultation January 23, 2025 Assessment & Plan (1) Stroke-like symptoms: Plan 45-year-old male prisoner presenting with near complete mutism, expressive aphasia, nonsensical dysarthric sounding speech, left-sided weakness. He has had multiple nearly identical presentations to [facility] over the past few months, I saw him for a very similar episode this past July. His examination findings are a bit inconsistent with lack of definitive upper motor neuron findings. He does not have a facial droop. The quality of his speech is quite atypical for stroke, does not sound like a classic expressive aphasia, again nearly mute, but with occasional very dysarthric sounding speech. His speech comprehension seems to be intact as he can follow simple commands. He does not have chronic left-sided weakness apparently related to an old stroke. Interestingly, there is no evidence of a chronic stroke on his multiple head CTs that would result in a left hemiparesis. He does have a chronic left basal ganglia infarct and there may be some chronic ischemic damage within the left occipital lobe that could explain his previous observed right visual field difficulty. His CT angiograms did not reveal any significant stenotic lesion. Unfortunately, he is unable to have a brain MRI. Given that his previous EEG revealed some borderline abnormalities, and given the possibility of seizure disorder in this patient with associated episodes of Al's paralysis, I would recommend increasing his dosage of Keppra to 1000 mg twice daily. He should continue with aspirin, atorvastatin, and Xarelto as prescribed. 3-day ambulatory EEG monitoring could be considered, but may be difficult as he is a [facility] inmate. I am unable to completely exclude functional neurological disorder/conversion disorder in this patient at this time. However, this diagnosis is certainly possible, given that he has a chronic left hemiparesis without evidence of an associated chronic explanatory lesion on multiple head CT's. History of Present Illness Reason for Consultation: Left-sided weakness, stroke versus functional neurological disorder Requesting Physician: Imtiaz Attending Physician: Lorena Nguyen DO History of Present Illness The patient is a 45-year-old male prisoner who is known to me from a previous hospitalization this past July. At that time, he had presented with flaccid weakness of the left upper limb and mutism. He does have a history of atrial fibrillation and continues with Xarelto. He has an ICD that is not MRI compatible. He had unremarkable CT angiography at that time although a CT of the head revealed a chronic left basal ganglia lacunar infarct as well as a small chronic stroke within the right occipital lobe. He has previously been noted to have some chronic left-sided weakness and a right visual field deficit. I considered the possibility of a Al's paralysis in this patient previously. An EEG was borderline abnormal with left greater than right temporal polyspikes, but in the context of excessive movement artifact and a normal background alpha rhythm. Given this inconclusive finding, coupled with his clinical history at that time, I had recommended starting Keppra. This medication was continued. He presented again to the emergency department this past October with similar symptoms, inability to speak and left-sided weakness. The possibility of conversion disorder was considered by the emergency department physician at that time. He was not [facility] the [facility]. However, he presented again to the emergency department overnight with an almost identical presentation, near complete mutism with occasional very dysarthric sounding, but nonsensical speech and weakness of the left arm and leg. He was apparently found facedown in his cell. A CTA of the head and neck again revealed atherosclerotic change, but no significant stenosis. He has had to follow-up head CT is completed today, no evidence of acute or evolving infarct. There is a chronic left basal ganglia infarct that had been seen previously. The patient was examined with guards at bedside. As above, his speech is extremely limited, nearly mute, with occasional nonsensical sounds, comprehension seems to be intact as he can follow simple commands. He is unable to provide any additional details pertaining to his present illness. Allergies Allergy/AdvReac Type Severity Reaction Status Date / Time Iodinated Contrast Media Allergy Severe SCI RECORD Verified 01/22/25 23:06 iodine Allergy Severe Anaphylaxis Verified 01/22/25 23:06 shellfish derived Allergy Severe Anaphylaxis Verified 01/22/25 23:06 aripiprazole [From Abilify] Allergy Unknown ON SCI Verified 01/22/25 23:06 [facility] MED LIST bee venom protein (honey bee) Allergy Unknown ON SCI Verified 01/22/25 23:06 [facility] MED LIST diphenhydramine Allergy Unknown ON SCI Verified 01/22/25 23:06 [From Benadryl Allergy] [facility] MED LIST Fish Containing Products Allergy Unknown ON SCI Verified 01/22/25 23:06 [facility] MED LIST latex Allergy Unknown ON SCI Verified 01/22/25 23:06 [facility] mustard Allergy Unknown ON SCI Verified 01/22/25 23:06 [facility] olanzapine [From Zyprexa] Allergy Unknown ON SCI Verified 01/22/25 23:06 [facility] Penicillins Allergy Unknown ON SCI Verified 01/22/25 23:06 [facility] GRAVY Allergy Unknown ON SCI Uncoded 01/22/25 23:06 [facility] MED LIST Home Medications Medication Instructions Recorded Confirmed Type albuterol sulfate 90 mcg/actuation 2 puff inhalation QID PRN 08/10/24 01/22/25 History aerosol inhaler Shortness Of Breath atorvastatin 80 mg tablet 80 mg PO HS 08/10/24 01/22/25 History famotidine 20 mg tablet 20 mg PO HS 08/10/24 01/22/25 History fluticasone 500 mcg-salmeterol 50 1 inh inhalation BID 08/10/24 01/22/25 History mcg/dose blistr powdr for inhalation (Advair Diskus) nebivolol 20 mg tablet 20 mg PO DAILY 08/10/24 01/22/25 History nitroglycerin 0.4 mg sublingual 0.4 mg sublingual .Q 5 MINUTES X3 08/10/24 01/22/25 History tablet (Nitrostat) PRN Chest Pain pantoprazole 40 mg tablet,delayed 40 mg PO DAILY 08/10/24 01/22/25 History release rivaroxaban 20 mg tablet (Xarelto) 20 mg PO DAILY 08/10/24 01/22/25 History tamsulosin 0.4 mg capsule 0.4 mg PO HS #30 caps 08/14/24 01/22/25 Rx aspirin 81 mg tablet,delayed 81 mg PO DAILY 11/06/24 01/22/25 History release levetiracetam 500 mg tablet 500 mg PO BID 11/06/24 01/22/25 History (Keppra) lisinopril 30 mg tablet 30 mg PO DAILY 01/22/25 01/22/25 History Patient History Medical History (Updated 01/23/25 @ 05:57 by Arpit Kitchen MD) Hemiparesis affecting left side as late effect of stroke Asthma Hyperlipidemia BPH (benign prostatic hyperplasia) Seizure-like activity Stroke-like episode Stroke Hypertension GERD (gastroesophageal reflux disease) Atrial fibrillation Social History Smoking Status: Never smoker Hx Alcohol Use: No Hx Substance Use: No Preferred Language: Moroccan Communication Ability: Effective 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 Beliefs That Will Affect Care: None Current Living Situation: Other Current Living Situation Comment: [place] [facility] Feels Safe at Home: Yes Assistive Devices: Wheelchair Review of Systems Review of Systems: Unobtainable due to cognitive status Exam (Neuro) Constitutional: well developed; no acute distress Eyes: PERRL and EOM intact bilaterally; + abnormal visual field confrontation (Right visual field deficit noted) Neurologic: Oriented to:: Person, Place and Time Memory: Short Term Intact and Remote Intact Attention: Span Intact and Concentration Intact Speech Fluency: Halting and Stuttering Speech Aphasia: negative Aphasia Fund of Knowledge: Current Events, Past History and Vocabulary Cranial Nerves: Normal III, IV, , V, VII, VIII, IX, X, XI and XII; Abnorm II Motor Strength: Hemiplegia Laterality: Left Flaccidity: Arms Laterality: Left and Legs Laterality: Left Muscle Bulk/Involuntary Movements: No Involuntary Movements Sensation: negative Light Touch Intact, Pain/Temperature Intact or Proprioception Intact Coordination: Finger-Nose Abnormal Laterality: Left and Heel-Hlae Abnormal Laterality: Left Deep Tendon Reflexes: Rt Triceps: 2+, Lt Triceps: 3+, Rt Biceps: 2+, Lt Biceps: 3+, Rt Brachioradialis: 2+, Lt Brachioradialis: 3+, Rt Patellar: 2+, Lt Patellar: 3+, Rt Ankle: 1+ and Lt Ankle: 2+ Special Tests: negative Babinski Present Results & Data Vital Signs (Past 12 Hours) Vital Signs Temp Pulse Pulse Resp BP Pulse Ox O2 Del Method 01/23/25 15:18 69 01/23/25 15:06 36.6 C 57 L 18 117/77 95 Room Air 01/23/25 11:03 36.5 C 55 L 113/69 96 Room Air 01/23/25 09:05 59 L 122/85 01/23/25 08:00 57 L 01/23/25 07:12 36.5 C 57 L 20 97/56 L 95 Room Air Laboratory Results WBC 5.41, hemoglobin 15.3, platelet count 159, sodium 139, potassium 4.1, creatinine 0.90, hemoglobin A1c 4.5, calcium 9.5, triglycerides 24, cholesterol 103, LDL 60, HDL 38 Diagnostic Findings An electrocardiogram reveals a normal sinus rhythm. An echocardiogram completed this past July revealed normal left ventricular systolic function, no regional wall motion abnormalities, mild concentric LVH, EF 60 to 65%, borderline left atrial enlargement. Coding Level of Care Code 93427 INT INP/OBS CARE MIN Diagnoses Stroke-like symptoms R29.90 Time Spent (min) 80 Comment Total time includes patient contact, chart review, counseling, note preparation
[2025-01-23] MEDS: ATORVASTATIN 40 MG TAB PO SCH (20:18)
[2025-01-23] MEDS: TAMSULOSIN HCL 0.4 MG CAP PO SCH (20:19)
[2025-01-23] MEDS: FAMOTIDINE 20 MG TAB PO SCH (20:19)
[2025-01-24 06:54] LABS: Hematocrit (blood only) 39.6 % (42.0-52.0); Hemoglobin 13.6 g/dl (14.0-18.0); Immature Granulocytes # (auto) 0.02 K/uL (0.01-0.20); Immature Granulocytes % (auto) 0.2 %; Mean Corpuscular Hemoglobin 30.8 pg (25.0-34.0); Mean Corpuscular Volume 89.6 fL (80.0-100.0); Platelet Count 146 K/uL (130-400); RDW Standard Deviation 42.8 fL (36.4-46.3); Red Blood Count 4.42 M/uL (4.70-6.10); White Blood Count 8.17 K/ul (4.8-10.8)
[2025-01-24 07:34] LABS: Albumin Level 3.7 gm/dl (3.4-5.0); Anion Gap 6.0 (3-11); Blood Urea Nitrogen 21.0 mg/dl (6-23); Calcium 8.6 mg/dl (8.6-10.3); Carbon Dioxide 25.0 mmol/L (21-32); Chloride 110.0 mmol/L (98-107); Creatinine Clr Calc Pharmacy 95.9 ml/min; Glucose 91.0 mg/dl (70-99(Fasting)); Magnesium 2.1 mg/dl (1.7-2.4); Potassium 3.8 mmol/L (3.5-5.1); Sodium 141.0 mmol/L (136-145)
--- NOTE | 2025-01-24 09:33 | Hospitalist Progress Note ---
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 hx of IN (not verifiied)hypertension, GERD, BPH,, asthma, conversion disorder The patient brought to the ED via EMS after being found on the floor at [facility] following an unwitnessed fall. He reports that he got up to go to the bathroom, and fell to the ground, hitting his head. The halfway staff states that his speech was slurred, there was no changes left lower extremity), febrile, his firesetter was at [facility] (Dr. Fonseca, cardiology and Dr. Bird ) he had new left sided upper extremity hemiparesis. His presentation very similar to previous admissions from 08/10-, and was seen in the emergency department on 11/06/2024 for the same symptoms, a stroke alert workup performed, and then was discharged back to the halfway. During admission from 08/10- 08/14/2024, the patient was started on Keppra due to an abnormal EEG. This evening, CT scan of head was negative, CTA head was negative, and CTA neck showed stable bilateral carotid bifurcation mild atheromatous changes that were not considered clinically significant. The patient was referred to the [facility]ist service for further evaluation and treatment. Of note, the patient is not able to get an MRI, due to presence of a non- MRI compatible ICD. dysphagia episode strict NPo, no med. aspiration precaution plan for swallowing video studies today give him keppra IV Strokelike symptoms- started on IV fluid. he's has expressive aphasia, blurry vision, and left side weakness. Patient had an unwitnessed episode at [facility], found on the floor there, that he reports having fallen and hit his head. significant expressive aphasia. aspirin, statin, plavix, permissive HTN He has chronic left lower extremity weakness. It is 2 episodes from 08/10-, and 11/06/2024, he presented with similar symptoms of new left upper extremity weakness, and difficulty with speech/aphasia/slurred speech. CT scan head was negative for acute change, CTA head was negative, CTA of neck showed clinically not significant bilateral carotid bifurcation atheromatous changes. Question of conversion disorder and brought up at previous admission Patient will be placed on stroke without thrombolytic order set, however, symptoms are more consistent with his previous admissions. Patient nods his head that he is able to swallow, and will therefore place him on usual oral medications in the a.m. As noted, I cannot order an MRI due to the patient's ICD being noncompatible Seizure-like activity- Patient had abnormal EEG during admission from 08/10-/, and was placed on Keppra that time. Continue Keppra 500 mg p.o. twice daily Order EEG Consult neurology to see if dosing of Keppra needs to be adjusted Atrial fibrillation/hypertension/chronic anticoagulation with Xarelto- Continue Nebivolol, Xarelto, lisinopril, and aspirin The patient will be admitted to telemetry for serial cardiac enzymes, serial EKG's, cardiac rhythm monitoring and a 2-D echocardiogram with Dopplers. Last echo with ejection fraction 60-65% Hyperlipidemia- Continue atorvastatin Asthma- Continue Advair discus or equivalent, albuterol sulfate HFA 2 puffs 4 times daily as needed GERD-Continue pantoprazole and famotidine BPH-Continue tamsulosin Admission and Anticipated Discharge Date Admission Date: January 23, 2025 Subjective he's has blurry vision, still left side weakness IV fluid increased to permissive HTN plan for video swallowing studies today his pacemaker was inserted at [facility]; Dr. Bird his firesetter is Dr. Fonseca at [facility] Physical Exam Physical Exam: VITALS: Reviewed. WEIGHT/BMI reviewed. GEN: non-toxic appearing neuro: expressive aphasia, able to follow command;; no movement on his left upper and lower extremity AAox3; limited vision on the left side -Head: NC/AT; NECK: Supple, with no masses. CV: RRR, no m/r/g. LUNGS: CTAB, no w/r/c. ABD: Soft, NT/ND, NBS, no masses or organomegaly. : N/A Results & Data Results & Data Vital Signs (Past 12 Hours) Vital Signs Temp Pulse Pulse Resp BP Pulse Ox O2 Del Method 01/24/25 07:23 36.6 C 62 154/74 H 96 Room Air 01/24/25 03:16 36.6 C 57 L 16 102/63 95 Room Air 01/23/25 23:43 57 L 01/23/25 23:18 36.7 C 58 L 14 115/70 95 Room Air Laboratory Results Laboratory Results - last 72 hr 01/22/25 01/22/25 01/23/25 21:45 21:54 06:18 WBC 7.34 5.41 RBC 4.73 4.97 Hgb 14.6 15.3 POC Hgb 13.9 L Hct 42.0 43.6 POC Hct 41 L MCV 88.8 87.7 MCH 30.9 30.8 MCHC 34.8 35.1 RDW Std Deviation 41.3 40.6 RDW Coeff of Margareth 12.8 12.7 Plt Count 152 159 MPV 12.0 11.9 Immature Gran % (Auto) 0.1 0.4 Neut % (Auto) 66.4 86.6 Lymph % (Auto) 20.7 11.1 Boundary % (Auto) 8.9 1.3 Eos % (Auto) 3.1 0.2 Baso % (Auto) 0.8 0.4 Neut # (Auto) 4.87 4.69 Lymph # (Auto) 1.52 0.60 L Boundary # (Auto) 0.65 H 0.07 L Eos # (Auto) 0.23 0.01 Baso # (Auto) 0.06 0.02 Immature Gran # (Auto) 0.01 0.02 PT 11.7 INR 1.1 APTT 28 PTT Ratio 1.0 POC Sodium 141 Sodium 140 139 POC Potassium 3.6 Potassium 3.6 4.1 POC Chloride 103 Chloride 105 107 Carbon Dioxide 30 24 POC Total CO2 29 Anion Gap 5 8 POC Anion Gap 14.0 L POC BUN 14 BUN 13 15 Creatinine 1.11 0.90 POC Creatinine 1.2 Est Cr Clr Drug Dosing Not Reportable 108.6 eGFR 83.45 106.67 BUN/Creatinine Ratio 11.7 16.7 Glucose 127 H 150 H POC Glucose (other) 126 H Estimat Average Glucose 82 Hemoglobin A1c 4.5 Calcium 9.4 9.5 POC Ioniz Calcium Marivel 1.22 Phosphorus 3.4 Magnesium 2.2 Total Bilirubin 0.8 AST 18 ALT 16 Alkaline Phosphatase 75 Troponin I High Sens 4.3 Total Protein 6.9 Albumin 4.0 4.4 Globulin 2.9 Albumin/Globulin Ratio 1.4 Triglycerides 24 Cholesterol 103 LDL Cholesterol, Calc 60 VLDL Cholesterol, Calc 5 HDL Cholesterol 38 Cholesterol/HDL Ratio 2.7 Nasal Screen MRSA (PCR) 01/23/25 01/24/25 Unknown 06:22 WBC 8.17 RBC 4.42 L Hgb 13.6 L POC Hgb Hct 39.6 L POC Hct MCV 89.6 MCH 30.8 MCHC 34.3 RDW Std Deviation 42.8 RDW Coeff of Margareth 13.1 Plt Count 146 MPV 12.2 Immature Gran % (Auto) 0.2 Neut % (Auto) 68.2 Lymph % (Auto) 20.9 Boundary % (Auto) 8.7 Eos % (Auto) 1.5 Baso % (Auto) 0.5 Neut # (Auto) 5.57 Lymph # (Auto) 1.71 Boundary # (Auto) 0.71 H Eos # (Auto) 0.12 Baso # (Auto) 0.04 Immature Gran # (Auto) 0.02 PT INR APTT PTT Ratio POC Sodium Sodium 141 POC Potassium Potassium 3.8 POC Chloride Chloride 110 H Carbon Dioxide 25 POC Total CO2 Anion Gap 6 POC Anion Gap POC BUN BUN 21 Creatinine 1.02 POC Creatinine Est Cr Clr Drug Dosing 95.9 eGFR 91.79 BUN/Creatinine Ratio 20.6 H Glucose 91 POC Glucose (other) Estimat Average Glucose Hemoglobin A1c Calcium 8.6 POC Ioniz Calcium Marivel Phosphorus 3.9 Magnesium 2.1 Total Bilirubin AST ALT Alkaline Phosphatase Troponin I High Sens Total Protein Albumin 3.7 Globulin Albumin/Globulin Ratio Triglycerides Cholesterol LDL Cholesterol, Calc VLDL Cholesterol, Calc HDL Cholesterol Cholesterol/HDL Ratio Nasal Screen MRSA (PCR) Negative Diagnostic Findings Laboratory Results WBC 8.17 K/ul (4.8-10.8) 01/24/25 06:22 RBC 4.42 M/uL (4.70-6.10) L 01/24/25 06:22 Hgb 13.6 g/dl (14.0-18.0) L 01/24/25 06:22 POC Hgb 13.9 g/dl (14.0-18.0) L 01/22/25 21:54 Hct 39.6 % (42.0-52.0) L 01/24/25 06:22 POC Hct 41 % (42-52) L 01/22/25 21:54 MCV 89.6 fL (80.0-100.0) 01/24/25 06:22 MCH 30.8 pg (25.0-34.0) 01/24/25 06:22 MCHC 34.3 g/dL (32.0-36.0) 01/24/25 06: RDW Std Deviation 42.8 fL (36.4-46.3) 01/24/25 06: RDW Coeff of Margareth 13.1 % (11.5-14.5) 01/24/25 06: Plt Count 146 K/uL (130-400) 01/24/25 06: MPV 12.2 fL (9.4-12.4) 01/24/25 06:22 Immature Gran % (Auto) 0.2 % 01/24/25 06: Neut % (Auto) 68.2 % 01/24/25 06:22 Lymph % (Auto) 20.9 % 01/24/25 06:22 Boundary % (Auto) 8.7 % 01/24/25 06:22 Eos % (Auto) 1.5 % 01/24/25 06:22 Baso % (Auto) 0.5 % 01/24/25 06:22 Neut # (Auto) 5.57 K/uL (1.40-6.50) 01/24/25 06:22 Lymph # (Auto) 1.71 K/uL (1.20-3.40) 01/24/25 06:22 Boundary # (Auto) 0.71 K/uL (0.11-0.59) H 01/24/25 06:22 Eos # (Auto) 0.12 K/uL (0.00-0.50) 01/24/25 06:22 Baso # (Auto) 0.04 K/uL (0.00-0.20) 01/24/25 06:22 Immature Gran # (Auto) 0.02 K/uL (0.01-0.20) 01/24/25 06:22 PT 11.7 Seconds (9.0-12.0) 01/22/25 21:45 INR 1.1 (0.9-1.1) 01/22/25 21:45 APTT 28 Seconds (21-31) 01/22/25 21:45 PTT Ratio 1.0 01/22/25 21:45 POC Sodium 141 mmol/L (135-144) 01/22/25 21:54 Sodium 141 mmol/L (136-145) 01/24/25 06:22 POC Potassium 3.6 mmol/L (3.3-5.0) 01/22/25 21:54 Potassium 3.8 mmol/L (3.5-5.1) 01/24/25 06:22 POC Chloride 103 mmol/L (101-112) 01/22/25 21:54 Chloride 110 mmol/L (98-107) H 01/24/25 06:22 Carbon Dioxide 25 mmol/L (21-32) 01/24/25 06:22 POC Total CO2 29 mmol/L (24-31) 01/22/25 21:54 Anion Gap 6 (3-11) 01/24/25 06:22 POC Anion Gap 14.0 mmol/L (16-25) L 01/22/25 21:54 POC BUN 14 mg/dl (7-18) 01/22/25 21:54 BUN 21 mg/dl (6-23) 01/24/25 06:22 Creatinine 1.02 mg/dl (0.6-1.4) 01/24/25 06:22 POC Creatinine 1.2 mg/dl (0.6-1.3) 01/22/25 21:54 Est Cr Clr Drug Dosing 95.9 ml/min 01/24/25 06:22 eGFR 91.79 01/24/25 06:22 BUN/Creatinine Ratio 20.6 (10-20) H 01/24/25 06:22 Glucose 91 mg/dl (70-99(Fasting)) 01/24/25 06:22 POC Glucose (other) 126 mg/dl (70-99) H 01/22/25 21:54 Estimat Average Glucose 82 mg/dl 01/23/25 06:18 Hemoglobin A1c 4.5 % (4.5-5.6) 01/23/25 06:18 Calcium 8.6 mg/dl (8.6-10.3) 01/24/25 06:22 POC Ioniz Calcium Marivel 1.22 mmol/l (1.12-1.32) 01/22/25 21:54 Phosphorus 3.9 mg/dl (2.5-4.9) 01/24/25 06:22 Magnesium 2.1 mg/dl (1.7-2.4) 01/24/25 06:22 Total Bilirubin 0.8 mg/dl (0.2-1.0) 01/22/25 21:45 AST 18 U/L (13-39) 01/22/25 21:45 ALT 16 U/L (7-52) 01/22/25 21:45 Alkaline Phosphatase 75 U/L (34-104) 01/22/25 21:45 Troponin I High Sens 4.3 pg/ml (0-20) 01/22/25 21:45 Total Protein 6.9 gm/dl (6.0-8.3) 01/22/25 21:45 Albumin 3.7 gm/dl (3.4-5.0) 01/24/25 06:22 Globulin 2.9 gm/dl (2.5-4.0) 01/22/25 21:45 Albumin/Globulin Ratio 1.4 (0.9-2) 01/22/25 21:45 Triglycerides 24 mg/dl (0-150) 01/23/25 06:18 Cholesterol 103 mg/dl (0-200) 01/23/25 06:18 LDL Cholesterol, Calc 60 mg/dl 01/23/25 06:18 VLDL Cholesterol, Calc 5 mg/dl (0-30) 01/23/25 06:18 HDL Cholesterol 38 mg/dl 01/23/25 06:18 Cholesterol/HDL Ratio 2.7 (0-5) 01/23/25 06:18 Nasal Screen MRSA (PCR) Negative (Negative) 01/23/25 Unknown Impressions Head CTA 01/22/25 21:53 Exam(s): CTA HEAD With Contrast IV Amt: 115cc opti 320 EXAM: CT Angiography Head With Intravenous Contrast CLINICAL HISTORY: neuro deficit, acute stroke suspected. TECHNIQUE: Axial computed tomographic angiography images of the head with intravenous contrast. CTDI is 19 mGy and DLP is 521 mGy-cm. Automated exposure control was utilized for the study. A dose lowering technique was utilized adhering to the principles of ALARA. MIP reconstructed images were created and reviewed. CONTRAST: Patient received 115cc opti 320 of IV contrast COMPARISON: No relevant prior studies available. FINDINGS: Right internal carotid artery: No acute findings. Atherosclerotic calcification involving the cavernous segment. Intracranial segment is patent with no significant stenosis. No aneurysm. Right anterior cerebral artery: Unremarkable. No occlusion or significant stenosis. No aneurysm. Right middle cerebral artery: Unremarkable. No occlusion or significant stenosis. No aneurysm. Right posterior cerebral artery: Unremarkable. No occlusion or significant stenosis. No aneurysm. Right vertebral artery: Moderate disease involving the small-caliber distal right vertebral artery. No occlusion. Left internal carotid artery: No acute findings. Atherosclerotic calcification involving the cavernous segment. Intracranial segment is patent with no significant stenosis. No aneurysm. Left anterior cerebral artery: Unremarkable. No occlusion or significant stenosis. No aneurysm. Left middle cerebral artery: Unremarkable. No occlusion or significant stenosis. No aneurysm. Left posterior cerebral artery: Unremarkable. No occlusion or significant stenosis. No aneurysm. Left vertebral artery: Atherosclerotic disease involving the left vertebral artery which is dominant. No significant stenosis or occlusion. Basilar artery: Unremarkable. No occlusion or significant stenosis. No aneurysm. Brain: No abnormal parenchymal enhancement identified. IMPRESSION: Atherosclerotic changes. No significant stenosis or occlusion. Negative intracranial CTA examination. Electronically signed by: Bradley Coleman MD 01/22/25 23:07 PM Neck CTA 01/22/25 21:53 Exam(s): CTA NECK With Contrast IV Amt: 115cc opti 320 EXAM: CT Angiography Neck With Intravenous Contrast CLINICAL HISTORY: neuro deficit, acute stroke suspected. TECHNIQUE: Routine carotid CT angiography protocol was performed with intravenous contrast. NASCET criteria using the distal ICAs for comparison were used for evaluation of stenoses. CTDI is 13 mGy and DLP is 520 mGy-cm. Automated exposure control was utilized for the study. A dose lowering technique was utilized adhering to the principles of ALARA. MIP reconstructed images were created and reviewed. CONTRAST: Patient received 115cc opti 320 of IV contrast COMPARISON: None. FINDINGS: VASCULATURE: Right common carotid artery: Unremarkable. No occlusion or significant stenosis. No dissection. Right internal carotid artery: Predominantly noncalcified atheromatous changes involving the proximal right internal carotid artery, extending to the carotid bifurcation without narrowing by NASCET criteria. The mid to distal internal carotid artery is patent. No dissection. Right external carotid artery: Unremarkable. No occlusion. Right vertebral artery: The right vertebral artery is small in caliber but is widely patent without stenosis or occlusion. Left common carotid artery: Unremarkable. No occlusion or significant stenosis. No dissection. Left internal carotid artery: Partially calcified atheromatous changes noted involving the proximal left internal carotid artery, extending to the carotid bifurcation without significant stenosis by NASCET criteria. The mid to distal internal carotid artery is patent. No dissection. Left external carotid artery: Unremarkable. No occlusion. Left vertebral artery: The left vertebral artery is dominant and is widely patent. No occlusion or significant stenosis. No dissection. Aorta: The aortic arch is patent. No dissection or aneurysm. NECK: Bones/joints: Unremarkable. No acute fracture. Soft tissues: Unremarkable. Thyroid: There is a hypoattenuating nodule involving the lateral aspect of the right thyroid gland measuring 8 mm. ACR White Paper guidelines (Anaya JK, et al. JACR 2015;12(2):143-50) suggest no follow-up is necessary. Lung apices: Clear. CAROTID STENOSIS REFERENCE USING NASCET CRITERIA: % ICA stenosis = (1 - narrowest ICA diameter/diameter of distal cervical ICA) x 100. Mild - <50% stenosis. Moderate - 50-69% stenosis. Severe - 70-94% stenosis. Near occlusion - 95-99% stenosis. Occluded - 100% stenosis. IMPRESSION: 1. Atheromatous changes involving both carotid bifurcations without significant stenosis by NASCET criteria. The internal and common carotid arteries are otherwise patent. 2. The vertebral arteries are patent bilaterally with the left vertebral artery dominant in size. Electronically signed by: Bradley Coleman MD 01/22/25 23:04 PM Chest X-Ray 01/22/25 23:36 Exam(s): XR CXR 1 VIEW EXAM: XR Chest, 1 View CLINICAL HISTORY: stroke. TECHNIQUE: Frontal view of the chest. COMPARISON: Portable chest single view 11/06/2024 FINDINGS: Lungs: Unremarkable. No consolidation. The pulmonary vasculature demonstrates no significant radiographic abnormality. Pleural space: Unremarkable. No pneumothorax. No large pleural effusion. Heart: The cardiac silhouette is within normal limits, accounting for portable technique. Mediastinum: No significant abnormality identified. The trachea is midline. Bones/joints: Unremarkable. No acute fracture. Tubes, lines and devices: An implanted loop cardiac monitoring device overlies the left heart border, stable. IMPRESSION: No focal consolidation or acute cardiopulmonary process identified. Electronically signed by: Bradley Coleman MD 01/23/25 00:[address] 01/23/25 12:20 CT SCAN OF THE BRAIN WITHOUT IV CONTRAST CLINICAL HISTORY: Altered mental status. Blurry vision. COMPARISON STUDY: Head CT performed earlier today. Head CT and CTA of the head January 22, 2025. TECHNIQUE: Unenhanced axial CT scan of the brain was performed from the vertex to the skull base. A dose lowering technique was utilized adhering to the principles of ALARA. CT DOSE: 625.8 mGy.cm FINDINGS: Brain parenchyma: No acute intracranial hemorrhage, midline shift or mass effect is present. [place]-white matter differentiation is preserved. There are no extra- axial fluid collections. There are no findings to suggest acute dural sinus thrombosis or acute territorial infarct. A 7 mm hypodense focus within left basal ganglia is unchanged from earlier exams. Ventricles, sulci, cisterns: There is no hydrocephalus. The basal cisterns are patent. Calvarium: Unremarkable. Sinuses and mastoids: The visualized paranasal sinuses are clear. The mastoid air cells are well pneumatized. Orbits: The bony orbits are grossly intact. IMPRESSION: No acute intracranial findings. No change in appearance of the brain. ACT 112: Negative or not required by law. Electronically signed by: Keegan Beverly M.D. 01/23/2025 12:56 PM PG Care Time/CCT Total # of Minutes Spent Total Time Spent with Patient: Total time spent is greater than 50% in coordination of care (as documented) at patient's floor/unit and/or counseling patient: Coding Level of Care Code 68602 SUB INP/OBS CARE 1/25MIN Diagnoses Atrial fibrillation I48.91 Hypertension I10 Seizure-like activity R56.9 Hemiparesis affecting left side as late effect of stroke I69.354 Stroke-like symptoms R29.90 Time Spent (min) 25
--- NOTE | 2025-01-24 10:20 | Electroencephalogram ---
EEG Procedure Note Date of Service January 24, 2025 Start / End Times Start Time: 7:23 AM End Time: 7:43 AM Referring Physician Imtiaz History Seizure-like episode, strokelike symptoms Home Medication List Medication Instructions Recorded Confirmed Type albuterol sulfate 90 mcg/actuation 2 puff inhalation QID PRN 08/10/24 01/22/25 History aerosol inhaler Shortness Of Breath atorvastatin 80 mg tablet 80 mg PO HS 08/10/24 01/22/25 History famotidine 20 mg tablet 20 mg PO HS 08/10/24 01/22/25 History fluticasone 500 mcg-salmeterol 50 1 inh inhalation BID 08/10/24 01/22/25 History mcg/dose blistr powdr for inhalation (Advair Diskus) nebivolol 20 mg tablet 20 mg PO DAILY 08/10/24 01/22/25 History nitroglycerin 0.4 mg sublingual 0.4 mg sublingual .Q 5 MINUTES X3 08/10/24 01/22/25 History tablet (Nitrostat) PRN Chest Pain pantoprazole 40 mg tablet,delayed 40 mg PO DAILY 08/10/24 01/22/25 History release rivaroxaban 20 mg tablet (Xarelto) 20 mg PO DAILY 08/10/24 01/22/25 History tamsulosin 0.4 mg capsule 0.4 mg PO HS #30 caps 08/14/24 01/22/25 Rx aspirin 81 mg tablet,delayed 81 mg PO DAILY 11/06/24 01/22/25 History release levetiracetam 500 mg tablet 500 mg PO BID 11/06/24 01/22/25 History (Keppra) lisinopril 30 mg tablet 30 mg PO DAILY 01/22/25 01/22/25 History Inpatient Medication List Aspirin (Aspirin 81 Mg Ectab) 81 mg PO DAILY MELINA Stop: 02/22/25 08:59 Last Admin: 01/23/25 07:45 Dose: Not Given Documented By: WMK Atorvastatin Calcium (Atorvastatin 40 Mg Tab) 80 mg PO HS MELINA Stop: 02/22/25 20:59 Last Admin: 01/23/25 20:18 Dose: Not Given Documented By: NAB Famotidine (Famotidine 20 Mg Tab) 20 mg PO HS MELINA Stop: 02/22/25 20:59 Last Admin: 01/23/25 20:19 Dose: Not Given Documented By: MARQUES Fluticasone/Vilanterol (Fluticasone/Vilanterol 200/25mcg 14 Puffs/Inhaler) 1 puffs INH DAILY MELINA Stop: 02/22/25 08:59 Last Admin: 01/23/25 07:45 Dose: Not Given Documented By: NAHID Sodium Chloride (Nss) 1,000 mls @ 75 mls/hr IV .[id number] MELINA Stop: 01/24/25 12:24 Last Admin: 01/23/25 23:06 Dose: 75 mls/hr Documented By: Infusion: 01/23/25 23:06 Dose: Infused Documented By: Admin: 01/23/25 10:11 Dose: 75 mls/hr Documented By: NAHID Acetaminophen (Ofirmev) 1,000 mg in 100 mls @ 400 mls/hr IV Q8H PRN PRN Reason: Pain or Fever Stop: 01/26/25 11:48 Last Infusion: 01/24/25 06:40 Dose: Infused Documented By: Admin: 01/24/25 06:24 Dose: 400 mls/hr Documented By: Infusion: 01/23/25 12:20 Dose: Infused Documented By: Admin: 01/23/25 12:05 Dose: 400 mls/hr Documented By: monet Levetiracetam (Levetiracetam 500 Mg Tab) 500 mg PO BID MELINA Stop: 02/22/25 02:32 Last Admin: 01/23/25 02:47 Dose: Not Given Documented By: MARQUES Levetiracetam (Levetiracetam 500 Mg/5 Ml Vial) 500 mg IV Q12H MELINA Stop: 02/22/25 02:44 Last Admin: 01/24/25 03:21 Dose: 500 mg Documented By: Admin: 01/23/25 15:43 Dose: 500 mg Documented By: Admin: 01/23/25 03:52 Dose: 500 mg Documented By: MARQUES Lisinopril (Lisinopril 10 Mg Tab) 30 mg PO DAILY MELINA Stop: 02/22/25 08:59 Last Admin: 01/23/25 07:45 Dose: Not Given Documented By: NAHID Metoprolol Tartrate (Metoprolol Tartrate 50 Mg Tab) 50 mg PO BID MELINA Stop: 02/22/25 08:59 Last Admin: 01/23/25 20:19 Dose: Not Given Documented By: Admin: 01/23/25 07:46 Dose: Not Given Documented By: NAHID Ondansetron HCl (Ondansetron Inj 2 Mg/Ml 2 Ml Vial) 4 mg IV Q6H PRN PRN Reason: NAUSEA/VOMITING Stop: 02/22/25 02:32 Last Admin: 01/23/25 20:06 Dose: 4 mg Documented By: Admin: 01/23/25 13:15 Dose: 4 mg Documented By: NAHID Pantoprazole Sodium (Pantoprazole 40 Mg Tab) 40 mg PO DAILY MELINA Stop: 02/22/25 08:59 Last Admin: 01/23/25 07:46 Dose: Not Given Documented By: NAHID Rivaroxaban (Rivaroxaban 20 Mg Tab) 20 mg PO QDD MELINA Stop: 02/22/25 16:29 Last Admin: 01/23/25 15:20 Dose: Not Given Documented By: NAHID Tamsulosin HCl (Tamsulosin Hcl 0.4 Mg Cap) 0.4 mg PO HS MELINA Stop: 02/22/25 20:59 Last Admin: 01/23/25 20:19 Dose: Not Given Documented By: MARQUES Discontinued Medications Diphenhydramine HCl (Diphenhydramine 50 Mg/Ml Vial) 25 mg IV NOW STA Stop: 01/22/25 22:02 Last Admin: 01/22/25 22:06 Dose: 25 mg Documented By: cain Sodium Chloride (Nss) 250 mls @ 999 mls/hr IV .Q16M ONE Stop: 01/23/25 12:34 Last Infusion: 01/23/25 13:05 Dose: Infused Documented By: Admin: 01/23/25 12:49 Dose: 999 mls/hr Documented By: monet Ioversol (Optiray 320 125ml) 115 ml IV ONCE ONE Stop: 01/22/25 22:17 Last Admin: 01/22/25 22:16 Dose: 115 ml Documented By: KAREN Methylprednisolone (Methylprednisolone 125 Mg/2 Ml Vial) 60 mg IV NOW STA Stop: 01/22/25 22:02 Last Admin: 01/22/25 22:05 Dose: 60 mg Documented By: cain Description This is a 21 electrode EEG with a single channel dedicated to limited EKG. The electrodes were placed in accordance with the International 10-20 system. There is a posterior dominant rhythm of 10 Hz which is symmetrically distributed and attenuates with eye opening. There is a normal anterior posterior organization. Photic stimulation is unremarkable. Hyperventilation is not performed. There is a symmetric frontal beta rhythm. There is excessive movement artifact throughout the study. There are occasional left frontotemporal sharps. Interpretation Borderline abnormal awake/drowsy EEG with intermittent left frontotemporal sharps potentially indicating an increased risk for seizures. [facility] EEG Procedure Codes Indication for Procedure (1) Stroke-like symptoms: (2) Seizure-like activity: Neurology Neurology: 49893 EEG include record awake & drowsy
--- NOTE | 2025-01-24 12:02 | Fluoroscopy Report ---
FL video swallow CLINICAL HISTORY: r/o aspiration. TECHNIQUE: Video fluoroscopic evaluation of swallowing was performed in the AP and lateral projection s by the speech pathology staff. The patient is fed nectar-thick and thin liquid barium, a barium coa sean wafer, and barium pudding. FLUOROSCOPY TIME: 1 minute 14 seconds. COMPARISON: None FINDINGS: No aspiration was demonstrated during the exam. There is vallecular residual. IMPRESSION: No aspiration seen. ACT 112: Negative or not required by law. Electronically signed by: Rolan Germain M.D. 01/24/2025 12:01 PM
[2025-01-24] MEDS: SODIUM CHLORIDE 0.9% 1,000 ML IV SCH (17:04)
[2025-01-25 06:22] LABS: Hematocrit (blood only) 36.7 % (42.0-52.0); Hemoglobin 12.3 g/dl (14.0-18.0); Immature Granulocytes # (auto) 0.01 K/uL (0.01-0.20); Immature Granulocytes % (auto) 0.2 %; Mean Corpuscular Hemoglobin 29.8 pg (25.0-34.0); Mean Corpuscular Volume 88.9 fL (80.0-100.0); Platelet Count 117 K/uL (130-400); RDW Standard Deviation 41.5 fL (36.4-46.3); Red Blood Count 4.13 M/uL (4.70-6.10); White Blood Count 6.10 K/ul (4.8-10.8)
[2025-01-25 06:38] LABS: Albumin Level 3.4 gm/dl (3.4-5.0); Anion Gap 5.0 (3-11); Blood Urea Nitrogen 15.0 mg/dl (6-23); Calcium 8.4 mg/dl (8.6-10.3); Carbon Dioxide 24.0 mmol/L (21-32); Chloride 110.0 mmol/L (98-107); Creatinine Clr Calc Pharmacy 123.7 ml/min; Glucose 88.0 mg/dl (70-99(Fasting)); Magnesium 1.9 mg/dl (1.7-2.4); Potassium 3.8 mmol/L (3.5-5.1); Sodium 139.0 mmol/L (136-145)
[2025-01-25] MEDS: SODIUM CHLORIDE 0.9% 1,000 ML IV SCH (08:28)
--- NOTE | 2025-01-25 12:33 | Hospitalist Progress Note ---
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 hx of CT (not verifiied)hypertension, GERD, BPH,, asthma, conversion disorder The patient brought to the ED via EMS after being found on the floor at [facility] following an unwitnessed fall. He reports that he got up to go to the bathroom, and fell to the ground, hitting his head. The senior care staff states that his speech was slurred, there was no changes left lower extremity), febrile, his loan service officer was at [facility] (Dr. Fonseca, cardiology and Dr. Bird ) he had new left sided upper extremity hemiparesis. His presentation very similar to previous admissions from 08/10-, and was seen in the emergency department on 11/06/2024 for the same symptoms, a stroke alert workup performed, and then was discharged back to the senior care. During admission from 08/10- 08/14/2024, the patient was started on Keppra due to an abnormal EEG. This evening, CT scan of head was negative, CTA head was negative, and CTA neck showed stable bilateral carotid bifurcation mild atheromatous changes that were not considered clinically significant. [facility]. Of note, the patient is not able to get an MRI, due to presence of a non- MRI compatible ICD. dysphagia episode strict NPo, no med. aspiration precaution plan for swallowing video studies today give him keppra IV Strokelike symptoms-(expressive aphasia, left side weakness, blurry vision ) started on IV fluid. his expressive aphasia is improving, his left side blurry vision have no improvement he still has left side weakness, (unable to wringle his toe and finger) Patient had an unwitnessed episode at [facility], found on the floor there, that he reports having fallen and hit his head. significant expressive aphasia. aspirin, statin, plavix, permissive HTN He has chronic left lower extremity weakness. It is 2 episodes from 08/10-, and 11/06/2024, he presented with similar symptoms of new left upper extremity weakness, and difficulty with speech/aphasia/slurred speech. CT scan head was negative , CTA head was negative, CTA of neck showed clinically not significant bilateral carotid bifurcation atheromatous changes. Question of conversion disorder and brought up at previous admission Patient will be placed on stroke without thrombolytic order set, however, symptoms are more consistent with his previous admissions. Patient nods his head that he is able to swallow, and will therefore place him on usual oral medications in the a.m. As noted, I cannot order an MRI due to the patient's ICD being noncompatible Seizure-like activity- Patient had abnormal EEG during admission from 08/10-, and was placed on Keppra that time. Continue Keppra 500 mg p.o. twice daily keppra dose increased to 1000mg BID neuro requested 3 days EEG Atrial fibrillation/hypertension/chronic anticoagulation with Xarelto- Continue Nebivolol, Xarelto, lisinopril, and aspirin The patient will be admitted to telemetry for serial cardiac enzymes, serial EKG's, cardiac rhythm monitoring and a 2-D echocardiogram with Dopplers. Last echo on with ejection fraction 60-65% Hyperlipidemia- Continue atorvastatin Asthma- Continue Advair discus or equivalent, albuterol sulfate HFA 2 puffs 4 times daily as needed GERD-Continue pantoprazole and famotidine BPH-Continue tamsulosin Admission and Anticipated Discharge Date Admission Date: January 23, 2025 Subjective he still has left side weakness low and left side weakness his expressive aphasia is improving he will need ongoing inpatient care for permissive HTN IV fluid I called [facility] loan service officer yesterday but was went to voicewail per the patient, his pacemaker is not MRI compatible Physical Exam Physical Exam: VITALS: Reviewed. WEIGHT/BMI reviewed. GEN: Healthy appearing, well-developed, NAD. Neuro: decrease strength and sensation on the left side; unable to wringle finger to toes no vision on the left side. AAox3; able to speak in short sentence HEENT: pupil reactive to light -Head: NC/AT; CV: RRR, no m/r/g. LUNGS: CTAB, no w/r/c. ABD: Soft, NT/ND, NBS, no masses or organomegaly. SKIN: Warm, well perfused. No skin rashes or abnormal lesions. MSK: No deformities, Normal gait. EXT: No clubbing, cyanosis, or edema. Results & Data Results & Data Vital Signs (Past 12 Hours) Vital Signs Temp Pulse Pulse Resp BP Pulse Ox O2 Del Method 01/25/25 08:45 36.7 C 87 19 125/72 94 Room Air 01/25/25 07:00 63 01/25/25 03:45 61 01/25/25 01:22 36.6 C 71 18 108/70 93 Room Air Laboratory Results Laboratory Results - last 72 hr 01/22/25 01/22/25 01/23/25 21:45 21:54 06:18 WBC 7.34 5.41 RBC 4.73 4.97 Hgb 14.6 15.3 POC Hgb 13.9 L Hct 42.0 43.6 POC Hct 41 L MCV 88.8 87.7 MCH 30.9 30.8 MCHC 34.8 35.1 RDW Std Deviation 41.3 40.6 RDW Coeff of Margareth 12.8 12.7 Plt Count 152 159 MPV 12.0 11.9 Immature Gran % (Auto) 0.1 0.4 Neut % (Auto) 66.4 86.6 Lymph % (Auto) 20.7 11.1 [place] % (Auto) 8.9 1.3 Eos % (Auto) 3.1 0.2 Baso % (Auto) 0.8 0.4 Neut # (Auto) 4.87 4.69 Lymph # (Auto) 1.52 0.60 L [place] # (Auto) 0.65 H 0.07 L Eos # (Auto) 0.23 0.01 Baso # (Auto) 0.06 0.02 Immature Gran # (Auto) 0.01 0.02 PT 11.7 INR 1.1 APTT 28 PTT Ratio 1.0 POC Sodium 141 Sodium 140 139 POC Potassium 3.6 Potassium 3.6 4.1 POC Chloride 103 Chloride 105 107 Carbon Dioxide 30 24 POC Total CO2 29 Anion Gap 5 8 POC Anion Gap 14.0 L POC BUN 14 BUN 13 15 Creatinine 1.11 0.90 POC Creatinine 1.2 Est Cr Clr Drug Dosing Not Reportable 108.6 eGFR 83.45 106.67 BUN/Creatinine Ratio 11.7 16.7 Glucose 127 H 150 H POC Glucose (other) 126 H Estimat Average Glucose 82 Hemoglobin A1c 4.5 Calcium 9.4 9.5 POC Ioniz Calcium Marivel 1.22 Phosphorus 3.4 Magnesium 2.2 Total Bilirubin 0.8 AST 18 ALT 16 Alkaline Phosphatase 75 Troponin I High Sens 4.3 Total Protein 6.9 Albumin 4.0 4.4 Globulin 2.9 Albumin/Globulin Ratio 1.4 Triglycerides 24 Cholesterol 103 LDL Cholesterol, Calc 60 VLDL Cholesterol, Calc 5 HDL Cholesterol 38 Cholesterol/HDL Ratio 2.7 Nasal Screen MRSA (PCR) 01/23/25 01/24/25 01/25/25 Unknown 06:22 05:48 WBC 8.17 6.10 RBC 4.42 L 4.13 L Hgb 13.6 L 12.3 L POC Hgb Hct 39.6 L 36.7 L POC Hct MCV 89.6 88.9 MCH 30.8 29.8 MCHC 34.3 33.5 RDW Std Deviation 42.8 41.5 RDW Coeff of Margareth 13.1 12.8 Plt Count 146 117 L MPV 12.2 11.9 Immature Gran % (Auto) 0.2 0.2 Neut % (Auto) 68.2 62.0 Lymph % (Auto) 20.9 25.1 [place] % (Auto) 8.7 8.4 Eos % (Auto) 1.5 3.6 Baso % (Auto) 0.5 0.7 Neut # (Auto) 5.57 3.79 Lymph # (Auto) 1.71 1.53 [place] # (Auto) 0.71 H 0.51 Eos # (Auto) 0.12 0.22 Baso # (Auto) 0.04 0.04 Immature Gran # (Auto) 0.02 0.01 PT INR APTT PTT Ratio POC Sodium Sodium 141 139 POC Potassium Potassium 3.8 3.8 POC Chloride Chloride 110 H 110 H Carbon Dioxide 25 24 POC Total CO2 Anion Gap 6 5 POC Anion Gap POC BUN BUN 21 15 Creatinine 1.02 0.79 POC Creatinine Est Cr Clr Drug Dosing 95.9 123.7 eGFR 91.79 110.95 BUN/Creatinine Ratio 20.6 H 19.0 Glucose 91 88 POC Glucose (other) Estimat Average Glucose Hemoglobin A1c Calcium 8.6 8.4 L POC Ioniz Calcium Marivel Phosphorus 3.9 3.6 Magnesium 2.1 1.9 Total Bilirubin AST ALT Alkaline Phosphatase Troponin I High Sens Total Protein Albumin 3.7 3.4 Globulin Albumin/Globulin Ratio Triglycerides Cholesterol LDL Cholesterol, Calc VLDL Cholesterol, Calc HDL Cholesterol Cholesterol/HDL Ratio Nasal Screen MRSA (PCR) Negative Diagnostic Findings Laboratory Results WBC 6.10 K/ul (4.8-10.8) 01/25/25 05:48 RBC 4.13 M/uL (4.70-6.10) L 01/25/25 05:48 Hgb 12.3 g/dl (14.0-18.0) L 01/25/25 05:48 POC Hgb 13.9 g/dl (14.0-18.0) L 01/22/25 21:54 Hct 36.7 % (42.0-52.0) L 01/25/25 05:48 POC Hct 41 % (42-52) L 01/22/25 21:54 MCV 88.9 fL (80.0-100.0) 01/25/25 05:48 MCH 29.8 pg (25.0-34.0) 01/25/25 05:48 MCHC 33.5 g/dL (32.0-36.0) 01/25/25 05:48 RDW Std Deviation 41.5 fL (36.4-46.3) 01/25/25 05:48 RDW Coeff of Margareth 12.8 % (11.5-14.5) 01/25/25 05:48 Plt Count 117 K/uL (130-400) L 01/25/25 05:48 MPV 11.9 fL (9.4-12.4) 01/25/25 05:48 Immature Gran % (Auto) 0.2 % 01/25/25 05:48 Neut % (Auto) 62.0 % 01/25/25 05:48 Lymph % (Auto) 25.1 % 01/25/25 05:48 [place] % (Auto) 8.4 % 01/25/25 05:48 Eos % (Auto) 3.6 % 01/25/25 05:48 Baso % (Auto) 0.7 % 01/25/25 05:48 Neut # (Auto) 3.79 K/uL (1.40-6.50) 01/25/25 05:48 Lymph # (Auto) 1.53 K/uL (1.20-3.40) 01/25/25 05:48 [place] # (Auto) 0.51 K/uL (0.11-0.59) 01/25/25 05:48 Eos # (Auto) 0.22 K/uL (0.00-0.50) 01/25/25 05:48 Baso # (Auto) 0.04 K/uL (0.00-0.20) 01/25/25 05:48 Immature Gran # (Auto) 0.01 K/uL (0.01-0.20) 01/25/25 05:48 PT 11.7 Seconds (9.0-12.0) 01/22/25 21:45 INR 1.1 (0.9-1.1) 01/22/25 21:45 APTT 28 Seconds (21-31) 01/22/25 21:45 PTT Ratio 1.0 01/22/25 21:45 POC Sodium 141 mmol/L (135-144) 01/22/25 21:54 Sodium 139 mmol/L (136-145) 01/25/25 05:48 POC Potassium 3.6 mmol/L (3.3-5.0) 01/22/25 21:54 Potassium 3.8 mmol/L (3.5-5.1) 01/25/25 05:48 POC Chloride 103 mmol/L (101-112) 01/22/25 21:54 Chloride 110 mmol/L (98-107) H 01/25/25 05:48 Carbon Dioxide 24 mmol/L (21-32) 01/25/25 05:48 POC Total CO2 29 mmol/L (24-31) 01/22/25 21:54 Anion Gap 5 (3-11) 01/25/25 05:48 POC Anion Gap 14.0 mmol/L (16-25) L 01/22/25 21:54 POC BUN 14 mg/dl (7-18) 01/22/25 21:54 BUN 15 mg/dl (6-23) 01/25/25 05:48 Creatinine 0.79 mg/dl (0.6-1.4) 01/25/25 05:48 POC Creatinine 1.2 mg/dl (0.6-1.3) 01/22/25 21:54 Est Cr Clr Drug Dosing 123.7 ml/min 01/25/25 05:48 eGFR 110.95 01/25/25 05:48 BUN/Creatinine Ratio 19.0 (10-20) 01/25/25 05:48 Glucose 88 mg/dl (70-99(Fasting)) 01/25/25 05:48 POC Glucose (other) 126 mg/dl (70-99) H 01/22/25 21:54 Estimat Average Glucose 82 mg/dl 01/23/25 06:18 Hemoglobin A1c 4.5 % (4.5-5.6) 01/23/25 06:18 Calcium 8.4 mg/dl (8.6-10.3) L 01/25/25 05:48 POC Ioniz Calcium Marivel 1.22 mmol/l (1.12-1.32) 01/22/25 21:54 Phosphorus 3.6 mg/dl (2.5-4.9) 01/25/25 05:48 Magnesium 1.9 mg/dl (1.7-2.4) 01/25/25 05:48 Total Bilirubin 0.8 mg/dl (0.2-1.0) 01/22/25 21:45 AST 18 U/L (13-39) 01/22/25 21:45 ALT 16 U/L (7-52) 01/22/25 21:45 Alkaline Phosphatase 75 U/L (34-104) 01/22/25 21:45 Troponin I High Sens 4.3 pg/ml (0-20) 01/22/25 21:45 Total Protein 6.9 gm/dl (6.0-8.3) 01/22/25 21:45 Albumin 3.4 gm/dl (3.4-5.0) 01/25/25 05:48 Globulin 2.9 gm/dl (2.5-4.0) 01/22/25 21:45 Albumin/Globulin Ratio 1.4 (0.9-2) 01/22/25 21:45 Triglycerides 24 mg/dl (0-150) 01/23/25 06:18 Cholesterol 103 mg/dl (0-200) 01/23/25 06:18 LDL Cholesterol, Calc 60 mg/dl 01/23/25 06:18 VLDL Cholesterol, Calc 5 mg/dl (0-30) 01/23/25 06:18 HDL Cholesterol 38 mg/dl 01/23/25 06:18 Cholesterol/HDL Ratio 2.7 (0-5) 01/23/25 06:18 Nasal Screen MRSA (PCR) Negative (Negative) 01/23/25 Unknown Impressions Head CTA 01/22/25 21:53 Exam(s): CTA HEAD With Contrast IV Amt: 115cc opti 320 EXAM: CT Angiography Head With Intravenous Contrast CLINICAL HISTORY: neuro deficit, acute stroke suspected. TECHNIQUE: Axial computed tomographic angiography images of the head with intravenous contrast. CTDI is 19 mGy and DLP is 521 mGy-cm. Automated exposure control was utilized for the study. A dose lowering technique was utilized adhering to the principles of ALARA. MIP reconstructed images were created and reviewed. CONTRAST: Patient received 115cc opti 320 of IV contrast COMPARISON: No relevant prior studies available. FINDINGS: Right internal carotid artery: No acute findings. Atherosclerotic calcification involving the cavernous segment. Intracranial segment is patent with no significant stenosis. No aneurysm. Right anterior cerebral artery: Unremarkable. No occlusion or significant stenosis. No aneurysm. Right middle cerebral artery: Unremarkable. No occlusion or significant stenosis. No aneurysm. Right posterior cerebral artery: Unremarkable. No occlusion or significant stenosis. No aneurysm. Right vertebral artery: Moderate disease involving the small-caliber distal right vertebral artery. No occlusion. Left internal carotid artery: No acute findings. Atherosclerotic calcification involving the cavernous segment. Intracranial segment is patent with no significant stenosis. No aneurysm. Left anterior cerebral artery: Unremarkable. No occlusion or significant stenosis. No aneurysm. Left middle cerebral artery: Unremarkable. No occlusion or significant stenosis. No aneurysm. Left posterior cerebral artery: Unremarkable. No occlusion or significant stenosis. No aneurysm. Left vertebral artery: Atherosclerotic disease involving the left vertebral artery which is dominant. No significant stenosis or occlusion. Basilar artery: Unremarkable. No occlusion or significant stenosis. No aneurysm. Brain: No abnormal parenchymal enhancement identified. IMPRESSION: Atherosclerotic changes. No significant stenosis or occlusion. Negative intracranial CTA examination. Electronically signed by: Bradley Coleman MD 01/22/25 23:07 PM Neck CTA 01/22/25 21:53 Exam(s): CTA NECK With Contrast IV Amt: 115cc opti 320 EXAM: CT Angiography Neck With Intravenous Contrast CLINICAL HISTORY: neuro deficit, acute stroke suspected. TECHNIQUE: Routine carotid CT angiography protocol was performed with intravenous contrast. NASCET criteria using the distal ICAs for comparison were used for evaluation of stenoses. CTDI is 13 mGy and DLP is 520 mGy-cm. Automated exposure control was utilized for the study. A dose lowering technique was utilized adhering to the principles of ALARA. MIP reconstructed images were created and reviewed. CONTRAST: Patient received 115cc opti 320 of IV contrast COMPARISON: None. FINDINGS: VASCULATURE: Right common carotid artery: Unremarkable. No occlusion or significant stenosis. No dissection. Right internal carotid artery: Predominantly noncalcified atheromatous changes involving the proximal right internal carotid artery, extending to the carotid bifurcation without narrowing by NASCET criteria. The mid to distal internal carotid artery is patent. No dissection. Right external carotid artery: Unremarkable. No occlusion. Right vertebral artery: The right vertebral artery is small in caliber but is widely patent without stenosis or occlusion. Left common carotid artery: Unremarkable. No occlusion or significant stenosis. No dissection. Left internal carotid artery: Partially calcified atheromatous changes noted involving the proximal left internal carotid artery, extending to the carotid bifurcation without significant stenosis by NASCET criteria. The mid to distal internal carotid artery is patent. No dissection. Left external carotid artery: Unremarkable. No occlusion. Left vertebral artery: The left vertebral artery is dominant and is widely patent. No occlusion or significant stenosis. No dissection. Aorta: The aortic arch is patent. No dissection or aneurysm. NECK: Bones/joints: Unremarkable. No acute fracture. Soft tissues: Unremarkable. Thyroid: There is a hypoattenuating nodule involving the lateral aspect of the right thyroid gland measuring 8 mm. ACR White Paper guidelines (Anaya JK, et al. JACR 2015;12(2):143-50) suggest no follow-up is necessary. Lung apices: Clear. CAROTID STENOSIS REFERENCE USING NASCET CRITERIA: % ICA stenosis = (1 - narrowest ICA diameter/diameter of distal cervical ICA) x 100. Mild - <50% stenosis. Moderate - 50-69% stenosis. Severe - 70-94% stenosis. Near occlusion - 95-99% stenosis. Occluded - 100% stenosis. IMPRESSION: 1. Atheromatous changes involving both carotid bifurcations without significant stenosis by NASCET criteria. The internal and common carotid arteries are otherwise patent. 2. The vertebral arteries are patent bilaterally with the left vertebral artery dominant in size. Electronically signed by: Bradley Coleman MD 01/22/25 23:04 PM Chest X-Ray 01/22/25 23:36 Exam(s): XR CXR 1 VIEW EXAM: XR Chest, 1 View CLINICAL HISTORY: stroke. TECHNIQUE: Frontal view of the chest. COMPARISON: Portable chest single view 11/06/2024 FINDINGS: Lungs: Unremarkable. No consolidation. The pulmonary vasculature demonstrates no significant radiographic abnormality. Pleural space: Unremarkable. No pneumothorax. No large pleural effusion. Heart: The cardiac silhouette is within normal limits, accounting for portable technique. Mediastinum: No significant abnormality identified. The trachea is midline. Bones/joints: Unremarkable. No acute fracture. Tubes, lines and devices: An implanted loop cardiac monitoring device overlies the left heart border, stable. IMPRESSION: No focal consolidation or acute cardiopulmonary process identified. Electronically signed by: Bradley Coleman MD 01/23/25 00:[address] 01/23/25 12:20 CT SCAN OF THE BRAIN WITHOUT IV CONTRAST CLINICAL HISTORY: Altered mental status. Blurry vision. COMPARISON STUDY: Head CT performed earlier today. Head CT and CTA of the head January 22, 2025. TECHNIQUE: Unenhanced axial CT scan of the brain was performed from the vertex to the skull base. A dose lowering technique was utilized adhering to the principles of ALARA. CT DOSE: 625.8 mGy.cm FINDINGS: Brain parenchyma: No acute intracranial hemorrhage, midline shift or mass effect is present. [place]-white matter differentiation is preserved. There are no extra- axial fluid collections. There are no findings to suggest acute dural sinus thrombosis or acute territorial infarct. A 7 mm hypodense focus within left basal ganglia is unchanged from earlier exams. Ventricles, sulci, cisterns: There is no hydrocephalus. The basal cisterns are patent. Calvarium: Unremarkable. Sinuses and mastoids: The visualized paranasal sinuses are clear. The mastoid air cells are well pneumatized. Orbits: The bony orbits are grossly intact. IMPRESSION: No acute intracranial findings. No change in appearance of the brain. ACT 112: Negative or not required by law. Electronically signed by: Keegan Beverly M.D. 01/23/2025 12:56 PM Videofluoroscopic Swallow 01/24/25 10:30 FL video swallow CLINICAL HISTORY: r/o aspiration. TECHNIQUE: Video fluoroscopic evaluation of swallowing was performed in the AP and lateral projections by the speech pathology staff. The patient is fed nectar-thick and thin liquid barium, a barium coated wafer, and barium pudding. FLUOROSCOPY TIME: 1 minute 14 seconds. COMPARISON: None FINDINGS: No aspiration was demonstrated during the exam. There is vallecular residual. IMPRESSION: No aspiration seen. ACT 112: Negative or not required by law. Electronically signed by: Rolan Germain M.D. 01/24/2025 12:01 PM Medications Administered Current Inpatient Medications Albuterol (Albuterol Hfa 8 Gm Inhaler) 2 puffs INH QID PRN PRN Reason: Shortness Of Breath Stop: 02/22/25 02:32 Aspirin (Aspirin 81 Mg Ectab) 81 mg PO DAILY MELINA Stop: 02/22/25 08:59 Last Admin: 01/25/25 08:25 Dose: 81 mg Atorvastatin Calcium (Atorvastatin 40 Mg Tab) 80 mg PO HS MELINA Stop: 02/22/25 20:59 Last Admin: 01/24/25 20:16 Dose: 80 mg Famotidine (Famotidine 20 Mg Tab) 20 mg PO HS MELINA Stop: 02/22/25 20:59 Last Admin: 01/24/25 20:17 Dose: 20 mg Fluticasone/Vilanterol (Fluticasone/Vilanterol 200/25mcg 14 Puffs/Inhaler) 1 puffs INH DAILY MELINA Stop: 02/22/25 08:59 Last Admin: 01/25/25 08:26 Dose: 1 puffs Acetaminophen (Ofirmev) 1,000 mg in 100 mls @ 400 mls/hr IV Q8H PRN PRN Reason: Pain or Fever Stop: 01/26/25 11:48 Last Infusion: 01/24/25 06:40 Dose: Infused Sodium Chloride (Nss) 1,000 mls @ 150 mls/hr IV .Q6H40M MELINA Stop: 01/25/25 15:59 Last Admin: 01/25/25 06:26 Dose: 150 mls/hr Sodium Chloride (Nss) 1,000 mls @ 150 mls/hr IV .Q6H40M MELINA Stop: 01/27/25 08:14 Last Admin: 01/25/25 08:28 Dose: 150 mls/hr Levetiracetam (Levetiracetam 500 Mg Tab) 500 mg PO BID MELINA Stop: 02/22/25 02:32 Last Admin: 01/23/25 02:47 Dose: Not Given Levetiracetam (Levetiracetam 500 Mg/5 Ml Vial) 500 mg IV Q12H MELINA Stop: 02/22/25 02:44 Last Admin: 01/25/25 03:54 Dose: 500 mg Lisinopril (Lisinopril 10 Mg Tab) 30 mg PO DAILY MELINA Stop: 02/22/25 08:59 Last Admin: 01/25/25 08:25 Dose: 30 mg Metoprolol Tartrate (Metoprolol Tartrate 50 Mg Tab) 50 mg PO BID MELINA Stop: 02/22/25 08:59 Last Admin: 01/25/25 08:25 Dose: 50 mg Nitroglycerin (Nitroglycerin Sl 0.4 Mg/Tab Tab) 0.4 mg SL Q5M PRN PRN Reason: Chest Pain Stop: 02/22/25 02:32 Ondansetron HCl (Ondansetron Inj 2 Mg/Ml 2 Ml Vial) 4 mg IV Q6H PRN PRN Reason: NAUSEA/VOMITING Stop: 02/22/25 02:32 Last Admin: 01/24/25 12:10 Dose: 4 mg Pantoprazole Sodium (Pantoprazole 40 Mg Tab) 40 mg PO DAILY MELINA Stop: 02/22/25 08:59 Last Admin: 01/25/25 08:26 Dose: 40 mg Rivaroxaban (Rivaroxaban 20 Mg Tab) 20 mg PO QDD MELINA Stop: 02/22/25 16:29 Last Admin: 01/24/25 15:18 Dose: 20 mg Tamsulosin HCl (Tamsulosin Hcl 0.4 Mg Cap) 0.4 mg PO HS MELINA Stop: 02/22/25 20:59 Last Admin: 01/24/25 20:16 Dose: 0.4 mg PG Care Time/CCT Total # of Minutes Spent Total Time Spent with Patient: Total time spent is greater than 50% in coordination of care (as documented) at patient's floor/unit and/or counseling patient: Coding Level of Care Code 83334 SUB INP/OBS CARE 25MIN Diagnoses Atrial fibrillation I48.91 Hypertension I10 Seizure-like activity R56.9 Hemiparesis affecting left side as late effect of stroke I69.354 Stroke-like symptoms R29.90 Time Spent (min) 25
--- NOTE | 2025-01-25 16:13 | Communication Note ---
Date of Service: January 25, 2025 I spoke with device clinics at [facility], he has loop record implanted on Feb 2022 [employer], per pacemaker his name under [facility]MR is Anibal Loyola (birthday 01/23/1976), which is different from 1979 we confirmed his record by they sharing the same social security number according to the pacemaker clinics the [employer] loop record is compatible with both 1.5 T and 3.0 T MRI in addition. he does not has a pacemaker and his most recent CXR also does not has pacemaker
[2025-01-26 06:30] LABS: Hematocrit (blood only) 36.6 % (42.0-52.0); Hemoglobin 12.6 g/dl (14.0-18.0); Mean Corpuscular Hemoglobin 30.5 pg (25.0-34.0); Mean Corpuscular Volume 88.6 fL (80.0-100.0); Platelet Count 140 K/uL (130-400); RDW Standard Deviation 41.1 fL (36.4-46.3); Red Blood Count 4.13 M/uL (4.70-6.10); White Blood Count 7.28 K/ul (4.8-10.8)
[2025-01-26 07:02] LABS: Alanine Aminotransferase 13.0 U/L (7-52); Albumin Globulin Ratio 1.6 (0.9-2); Albumin Level 3.5 gm/dl (3.4-5.0); Alkaline Phosphatase 66.0 U/L (34-104); Anion Gap 5.0 (3-11); Bilirubin,Total 0.9 mg/dl (0.2-1.0); Blood Urea Nitrogen 11.0 mg/dl (6-23); Calcium 8.7 mg/dl (8.6-10.3); Carbon Dioxide 26.0 mmol/L (21-32); Chloride 109.0 mmol/L (98-107); Creatinine Clr Calc Pharmacy 122.1 ml/min; Globulin 2.2 gm/dl (2.5-4.0); Glucose 94.0 mg/dl (70-99(Fasting)); Magnesium 2.0 mg/dl (1.7-2.4); Potassium 3.8 mmol/L (3.5-5.1); Sodium 140.0 mmol/L (136-145); Total Protein 5.7 gm/dl (6.0-8.3)
--- NOTE | 2025-01-26 08:51 | XRay Report ---
XR KUB pre MRI CLINICAL HISTORY: r/o device placement, hx of loop record, COMPARISON STUDY: Chest x-ray of 01/22/[address] 01/23/2025 FINDINGS: Left-sided cardiac loop recorder is present on the prior chest x-ray and appropriately posi tioned. There is no metallic foreign body or metallic medical assistant dermatology at the abdomen or pelvis. No bow el obstruction. No metallic foreign body seen at the orbits on the prior head CT. IMPRESSION: Cleared for MRI. ACT 112: Negative or not required by law. Electronically signed by: Rolan Germain M.D. 01/26/2025 8:49 AM
[2025-01-26] MEDS ORDERED: LORazepam Inj 0.5 MG in SYRINGE 0.25 ML IV PRN (09:16)
--- NOTE | 2025-01-26 14:21 | Magnetic Resonance Report ---
MR brain wo con CLINICAL HISTORY: left side weakness, blurry vision, expressive apha COMPARISON STUDY: Head CT of 01/23/2025 FINDINGS: There is motion artifact on some sequences. No restricted diffusion seen to suggest acute i nfarction. No mass effect, midline shift, or hydrocephalus. No intracranial hemorrhage seen. There ar e a few scattered tiny foci of increased FLAIR signal intensity in the periventricular white matter, nonspecific, but usually represents early chronic small vessel ischemic change. There is a small oblo ng area of high T2 signal intensity peripherally in the left basal ganglia, old infarction versus pro minent perivascular space. IMPRESSION: No evidence of acute infarction. ACT 112: Negative or not required by law. Electronically signed by: Rolan Germain M.D. 01/26/2025 2:19 PM
--- NOTE | 2025-01-26 15:39 | Communication Note ---
Date of Service: January 26, 2025 updated patient about negative brain MRI plan for discharge over the weekend. PT and OT eval prior to discharge, required physician to physician signed out and nurse at the [facility] needed to be notified
--- NOTE | 2025-01-26 18:52 | Hospitalist Progress Note ---
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 hx of GA (not verifiied)hypertension, GERD, BPH,, asthma, conversion disorder The patient brought to the ED via EMS after being found on the floor at [facility] following an unwitnessed fall. He reports that he got up to go to the bathroom, and fell to the ground, hitting his head. The senior living staff states that his speech was slurred, there was no changes left lower extremity), febrile, he had new left sided upper extremity hemiparesis. very similar to previous admissions from 08/10-, and was seen in the emergency department on 11/06/2024 for the same symptoms, a stroke alert workup performed, and then was discharged back to the senior living. During admission from 08/10-08/14/2024, the patient was started on Keppra due to an abnormal EEG. , CT scan of head was negative, CTA head was negative, and CTA neck showed stable bilateral carotid bifurcation mild atheromatous changes that were not considered clinically significant. his has loop record placed at [facility], s/p brain mRI on 01/26/2025 as negative for stroke overall plan now that we confirm MRI is negative for stroke he's need neurology eval for adjusting keppra dose he's need PT and OT evaluation f/u with ophthalmology for left side blurry vision prior to dc to senior living, need sign out doctor to doctor sign out with senior living doctor blurry vision on the left eye; f/u with ophthalmology evaluation dysphagia episode, s/p video swallowing studies, he's on finger food. Strokelike symptoms-(expressive aphasia, left side weakness, blurry vision ) brain MRI on 01/26/2025 negative for stroke, he does not has pacemaker, has loop record and [facility] confirm this is MRI compatible (1.5 T and 3.0 T) neuro suspect this is either conversion disorder versus stroke started on IV fluid. expressive aphasia is improving, his left side blurry vision have no improvement he still has left side weakness, (unable to wringle his toe and finger) Patient had an unwitnessed episode at [facility], found on the floor there, that he reports having fallen and hit his head. aspirin, statin, plavix, permissive HTN He has chronic left lower extremity weakness. It is 2 episodes from 08/10-, and 11/06/2024, he presented with similar symptoms of new left upper extremity weakness, and difficulty with speech/aphasia/slurred speech. CT scan head was negative , CTA head was negative, CTA of neck showed clinically not significant bilateral carotid bifurcation atheromatous changes. Seizure-like activity- Patient had abnormal EEG during admission from 08/10-, and was placed on Keppra that time. Continue Keppra 500 mg p.o. twice daily keppra dose increased to 1000mg BID neuro requested 3 days EEG Atrial fibrillation/hypertension/chronic anticoagulation with Xarelto- Continue Nebivolol, Xarelto, lisinopril, and aspirin Hyperlipidemia- Continue atorvastatin Asthma- Continue Advair discus or equivalent, albuterol sulfate HFA 2 puffs 4 times daily as needed stable GERD-Continue pantoprazole and famotidine BPH-Continue tamsulosin Admission and Anticipated Discharge Date Admission Date: January 23, 2025 Subjective his brain MRI negative for stroke still has left side vision change. need f/u with ophthalmology f/u spoke with neuro, either conversion disorder versus seizure potential dc over the weekend need sign out to senior living doctor prior to dc Physical Exam Physical Exam: VITALS: Reviewed. WEIGHT/BMI reviewed. GEN: Healthy appearing, well-developed, NAD. -Head: NC/AT; -Eyes: PERRL, EOMI. No discharge or redn ess; -Ears: External ears are normal. Normal TMs. -Nose: Normal nares. -Mouth and throat: MMM. Normal gums, muc azul, palate,. Good dentition. NECK: Supple, with no masses. CV: RRR, no m/r/g. LUNGS: CTAB, no w/r/c. ABD: Soft, NT/ND, NBS, no masses or organomegaly. : N/A EXT: No clubbing, cyanosis, or edema. NEURO: decrease strength in the left arm; decrease vision on the left side; AAox3; no slurred speech; following command Results & Data Results & Data Vital Signs (Past 12 Hours) Vital Signs Temp Pulse Pulse Resp BP Pulse Ox O2 Del Method 01/26/25 15:27 36.8 C 67 18 166/96 H 95 Room Air 01/26/25 14:41 65 01/26/25 12:15 37.0 C 54 L 18 141/91 H 95 Room Air 01/26/25 08:41 36.5 C 68 19 130/84 94 Room Air 01/26/25 07:38 58 L Laboratory Results Laboratory Results - last 72 hr 01/24/25 01/25/25 01/26/25 06:22 05:48 05:51 WBC 8.17 6.10 7.28 RBC 4.42 L 4.13 L 4.13 L Hgb 13.6 L 12.3 L 12.6 L Hct 39.6 L 36.7 L 36.6 L MCV 89.6 88.9 88.6 MCH 30.8 29.8 30.5 MCHC 34.3 33.5 34.4 RDW Std Deviation 42.8 41.5 41.1 RDW Coeff of Margareth 13.1 12.8 12.6 Plt Count 146 117 L 140 MPV 12.2 11.9 11.8 Immature Gran % (Auto) 0.2 0.2 Neut % (Auto) 68.2 62.0 Lymph % (Auto) 20.9 25.1 [place] % (Auto) 8.7 8.4 Eos % (Auto) 1.5 3.6 Baso % (Auto) 0.5 0.7 Neut # (Auto) 5.57 3.79 Lymph # (Auto) 1.71 1.53 [place] # (Auto) 0.71 H 0.51 Eos # (Auto) 0.12 0.22 Baso # (Auto) 0.04 0.04 Immature Gran # (Auto) 0.02 0.01 Sodium 141 139 140 Potassium 3.8 3.8 3.8 Chloride 110 H 110 H 109 H Carbon Dioxide 25 24 26 Anion Gap 6 5 5 BUN 21 15 11 Creatinine 1.02 0.79 0.80 Est Cr Clr Drug Dosing 95.9 123.7 122.1 eGFR 91.79 110.95 110.53 BUN/Creatinine Ratio 20.6 H 19.0 13.8 Glucose 91 88 94 Calcium 8.6 8.4 L 8.7 Phosphorus 3.9 3.6 Magnesium 2.1 1.9 2.0 Total Bilirubin 0.9 AST 14 ALT 13 Alkaline Phosphatase 66 Total Protein 5.7 L Albumin 3.7 3.4 3.5 Globulin 2.2 L Albumin/Globulin Ratio 1.6 PG Care Time/CCT Total # of Minutes Spent Total Time Spent with Patient: Total time spent is greater than 50% in coordination of care (as documented) at patient's floor/unit and/or counseling patient: Coding Level of Care Code 92924 SUB INP/OBS CARE 1/25MIN Diagnoses Atrial fibrillation I48.91 Hypertension I10 Seizure-like activity R56.9 Hemiparesis affecting left side as late effect of stroke I69.354 Stroke-like symptoms R29.90 Time Spent (min) 25
[2025-01-27 06:16] LABS: Hematocrit (blood only) 39.2 % (42.0-52.0); Hemoglobin 13.4 g/dl (14.0-18.0); Mean Corpuscular Hemoglobin 29.9 pg (25.0-34.0); Mean Corpuscular Volume 87.5 fL (80.0-100.0); Platelet Count 146 K/uL (130-400); RDW Standard Deviation 40.4 fL (36.4-46.3); Red Blood Count 4.48 M/uL (4.70-6.10); White Blood Count 8.57 K/ul (4.8-10.8)
[2025-01-27 06:36] LABS: Alanine Aminotransferase 13.0 U/L (7-52); Albumin Globulin Ratio 1.6 (0.9-2); Albumin Level 3.6 gm/dl (3.4-5.0); Alkaline Phosphatase 66.0 U/L (34-104); Anion Gap 5.0 (3-11); Bilirubin,Total 0.7 mg/dl (0.2-1.0); Blood Urea Nitrogen 15.0 mg/dl (6-23); Calcium 8.7 mg/dl (8.6-10.3); Carbon Dioxide 26.0 mmol/L (21-32); Chloride 109.0 mmol/L (98-107); Creatinine Clr Calc Pharmacy 116.5 ml/min; Globulin 2.3 gm/dl (2.5-4.0); Glucose 91.0 mg/dl (70-99(Fasting)); Potassium 3.9 mmol/L (3.5-5.1); Sodium 140.0 mmol/L (136-145); Total Protein 5.9 gm/dl (6.0-8.3)
[2025-01-27 07:22] VITALS: RESP 18
[2025-01-27 11:04] VITALS: BP 130/83; TEMP 98.1; O2SAT 94
[2025-01-27] MEDS: levETIRAcetam 500 MG TAB PO ONE (11:23)
--- NOTE | 2025-01-27 13:05 | Discharge Summary ---
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 hx of MD (not verifiied)hypertension, GERD, BPH,, asthma, conversion disorder The patient brought to the ED via EMS after being found on the floor at [facility] following an unwitnessed fall. He reports that he got up to go to the bathroom, and fell to the ground, hitting his head. The [facility] staff states that his speech was slurred, there was no changes left lower extremity), febrile, he had new left sided upper extremity hemiparesis. very similar to previous admissions from 08/10-, and was seen in the emergency department on 11/06/2024 for the same symptoms, a stroke alert workup performed, and then was discharged back to the [facility]. During admission from 08/10-08/14/2024, the patient was started on Keppra due to an abnormal EEG. , CT scan of head was negative, CTA head was negative, and CTA neck showed stable bilateral carotid bifurcation mild atheromatous changes that were not considered clinically significant. 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 When pt was asked to touch his forehead, nose, chin, he was not able perform these actions as his hands got very shaky. However, he touched the Telemetry computer lab para professional his chest that was partially detached without any difficulty. Later, when he was asked to cover his left eye, then his right eye, he was able to do so without any difficulty or abnormality in movement. He also made eye contact when I first walked in, but the rest of the encounter, he did not make eye contact stating he cannot see. However, when he was reminded that he was making eye contact initially, he then started to make eye contact intermittently. He also had a stutter during the initial parts of the discussion, however, as conversation entered into discussions of discrepancies, his stutter completely resolved for the duration of the encounter instead of worsening. His case was discussed with inpt neurologist and agrees there is component of functional neurological disorder. However, it was recommended that he complete ambulatory EEG if possible. Additionally, he will need ophthalmology evaluation. He will need ongoing PT / OT eval as [facility] sees fit. Pt's current presentation, evaluation, findings, and recommendations were discussed with Dr Elicia White from [facility] and pt is accepted back. blurry vision on the left eye; f/u with ophthalmology evaluation dysphagia episode, s/p video swallowing studies, he's on finger food. Strokelike symptoms-(expressive aphasia, left side weakness, blurry vision ) - brain MRI on 01/26/2025 negative for stroke, he does not has pacemaker, has loop record and [facility] confirm this is MRI compatible (1.5 T and 3.0 T) - neuro suspect this is either conversion disorder versus stroke - expressive aphasia - his left side blurry vision have no improvement - he still has left side weakness, (unable to wiggle his toe and finger) - Patient had an unwitnessed episode at [facility], found on the floor there, that he reports having fallen and hit his head. - aspirin, statin, plavix, permissive HTN - He has chronic left lower extremity weakness. - It is 2 episodes from 08/10-, and 11/06/2024, he presented with similar symptoms of new left upper extremity weakness, and difficulty with speech/aphasia/slurred speech. - CT scan head was negative , CTA head was negative, CTA of neck showed clinically not significant bilateral carotid bifurcation atheromatous changes. Seizure-like activity- - Patient had abnormal EEG during admission from 08/10-, and was placed on Keppra that time. - keppra dose increased to 1000mg BID - EEG while inpt is abnormal, but this could be motion artifact, difficult to determine per neuro and recs ambulatory EEG - Ambulatory EEG- to be done as outpatient Atrial fibrillation/hypertension/chronic anticoagulation with Xarelto- Continue Nebivolol, Xarelto, lisinopril, and aspirin Hyperlipidemia- Continue atorvastatin Asthma- Continue Advair discus or equivalent, albuterol sulfate HFA 2 puffs 4 times daily as needed stable GERD-Continue pantoprazole and famotidine BPH-Continue tamsulosin Dispo- d/c to [facility] Admission HPI Per Admitting Provider The patient is a 45-year-old male resident of [facility], with a past medical history including CVA with residual left lower extremity paralysis, atrial fibrillation on Xarelto, hypertension, GERD, BPH, seizure disorder, asthma, hyperlipidemia, conversion disorder, and reported history of MD that was not verified.The patient brought to the emergency department via EMS after being found on the floor at [facility] following an unwitnessed fall. He reports that he got up to go to the bathroom, and fell to the ground, hitting his head. The [facility] staff states that his speech was slurred, there was no changes left lower extremity), febrile, he had new left sided upper extremity hemiparesis. His presentation very similar to previous admissions from 08/10-, and was seen in the emergency department on 11/06/2024 for the same symptoms, a stroke alert workup performed, and then was discharged back to the [facility]. During admission from 08/10-08/14/2024, the patient was started on Keppra due to an abnormal EEG. This evening, CT scan of head was negative, CTA head was negative, and CTA neck showed stable bilateral carotid bifurcation mild atheromatous changes that were not considered clinically significant. Discharge Exam Gen: no acute distress, lying in bed comfortable HEENT: NC/AT, MMM Lungs: nonlabored breathing, CTAB CVS: s1s2nl, RRR Abd: nl bowel sounds, soft, NT / ND : no jones Ext: no edema Neuro: AAOx3, left sided weakness Psych: calm, cooperative Discharge Plan Discharge Items [facility]position[facility] Reason For Visit: LEFT SIDE WEAKNESS, APHASIA Discharge Diagnosis: Functional Disorder Condition on Discharge: Fair Activity: Resume your previous activity Non-emergency contact: Primary Care Provider Call non-emergency contact if: you have any medication questions and your symptoms worsen Follow-up/Referrals: Jimy YO [Primary Care Provider] - Diet: Heart Healthy Addtl Attending Provider Instructions: You need ophthalmology eval as outpatient You need ambulatory EEG Ongoing PT / OT eval Stroke workup negative You are stable for discharge Pending Studies at Discharge: No Stand-Alone Forms: My [facility] Skilled Items Patient informed of condition?: Yes Discharge Level of Care: Other Communicable Disease: No Discharge Prognosis: Stable Lines: None Urinary Catheter: No Medications and DC Order Prescriptions: New levetiracetam [Keppra] 500 mg Tablet 1,000 mg PO BID 30 Days Qty: 120 0RF Continued aspirin 81 mg Tablet,Delayed Release (Dr/Ec) 81 mg PO DAILY lisinopril 30 mg Tablet 30 mg PO DAILY atorvastatin 80 mg Tablet 80 mg PO HS famotidine 20 mg Tablet 20 mg PO HS pantoprazole 40 mg Tablet,Delayed Release (Dr/Ec) 40 mg PO DAILY fluticasone propion-salmeterol [Advair Diskus] 500-50 mcg/dose Blister With Device 1 inh INHALATION BID nitroglycerin [Nitrostat] 0.4 mg Tablet, Sublingual 0.4 mg sublingual .Q 5 MINUTES X3 PRN (Reason: Chest Pain) albuterol sulfate 90 mcg/actuation Hfa Aerosol Inhaler 2 puff INHALATION QID PRN (Reason: Shortness Of Breath) nebivolol 20 mg Tablet 20 mg PO DAILY Xarelto 20 mg Tablet 20 mg PO DAILY Rx Instructions: must administer with evening meal tamsulosin 0.4 mg Capsule 0.4 mg PO HS Qty: 30 0RF Discontinued levetiracetam [Keppra] 500 mg Tablet 500 mg PO BID Discharge Orders: Discharge Order (Routine); Ordered 01/27/25 Ordered By: Laureen Carter Admission Data Admit Date/Time: 01/23/25 10:30 Attending Provider: Laureen Carter Admit Provider: Arpit Kitchen Primary Care Provider: Jimy YO Other Providers: Arpit Kitchen; Brant Alberto Hospital Stay Data Consultations 01/22/25 23:19 ED Decision to Admit Stat 01/23/25 02:33 Consult Neurology Routine Diagnostic Imagining Performed 01/22/25 21:53 CT angio head w con Stat CT angio neck with con Stat CT head/brain wo con Stat 01/23/25 09:00 CT head/brain wo con Routine 01/23/25 12:20 CT head/brain wo con Stat 01/24/25 10:30 FL video swallow Routine 01/26/25 09:00 MR brain wo con Stat Discharge Instructions Given to Patient (Per Discharging Provider) You need ophthalmology eval as outpatient You need ambulatory EEG Ongoing PT / OT eval Stroke workup negative You are stable for discharge Total Time Total Time Spent Total Time Spent (In Minutes): 45 Coding Level of Care Code 16494 INP/OBS DISCH >30 MIN Diagnoses Atrial fibrillation I48.91 Hypertension I10 Seizure-like activity R56.9 Hemiparesis affecting left side as late effect of stroke I69.354 Stroke-like symptoms R29.90
[2025-01-27 13:54] VITALS: PULSE 55
[2025-01-27] MEDS ORDERED: levETIRAcetam 500 MG TAB PO SCH (21:00)
--- NOTE | 2025-02-07 10:22 | Coding Query ---
CODING QUERY To promote full compliance with coding requirements relating to patient care, provider participation is requested in all cases of community health planning director uncertainty. Please assist us with the question(s) below: Coding Question(s): Can you provide clarification if a stroke was ruled out? The MRI was negative but symptoms were stated to be presenting in an atypical fashion. 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 When pt was asked to touch his forehead, nose, chin, he was not able perform these actions as his hands got very shaky. However, he touched the Telemetry consumer marketing specialist his chest that was partially detached without any difficulty. Later, when he was asked to cover his left eye, then his right eye, he was able to do so without any difficulty or abnormality in movement. He also made eye contact when I first walked in, but the rest of the encounter, he did not make eye contact stating he cannot see. However, when he was reminded that he was making eye contact initially, he then started to make eye contact intermittently. He also had a stutter during the initial parts of the discussion, however, as conversation entered into discussions of discrepancies, his stutter completely resolved for the duration of the encounter instead of worsening. His case was discussed with inpt neurologist and agrees there is component of functional neurological disorder. However, it was recommended that he complete ambulatory EEG if possible. Additionally, he will need ophthalmology evaluation. He will need ongoing PT / OT eval as [facility] sees fit. Pt's current presentation, evaluation, findings, and recommendations were discussed with Dr Elicia White from [facility] and pt is accepted back. Work up has been negative for stroke. Pt will need ambulatory EEG as documented above as well as r/o ophthalmologic pathologies. Thank you Cat Allen Principal Diagnosis: "that condition established after study, to be chiefly responsible for occasioning the admission of the patient to the hospital for care." Co-Existing Principal Diagnosis: "when two or more diagnoses equally meet the criteria for principal diagnosis as determined by the circumstances of admission, diagnostic work up, and/or therapy provided, and the Alphabetic Index, Tabular List, or another coding guideline does not provide sequencing direction, any one of the diagnoses may be sequenced first." "When the physician has documented what appears to be a current diagnosis in the body of the record, but has not included the diagnosis in the final diagnostic statement, the physician should be asked whether the diagnosis should be added." (Source [facility]oding [facility] 2 QTR90. p3-4) EKATERINA
== END 2025-01-27 16:24 | DRG 309 ==
LOC: ED 21:42 → 2S 21:42 → SUATTDRO 01-23 00:58 → 2S 01-23 02:04 → SUATTDRO 01-23 10:30 → 4W 01-24 17:11